=== PATIENT | female | born 1950 | race Caucasian/White ===

== ENCOUNTER 2018-04-12 20:32 | Inpatient (IN) | payer OTHER ==
[~2018-04-12] VITALS: Ht 160 cm; Wt 83.9 kg
--- OUTSIDE RECORDS SUMMARY | 2018-04-12 20:35 | XMS REPORT | Clinical Summary ---
Author Author [facility] Organization [facility] Address Unknown Phone Unavailable Care Team Providers Care Electronic Sales And Service Technician Name Role Phone Cristiano Tipton DO PCP Allergies Active Allergy Reactions Severity Noted Date Comments Lorazepam Other (See Comments) Medium 03/26/2017 Agitation, delirious Codeine 03/26/2017 Current Medications Prescription Sig. Disp. Refills Start End Date Status Date insulin ASPART (NovoLOG Inject 8 Units under the Active Flexpen) 100 unit/mL skin 3 (three) times a insulin pen day before meals. insulin GLARGINE (LANTUS Inject 24 Units under the Active SOLOSTAR) 100 unit/mL skin nightly. injection (pen) traZODone (DESYREL) 100 Take 100 mg by mouth Active MG tablet nightly as needed for sleep. pravastatin (PRAVACHOL) Take 10 mg by mouth Active 10 MG tablet nightly. memantine (NAMENDA 5 mg/day for=1 week; 5 mg 60 tablet 12 04/17/20 04/17/20 Active TITRATION JEANNINE) 5-10 mg twice daily for=1 week; 17 18 tablet pack 15 mg/day given in 5 mg and 10 mg doses for=1 week; then 10 mg twice daily melatonin 3 mg tablet Take 3 mg by mouth Active nightly as needed for sleep. lisinopril Take 1 tablet (10 mg 60 tablet 0 07/25/20 Active (PRINIVIL,ZESTRIL) 10 mg total) by mouth 2 (two) 17 tablet times a day for 30 days. lisinopril Take 10 mg by mouth every 07/25/20 Discontin (PRINIVIL,ZESTRIL) 10 mg morning. 17 ued tablet aspirin (ECOTRIN) 81 MG Take 81 mg by mouth every 07/25/20 Discontin enteric coated tablet morning. 17 ued biotin 5 mg capsule Take 5 mg by mouth every 07/24/20 Discontin morning. 17 ued amLODIPine (NORVASC) 5 mg Take 1 tablet (5 mg 30 tablet 0 07/25/20 08/24/20 tablet total) by mouth daily for 17 17 30 days. aspirin (ECOTRIN) 325 MG Take 1 tablet (325 mg 30 tablet 0 07/25/20 08/24/20 enteric coated tablet total) by mouth daily for 17 17 30 days. Active Problems Problem Noted Date Severe anemia 04/08/2018 Altered mental status, unspecified 03/26/2017 Encounters Date Type Specialty Care Team Description 04/10/2018 Anesthesia Gastroenterology Nehemias Michel MD 04/10/2018 Procedure Pass Gastroenterology 04/10/2018 Surgery Gastroenterology Brodie Williamson MD COLONOSCOPY 04/08/2018 Emergency General Internal Medicine Nic Rock, Severe anemia (Primary - MD Dx); 04/10/2018 Karen Rodriguez MD Hypokalemia; Mitch Pimentel, DO Weakness 12/04/2017 Transcribe Access Jay Tipton, Nonintractable episodic Orders DO headache, unspecified headache type (Primary Dx); Personal history of malignant neoplasm of bronchus and lung 07/24/2017 Emergency General Internal Medicine Catrachito Singh MD Altered mental status, - Thomas Sharma MD unspecified (Primary Dx) 07/25/2017 04/17/2017 Lab Lab Deonna Carlisle MD Memory difficulties; Vascular dementia without behavioral disturbance 04/17/2017 Office Visit Neurology Deonna Carlisle MD Memory difficulties (Primary Dx); Vascular dementia without behavioral disturbance; Gait difficulty after 04/11/2017 Family History Medical History Relation Name Comments Cancer Father Tumor in stomach Diabetes Mother Relation Name Status Comments Father Mother Social History Tobacco Use Types Packs/Day Years Used Date Former Smoker Cigarettes 1 Quit: 2009 Smokeless Tobacco: Never Used Alcohol Use Drinks/Week oz/Week Comments No Sex Assigned at Date Recorded Not on file Last Filed Vital Signs Vital Sign Reading Time Taken Blood Pressure 102/63 04/10/2018 4:48 PM CDT Pulse 60 04/10/2018 4:48 PM CDT Temperature 36.6 C (97.8 F) 04/10/2018 4:48 PM CDT Respiratory Rate 21 04/10/2018 4:48 PM CDT Oxygen Saturation 99% 04/10/2018 4:48 PM CDT Inhaled Oxygen - - Concentration Weight 85.3 kg (188 lb) 04/08/2018 3:53 PM CDT Height 157.5 cm (5' 2") 04/08/2018 3:53 PM CDT Body Mass Index 34.39 04/08/2018 3:53 PM CDT Plan of Treatment Health Maintenance Due Date Last Done Comments DIABETIC FOOT EXAM 1960 DIABETIC RETINAL EYE EXAM 1960 COLON CANCER SCREENING 2000 SHINGRIX VACCINE (#1) 2000 ZOSTER VACCINE 2010 BREAST CANCER SCREENING 02/24/2015 02/24/2013, 02/11/2013 PNEUMOCOCCAL 2015 POLYSACCHARIDE VACCINE AGE 65 AND OVER PNEUMOCOCCAL-13 2015 INFLUENZA VACCINE 06/24/2018 Procedures Procedure Name Priority Date/Time Associated Diagnosis Comments ESOPHAGOGASTRODUODENOSCOP 04/10/2018 ANEMIA Y (EGD) 9:30 AM CDT COLONOSCOPY 04/10/2018 ANEMIA 9:30 AM CDT SC CRITICAL CARE, E/M Routine 04/08/2018 Results for this 30-74 MINUTES 4:09 PM CDT procedure are in the results section. ECHOCARDIOGRAM 2D Routine 07/24/2017 Results for this COMPLETE W MMODE SPECTRAL 7:05 PM CDT procedure are in the COLOR DOPPLER ([id number]) results section. after 04/11/2017 Results * POC glucose (04/10/2018 5:08 PM) Only the most recent of 9 results within the time period is included. Component Value Ref Range POC glucose 159 (H) 65 - 99 mg/dL Comment: Meter ID: [id number] Manufacturing Engineer Paint: Wojciech Francis Specimen Performing Laboratory [facility] DEPARTMENT OF PATHOLOGY AND GENOMIC MEDICINE [address] [place] [address] * Estimated GFR (04/10/2018 4:45 PM) Only the most recent of 5 results within the time period is included. Component Value Ref Range GFR Non Af Amer 62 mL/min/1.73 m2 GFR Af Amer 76 mL/min/1.73 m2 Comment: Chronic kidney disease: <60 mL/min/1.73m2 Kidney failure: <15 mL/min/1.73m2 The estimated GFR is calculated from the IDMS-traceable Modification of Diet in Renal Disease Equation. The accuracy of the calculation is poor when the creatinine is normal. Calculated values >90 mL/min/1.73m2 are not reported. This equation has not been validated in children (<18 years), women, the elderly (>70 years), or ethnic groups other than Caucasians and Americans. Specimen Performing Laboratory Plasma specimen [facility] PATHOLOGY AND [facility] [address] [place] [address] * Basic metabolic panel (04/10/2018 4:45 PM) Only the most recent of 3 results within the time period is included. Component Value Ref Range Sodium 140 135 - 148 mEq/L Potassium 3.4 (L) 3.5 - 5.0 mEq/L Chloride 102 98 - 112 mEq/L CO2 21 (L) 24 - 31 mEq/L Anion gap 17@ANIO (H) 7 - 15 mEq/L BUN 10 8 - 23 mg/dL Creatinine 0.9 0.5 - 0.9 mg/dL Glucose 175 (H) 65 - 99 mg/dL Calcium 8.5 (L) 8.8 - 10.2 mg/dL Specimen Performing Laboratory Plasma specimen [facility] PATHOLOGY AND [facility] [address] [place] [address] * Smear review (04/10/2018 4:52 AM) Only the most recent of 4 results within the time period is included. Component Value Ref Range Platelet slide review Dorita adequate Anisocytosis Marked (A) Polychromasia Moderate Tear drop cells Occasional Schistocytes Occasional Ovalocytes Moderate Bite Cells Moderate (A) Elliptocytes Occasional Anisochromia Moderate Specimen Performing Laboratory [facility] PATHOLOGY AND [facility] [address] [place] [address] * CBC with platelet and differential (04/10/2018 4:52 AM) Only the most recent of 4 results within the time period is included. Component Value Ref Range WBC 5.24 4.50 - 11.00 k/uL RBC 4.92 4.20 - 5.50 m/uL HGB 9.0 (L) 12.0 - 16.0 g/dL HCT 32.0 (L) 37.0 - 47.0 % MCV 65.0 (L) 82.0 - 100.0 fL MCH 18.3 (L) 27.0 - 34.0 pg MCHC 28.1 (L) 31.0 - 37.0 g/dL RDW - SD 55.0 37.0 - 55.0 fL MPV ---- 8.8 - 13.2 fL Platelet count 211 150 - 400 k/uL Nucleated RBC 0.00 /100 WBC Neutrophils 66.2 39.0 - 69.0 % Lymphocytes 22.3 (L) 25.0 - 45.0 % Monocytes 6.7 0.0 - 10.0 % Eosinophils 3.4 0.0 - 5.0 % Basophils 1.0 0.0 - 1.0 % Specimen Performing Laboratory Blood [facility] DEPARTMENT OF PATHOLOGY AND GENOMIC MEDICINE [address] [place] [address] * ECG Pre/Post Op (04/09/2018 1:12 PM) Component Value Ref Range Ventricular rate 82 Atrial rate 82 SC interval 188 QRSD interval 78 QT interval 410 QTC interval 479 P axis 1 49 QRS axis 1 11 T wave axis 53 EKG impression Normal sinus rhythm-Normal ECG-In automated comparison with ECG of 24-JUL-2017 13:42,-No significant change was found- Specimen Performing Laboratory [facility] MUSE [address] [place] [address] * Ferritin level (04/09/2018 12:00 PM) Component Value Ref Range Ferritin level <13 (A) 13 - 150 ng/mL Specimen Performing Laboratory Plasma specimen [facility] DEPARTMENT OF PATHOLOGY AND GENOMIC MEDICINE [address] [place], [place] [id number] * CT Lumbar Spine Wo Contrast (04/09/2018 9:39 AM) Specimen [facility] [address] [place], [place] [id number] Narrative EXAMINATION:CT LUMBAR SPINE WO CONTRAST CLINICAL HISTORY:back pain COMPARISON: None. FINDINGS: Noncontrast CT lumbar spine is interpreted. CT imaging was performed with iterative reconstruction techniques and/or automated exposure control to reduce radiation dose. Evaluation of the canal contents is limited by the absence of intrathecal contrast. Vertebral heights are preserved. No displaced fracture is seen. No aggressive bone lesion is identified. L1-2: Minimal disc degenerative changes. L2-3: Mild disc degenerative changes. Question of minimal disc bulge. Minimal facet degenerative changes. L3-4: Mild disc degenerative changes. Question of minimal disc bulge. Minimal bilateral facet degenerative changes. L4-5: Mild disc degenerative changes. Minimal bilateral facet degenerative changes. L5-S1: Mild disc degenerative changes that are asymmetric and most pronounced on the right. Moderate right and mild left facet arthrosis. The paraspinous soft tissues are unremarkable. IMPRESSION: No acute abnormality of the lumbar spine is identified. [facility]-[id number] Procedure Note Hm Interface, Radiology Results - 04/09/2018 9:51 AM CDT EXAMINATION: CT LUMBAR SPINE WO CONTRAST CLINICAL HISTORY: back pain COMPARISON: None. FINDINGS: Noncontrast CT lumbar spine is interpreted. CT imaging was performed with iterative reconstruction techniques and/or automated exposure control to reduce radiation dose. Evaluation of the canal contents is limited by the absence of intrathecal contrast. Vertebral heights are preserved. No displaced fracture is seen. No aggressive bone lesion is identified. L1-2: Minimal disc degenerative changes. L2-3: Mild disc degenerative changes. Question of minimal disc bulge. Minimal facet degenerative changes. L3-4: Mild disc degenerative changes. Question of minimal disc bulge. Minimal bilateral facet degenerative changes. L4-5: Mild disc degenerative changes. Minimal bilateral facet degenerative changes. L5-S1: Mild disc degenerative changes that are asymmetric and most pronounced on the right. Moderate right and mild left facet arthrosis. The paraspinous soft tissues are unremarkable. IMPRESSION: No acute abnormality of the lumbar spine is identified. [facility]-[id number] * Transfuse RBC (04/09/2018 5:16 AM) Only the most recent of 3 results within the time period is included. * Prepare RBC, 2 Units (04/08/2018 6:46 PM) Component Value Ref Range Product name Red Blood Cells -1, Leukored Unit number [id number] Product code [id number] Dispense status Transfused Blood expiration date Blood type code 8400 Blood type AB POSITIVE Product name Red Blood Cells -1, Leukored Unit number [id number] Product code [id number] Dispense status Transfused Blood expiration date Blood type code 8400 Blood type AB POSITIVE Specimen Performing Laboratory [facility] DEPARTMENT OF PATHOLOGY AND GENOMIC MEDICINE [address] [place] [address] * Type and screen (04/08/2018 6:46 PM) Component Value Ref Range ABO grouping AB Rh type POS Antibody screen NEG Specimen Performing Laboratory Blood [facility] DEPARTMENT PATHOLOGY AND [address] [place] [address] * Urinalysis screen and microscopy, with reflex to culture (04/08/2018 6:25 PM) Only the most recent of 2 results within the time period is included. Component Value Ref Range Specimen site Clean catch Color, UA Yellow Appearance, UA Clear Specific gravity, UA 1.006 1.001 - 1.035 pH, UA 7.0 5.0 - 8.5 Protein, UA 3+ (A) Negative Glucose, UA 3+ (A) Negative Ketones, UA Negative Negative Bilirubin, UA Negative Negative Blood, UA Negative Negative Nitrite, UA Negative Negative Urobilinogen, UA Negative <2.0 Leukocyte esterase, UA Negative Negative Epithelial cells, UA Few /HPF WBC, UA 0-5 0 - 4 /HPF RBC, UA 0-5 0 - 5 /HPF Bacteria, UA None seen None seen Yeast, UA None seen Yeast with pseudohyphae, None seen UA Specimen Performing Laboratory Urine [facility] PATHOLOGY [address] [place] [address] * Urine culture (04/08/2018 6:25 PM) Only the most recent of 2 results within the time period is included. Component Value Ref Range Urine culture SEE COMMENTComment: Bacteriuria screen negative. Specimen Performing Laboratory Urine [facility] PATHOLOGY [address] [place] [address] * CRITICAL CARE (04/08/2018 4:09 PM) Narrative Nic Rock MD 04/08/20189:46 PM Critical Care Performed by: NIC ROCK Authorized by: NIC ROCK Critical care provider statement: Critical care time (minutes):35 Critical care time was exclusive of:Separately billable procedures and treating other patients Critical care was necessary to treat or prevent imminent or life-threatening deterioration of the following conditions:Circulatory failure Critical care was time spent personally by me on the following activities:Blood draw for specimens, development of treatment plan with patient or surrogate, discussions with primary provider, discussions with consultants, ordering and performing treatments and interventions, ordering and review of laboratory studies, re-evaluation of patient's condition, pulse oximetry, review of old charts, evaluation of patient's response to treatment, examination of patient, obtaining history from patient or surrogate and interpretation of cardiac output measurements Tye 'yes' if you are taking over critical care for this patient from another provider.: no * Thyroid stimulating hormone (04/08/2018 10:10 AM) Only the most recent of 2 results within the time period is included. Component Value Ref Range TSH 2.73 0.27 - 4.20 uIU/mL Specimen Performing Laboratory Plasma specimen [facility] DEPARTMENT OF PATHOLOGY AND GENOMIC MEDICINE [address] [place] [address] * Hemoglobin A1c (04/08/2018 10:10 AM) Only the most recent of 2 results within the time period is included. Component Value Ref Range Hemoglobin A1C 7.4 (H) 4.0 - 6.0 % Comment: Less than 6% - Goal of therapy for Type II Diabetes Less than 7%- Goal of therapy for Type I Diabetes Less than 8%- Acceptable control for Type I or Type II Diabetes Greater than 8%- Unacceptable control; action indicated. (A DA94) Specimen Performing Laboratory Blood [facility] OF PATHOLOGY AND [facility] MEDICINE [address] [place] [address] [place] [address] * Lipid panel (04/08/2018 10:10 AM) Only the most recent of 3 results within the time period is included. Component Value Ref Range Cholesterol 120 <200 mg/dL Triglycerides 163 (H) <150 mg/dL HDL cholesterol 37 (L) >40 mg/dL LDL cholesterol 56Comment: Result obtained by direct LDL <100 mg/dL measurement Lipid panel SeeBelow interpretation Comment: Total Cholesterol (mg/dL) <200 Desirable 200-239 Borderline-high >=240 High Triglycerides (mg/dL) <150 Normal 150-199 Borderline-high 200-499 High >=500 Very high HDL Cholesterol (mg/dL) <40 Low (male) <40 Low (female) LDL Cholesterol (mg/dL) <100 Optimal 100-129 Near or above optimal 130-159 Borderline-high 160-189 High >=190 Very high Risk Catergories that modify LDL goals. Risk Catergories LDL goal (mg/dL) CHD and CHD risk equivalent <100 (10-year risk >20%) Multiple (2+) risk factors <130 (10-year risk=<20%) 0-1 risk factors <160 (<10-year risk) Defining levels of lipids in metabolic syndrome Triglycerides >=150 mg/dL HDL Cholesterol Men <40 mg/dL Women <40 mg/dL Non-HDL cholesterol is a second target for therapy in persons with high triglycerides (>=200 mg/dL) Specimen Performing Laboratory Plasma specimen [facility] OF PATHOLOGY AND GENOMIC MEDICINE [address] [place] [address] [place] [address] * Comprehensive metabolic panel (04/08/2018 10:10 AM) Only the most recent of 2 results within the time period is included. Component Value Ref Range Sodium 143 135 - 148 mEq/L Potassium 2.7 (LL) 3.5 - 5.0 mEq/L Comment: Results called to and read back by ILNDA WALDEN AT DR. TIPTON OFFICE at 04/08/2018 14:10 by _EL_. Chloride 101 98 - 112 mEq/L CO2 26 24 - 31 mEq/L Anion gap 16@ANIO (H) 7 - 15 mEq/L BUN 10 8 - 23 mg/dL Creatinine 0.7 0.5 - 0.9 mg/dL Glucose 191 (H) 65 - 99 mg/dL Calcium 9.2 8.8 - 10.2 mg/dL Protein 7.6 6.3 - 8.3 g/dL Comment: 4.6-7.0 g/dL 1 week 4.4-7.6 g/dL 7 months-1year 5.1-7.3 g/dL 1-2 years 5.6-7.5 g/dL >3 years 6.0-8.0 g/dL 18-150 6.3-8.3 g/dL Albumin 4.0 3.5 - 5.0 g/dL A/G ratio 1.1 0.7 - 3.8 Alkaline phosphatase 121 (H) 35 - 104 U/L AST 41 (H) 10 - 35 U/L ALT 29 5 - 50 U/L Total bilirubin 0.5 0.0 - 1.2 mg/dL Specimen Performing Laboratory Plasma specimen [facility] DEPARTMENT OF PATHOLOGY AND GENOMIC MEDICINE [address] [place] [address] * Pv carotid duplex (07/25/2017 10:25 AM) Component Value Ref Range L CCA Prox 11 cm/s L CCA Prox 81.2 cm/s L ECA Prox 10.3 cm/s L ECA Prox 148.3 cm/s R ECA Prox 5.4 cm/s L ICA Prox 33.3 cm/s L ICA Prox 120.4 cm/s R ICA Prox 17.6 cm/s R ICA Prox 100 cm/s L ICA/CCA Ratio 1.6 R ICA/CCA Ratio 1.3 L CCA Max 81.20 cm/s R CCA Max 114.50 cm/s L ICA Max 120.40 cm/s R ICA Max 139.10 cm/s R CCA Prox 10.9 cm/s R CCA Prox 60.3 cm/s R ICA Dist 23 cm/s L ICA Dist 27.3 cm/s L ICA DIST 83.8 cm/s R Car Bulb 145.70 cm/s R CCA Dist 12.8 cm/s R CCA Dist 114.5 cm/s R Vert Art 6.40 cm/s L Car Bulb 28.40 cm/s L Car Bulb 128.50 cm/s R Car Bulb 27.40 cm/s L CCA Dist 13.1 cm/s L CCA Dist 64.7 cm/s R ECA Prox 86.00 cm/s R ICA Dist 139.1 cm/s L Vert Art 17.60 cm/s L Vert Art 62.8 cm/s R Vert Art 38.60 cm/s Specimen Performing Laboratory [facility] [address] [place] [address] Narrative There is moderate atherosclerotic plaque in the right carotid bulb associated with 50-69% stenosis in the right ICA. There is moderate atheromatous plaque in the left carotid bulb associated with the 50-69% stenosis in the left ICA. * Sedimentation rate (07/24/2017 7:29 PM) Component Value Ref Range Sedimentation rate 46 (H) 0 - 20 mm/hr Specimen Performing Laboratory Blood [facility] DEPARTMENT OF PATHOLOGY AND GENOMIC MEDICINE [address] [place] [address] * RAMY (07/24/2017 7:29 PM) Component Value Ref Range RAMY screen Not Detected Not-Detected Specimen Performing Laboratory Blood [facility] DEPARTMENT OF PATHOLOGY AND GENOMIC MEDICINE [address] [place] [address] * Vitamin B12 level (07/24/2017 7:29 PM) Only the most recent of 2 results within the time period is included. Component Value Ref Range Vitamin B12 441 211 - 946 pg/mL Comment: Significant overlap exists between normal and deficiency states. However, most patients with deficiencies will have Serum B12 <200 pg/mL. Specimen Performing Laboratory Serum [facility] DEPARTMENT OF PATHOLOGY AND GENOMIC MEDICINE [address] [place] [address] * Echocardiogram complete w contrast and 3D if needed (07/24/2017 7:05 PM) Component Value Ref Range BSA 1.96 m2 AoV Area, Vmax 3.07 cm2 AoV Area, VTI 3.71 cm2 AoV Mean PG 7.23 mmHg AoV Peak PG 16.81 mmHg AoV Vmax 2.05 m/s AoV VTI 0.32 m IVS,d 1.36 (A) 0.6 - 1.2 cm LV,d 4.49 cm LV,s 3.17 cm LVOT Diam,S 2.34 cm LVOT Vmax 1.46 m/s LVOT VTI 0.28 m LVPWD,d 1.44 cm MV E A ratio 0.61 mmHg MR Vmax 3.52 m/s MR peak grad 49.42 mmHg E wave decelartion time 159.81 msec MV Peak A Yasir 1.30 m/s MV valve area p 1/2 4.69 cm2 method MV Peak E Yasir 0.80 m/s MV stenosis pressure 1/2 46.94 ms time AV LVOT peak gradient 8.54 mmHg LV SYS VOL 40.04 ml LV [place] VOL 92.14 ml LV SV Teich 2D 52.10 ml LVOT SI 63.60 ml/m2 AoV Cusp sep 1.90 AoV Vmn 1.25 IVS s 2D 1.80 LA Ao Ratio Mmode 0.97 LVOT Vmn 1.11 Pt Size 152.40 Pt Wt 90.72 PV AT 55.36 msec LVOT mean grad 5.19 mmHg LVPW s PLAX 1.73 cm MV Decel slope 4.98 m/s2 Velocity Ratio (V1/V2) 0.71 m/s EF 56.54 % E/A ratio 0.62 LVOT area 4.30 cm2 LA diam s 3.50 cm Aortic Root 3.70 E prime lat 0.08 E fela sept 0.07 PV acc T slope 9.70 Specimen Performing Laboratory [facility] [address] [place] [address] Narrative The left ventricle chamber size is normal. Left Ventricular ejection fraction is 55 - 60%. Right ventricular size is normal. No pericardial effusion The study is technically difficult, limited image quality due to patient body habitus, limited information obtainable * ECG ED Preliminary Interpretation - NOT AN ORDER (07/24/2017 4:07 PM) Narrative Catrachito Singh MD 07/24/20174:07 PM ECG ED Preliminary Interpretation - Not an Order Performed by: CATRACHITO SINGH Authorized by: CATRACHITO SINGH ECG reviewed by ED Physician in the absence of a biofuels product manager: yes Interpretation: Interpretation: normal Rate: ECG rate:102 ECG rate assessment: normal Rhythm: Rhythm: sinus tachycardia Ectopy: Ectopy: none QRS: QRS axis:Normal Conduction: Conduction: normal ST segments: ST segments:Normal T waves: T waves: normal * XR Chest 1 Vw Portable (07/24/2017 2:24 PM) Specimen Performing Laboratory [facility] [address] [place] [address] Narrative EXAMINATION:XR CHEST 1 VW PORTABLE CLINICAL HISTORY:confusion ams COMPARISON:March 26, 2017 IMPRESSION: 1.There are scarring, volume loss, and pleural thickening at the right lung apex unchanged since prior study. 2.Left-sided Port-A-Cath tip is in the superior vena cava. 3.There is vascular congestion with basal volume loss. More confluent infiltrate or pneumonia at left lung base may be present, and follow-up studies would be suggested to determine resolution. [id number] Procedure Note Hm Interface, Radiology Results Incoming - 07/24/2017 2:29 PM CDT EXAMINATION: XR CHEST 1 VW PORTABLE CLINICAL HISTORY: confusion ams COMPARISON: March 26, 2017 IMPRESSION: 1. There are scarring, volume loss, and pleural thickening at the right lung apex unchanged since prior study. 2. Left-sided Port-A-Cath tip is in the superior vena cava. 3. There is vascular congestion with basal volume loss. More confluent infiltrate or pneumonia at left lung base may be present, and follow-up studies would be suggested to determine resolution. [id number] * Bedside glucose (07/24/2017 2:01 PM) Component Value Ref Range POC glucose 311 Specimen Performing Laboratory Blood * Troponin (07/24/2017 1:50 PM) Component Value Ref Range Troponin <0.300 0.000 - 0.300 ng/mL Comment: 0.30 - 1.49 ng/ml May indicate increased risk of acute coronary syndrome. >=1.5 ng/ml Consistent with acute myocardial infarction. The diagnostic value of a single normal or non-diagnostic result is questionable. Serial samples at 2-6 hour intervals are required to rule out acute myocardial injury. Specimen Performing Laboratory Plasma specimen [facility] DEPARTMENT OF PATHOLOGY AND [facility] MEDICINE [address] [place] [address] [place] [address] * Partial thromboplastin time, activated (07/24/2017 1:50 PM) Component Value Ref Range PTT 28.6 23.0 - 36.0 sec Comment: PTT therapeutic range for unfractionated heparin is 61.0-112.0 seconds which corresponds to Anti-Xa 0.3-0.7 U/ml. Specimen Performing Laboratory Blood [facility] PATHOLOGY AND [facility] [address] [place] [address] [place] [address] * Prothrombin time with INR (07/24/2017 1:50 PM) Component Value Ref Range Prothrombin time 13.9 12.0 - 15.0 sec INR 1.1 Comment: The International Normalized Ratio (INR) is a therapeutic monitoring tool for patients who are stable on oral anticoagulant therapy. An INR of 2.0-3.0 is suggested for deep vein thrombosis/pulmonary embolism. Specimen Performing Laboratory Blood [facility] DEPARTMENT OF PATHOLOGY AND [facility] [id number] [place] [address] [place] [address] * ECG 12 lead (07/24/2017 1:42 PM) Component Value Ref Range Ventricular rate 102 Atrial rate 102 SC interval 162 QRSD interval 80 QT interval 352 QTC interval 458 P axis 1 42 QRS axis 1 18 T wave axis 40 EKG impression Sinus tachycardia-Otherwise normal ECG-In automated comparison with ECG of 26-MAR-2017 13:08,-No significant change was found- Specimen Performing Laboratory [facility] M[facility] [address] [place] [address] * CT Stroke Brain Wo Contrast (07/24/2017 1:40 PM) Specimen Performing Laboratory [facility] [address] [place] [address] Narrative EXAMINATION:CT STROKE BRAIN WO CONTRAST CLINICAL HISTORY:Muscle Weakness in Limbs COMPARISON:MRI of the brain dated March 27, 2017 FINDINGS: There is generalized brain parenchymal involution atrophy with white matter nonspecific hypodensities. There is minimal nonspecific ventriculomegaly most likely related to central volume loss. There is no evidence of acute hemorrhage, mass lesion, or midline shift. The hart-white matter differentiation is preserved with no evidence of acute territorial infarction. Ventricles, sulci, and cisterns are age-appropriate in size and configuration. There is no extra-axial fluid collection. Visualized paranasal sinuses and mastoid air cells are clear. Bones, orbits, and soft tissues are unremarkable All CT images were acquired using low-dose technique with automated exposure control. IMPRESSION: No acute intracranial hemorrhage or mass effect. Findings discussed withDr. Singh on 07/24/2017 1:45 PM , and he verbalized understanding of the report. [facility]-[id number] Procedure Note Hm Interface, Radiology Results Incoming - 07/24/2017 1:50 PM CDT EXAMINATION: CT STROKE BRAIN WO CONTRAST CLINICAL HISTORY: Muscle Weakness in Limbs COMPARISON: MRI of the brain dated March 27, 2017 FINDINGS: There is generalized brain parenchymal involution atrophy with white matter nonspecific hypodensities. There is minimal nonspecific ventriculomegaly most likely related to central volume loss. There is no evidence of acute hemorrhage, mass lesion, or midline shift. The hart-white matter differentiation is preserved with no evidence of acute territorial infarction. Ventricles, sulci, and cisterns are age-appropriate in size and configuration. There is no extra-axial fluid collection. Visualized paranasal sinuses and mastoid air cells are clear. Bones, orbits, and soft tissues are unremarkable All CT images were acquired using low-dose technique with automated exposure control. IMPRESSION: No acute intracranial hemorrhage or mass effect. Findings discussed with Dr. Singh on 07/24/2017 1:45 PM , and he verbalized understanding of the report. [facility]-[id number] after 04/11/2017 Insurance Payer Benefit Subscriber ID Type Phone Address Plan / Group [facility] xxxxxxxxxxx Home: [facility] [place] [facility] [place] [id number]
[2018-04-12] MEDS ORDERED: SODIUM CHLORIDE 0.9% 500ML 500 ML IV STA (22:46)
[2018-04-12] MEDS ORDERED: ASPIRIN 81 MG CHEW TAB PO ONE (23:00)
[2018-04-12 23:10] LABS: BASOPHILS % 0.6 % (0.0-1.0); EOSINOPHILS # (AUTO) 0.1 (0.0-0.4); EOSINOPHILS % 1.9 % (0.0-6.0); HEMATOCRIT 33.3 % (34.2-44.1); HEMOGLOBIN 9.3 g/dL (12.0-16.0); LYMPHOCYTES # (AUTO) 0.9 (1.0-3.2); LYMPHOCYTES % 14.1 % (18.0-39.1); MEAN CORPUSCULAR HEMOGLOBIN 18.7 pg (28-32); MEAN CORPUSCULAR HGB CONC 27.9 g/dL (31-35); MONOCYTES # (AUTO) 0.4 (0.2-0.8); MONOCYTES % 6.1 % (4.4-11.3); NEUTROPHILS # (AUTO) 4.7 (2.1-6.9); NEUTROPHILS % 76.7 % (38.7-80.0); PLATELET COUNT 179 x10e3/uL (140-360); RED BLOOD COUNT 4.97 x10e6/uL (3.6-5.1); RED CELL DISTRIBUTION WIDTH 27.9 % (11.7-14.4)
[2018-04-12 23:12] LABS: INR 1.14; PROTHROMBIN TIME 13.7 seconds (11.9-14.5)
[2018-04-12 23:13] LABS: PARTIAL THROMBOPLASTIN TIME 29.7 seconds (23.8-35.5)
[2018-04-12 23:20] LABS: ALANINE AMINOTRANSFERASE 26 IU/L (0-55); ALBUMIN 3.6 g/dL (3.5-5.0); ALBUMIN/GLOBULIN RATIO 0.9 (0.8-2.0); ALKALINE PHOSPHATASE 127 IU/L (40-150); ANION GAP 14.2 mmol/L (8-16); BLOOD UREA NITROGEN 9 mg/dL (7-26); BUN/CREATININE RATIO 11 (6-25); CALCIUM 9.4 mg/dL (8.4-10.2); CARBON DIOXIDE 23 mmol/L (22-29); CHLORIDE 106 mmol/L (98-107); CREATINE KINASE 19 IU/L (29-168); CREATININE, SERUM 0.84 mg/dL (0.57-1.11); EST GLOMERULAR FILTRATION RATE > 60 ML/MIN (60-); GLUCOSE 138 mg/dL (74-118); MAGNESIUM 1.6 MG/DL (1.3-2.1); POTASSIUM 3.2 mmol/L (3.5-5.1); SODIUM 140 mmol/L (136-145)
[2018-04-12 23:26] LABS: ANISOCYTOSIS MARKED; HYPOCHROMASIA MODERATE; MICROCYTOSIS MODERATE; PLATELET ESTIMATE ADEQUATE; PLATELET MORPHOLOGY COMMENT FEW LARGE; RBC MORPHOLOGY COMMENT ABNORMAL
[2018-04-13] VITALS (8 sets, daily range): BP systolic 146–161; BP diastolic 63–71
--- NOTE | 2018-04-13 00:05 | Diagnostic Imaging Report ---
Exam: Head CT without contrast History: Fall, syncope Comparison studies: None Technique: Axial images were obtained from the skull base to the vertex. Coronal and sagittal images reconstructed from the axial data. Intravenous contrast: None Findings: Scalp: No abnormalities. Bones: No fractures, blastic or lytic lesions. Brain sulci: Mildly prominent. Ventricles: Moderate compensatory dilatation. No hydrocephalus. Extra-axial spaces: No masses, no fluid collection. Parenchyma: No mass, acute hemorrhage or acute cortical vascular insults. Scattered confluent hypodensities in the supratentorial white matter are nonspecific but most compatible with chronic small vessel ischemic changes. There are small chronic lacunar infarcts in the head of caudate nuclei bilaterally and in the left thalamus. Sellar/suprasellar region: No abnormalities. Craniocervical junction: Patent foramen magnum. No Chiari one malformation. Incidental findings: Atherosclerotic calcifications in the carotid siphons and chronic depressed right lamina appreciable fracture. Depressed fracture of the right lamina appreciable. IMPRESSION: No acute intracranial abnormalities. Chronic findings: 1. Moderate generalized volume loss. 2. Moderate microvascular ischemic changes. 3. Chronic lacunar infarcts in the caudate nuclei and left thalamus. Signed by: Dr. Jarrett Mack M.D. on 04/13/2018 12:01 AM
--- NOTE | 2018-04-13 00:05 | Diagnostic Imaging Report ---
EXAMINATION: CHEST SINGLE (PORTABLE) INDICATION: Status post fall, syncope COMPARISON: None FINDINGS: TUBES and LINES: Left upper chest port visualized with tip overlying the region of the proximal SVC. LUNGS: Lungs are not well inflated. Confluent spiculated mass in the right lung apex may represent a neoplasm or a confluent fibrosis. There is no evidence of pneumonia or pulmonary edema. PLEURA: No pleural effusion or pneumothorax. HEART AND MEDIASTINUM: Cardiac size is mildly enlarged. Widening mediastinum most likely due to poor inspiration. BONES AND SOFT TISSUES: No acute osseous lesion. Soft tissues are unremarkable. UPPER ABDOMEN: No free air under the diaphragm. IMPRESSION: 1. No acute thoracic abnormality. 2. Right apical soft tissue opacity compatible with mass versus scar. 3. Correlate for history of lung neoplasm. If clinically indicated, CT of the chest with IV contrast can be obtained. Signed by: Dr. Abhi Shaikh M.D. on 04/13/2018 12:02 AM
[2018-04-13] MEDS ORDERED: SODIUM CHLORIDE FLUSH 10 ML SYR INJ PRN (01:45)
[2018-04-13] MEDS ORDERED: ONDANSETRON HCL INJ 2 MG/ML VIAL IV PRN (01:45)
--- OUTSIDE RECORDS SUMMARY | 2018-04-13 01:57 | XMS REPORT ---
Author Author [facility] Address Unknown Phone Unavailable Care Team Providers Care Manufacturing Engineering Director Name Role Phone OLIVER HOLLOWAY Unavailable Unavailable Problems This patient has no known problems. Allergies, Adverse Reactions, Alerts This patient has no known allergies or adverse reactions. Medications This patient has no known medications. Results Test Description Test Time Test Comments Text Results Atomic Results Result Comments CT BRAIN WO [place] [address] Patient Name: WILLIE CHICAS MR #: [id number] : 1950 Age/Sex: 67/F Req #: [id number] Adm Physician: Ordered by: OLIVER HOLLOWAY MD Report #: [id number] Location: ER Room/Bed: Procedure: [id number] CT/CT BRAIN WO Exam Date: 04/12/18 Exam Time: 2330 REPORT STATUS: Signed Exam: Head CT without contrast History: Fall, syncope Comparison studies: None Technique: Axial images were obtained from the skull base to the vertex. Coronal and sagittal images reconstructed from the axial data. Intravenous contrast: None Findings: Scalp: No abnormalities. Bones: No fractures, blastic or lytic lesions. Brain sulci: Mildly prominent. Ventricles: Moderate compensatory dilatation. No hydrocephalus. Extra-axial spaces: No masses, no fluid collection. Parenchyma: No mass, acute hemorrhage or acute cortical vascular insults. Scattered confluent hypodensities in the supratentorial white matter are nonspecific but most compatible with chronic small vessel ischemic changes. There are small chronic lacunar infarcts in the head of caudate nuclei bilaterally and in the left thalamus. Sellar/ suprasellar region: No abnormalities. Craniocervical junction: Patent foramen magnum. No Chiari one malformation. Incidental findings: Atherosclerotic calcifications in the carotid siphons and chronic depressed right lamina appreciable fracture. Depressed fracture of the right lamina appreciable. IMPRESSION: No acute intracranial abnormalities. Chronic findings: 1. Moderate generalized volume loss. 2. Moderate microvascular ischemic changes. 3. Chronic lacunar infarcts in the caudate nuclei and left thalamus. Signed by: Dr. Catrachito Mack M.D. on 04/13/2018 12:01 AM Dictated By: CATRACHITO MACK MD 39 Transcribed By: LINDA on 04/13/182339 COPY TO: OLIVER HOLLOWAY MD CHEST SINGLE (PORTABLE) [place] [address] Patient Name: WILLIE CHICAS MR #: [id number] : 1950 Age/Sex: 67/F Req #: [id number] Adm Physician: Ordered by: OLIVER HOLLOWAY MD Report #: [id number] Location: ER Room/Bed: Procedure: [id number] DX/CHEST SINGLE (PORTABLE) Exam Date: 04/12/18 Exam Time: 2339 REPORT STATUS: Signed EXAMINATION: CHEST SINGLE (PORTABLE) INDICATION: Status post fall, syncope COMPARISON: None FINDINGS: TUBES and LINES: Left upper chest port visualized with tip overlying the region of the proximal SVC. LUNGS: Lungs are not well inflated. Confluent spiculated mass in the right lung apex may represent a neoplasm or a confluent fibrosis. There is no evidence of pneumonia or pulmonary edema. PLEURA: No pleural effusion or pneumothorax. HEART AND MEDIASTINUM: Cardiac size is mildly enlarged. Widening mediastinum most likely due to poor inspiration. BONES AND SOFT TISSUES: No acute osseous lesion. Soft tissues are unremarkable. UPPER ABDOMEN: No free air under the diaphragm. IMPRESSION: 1. No acute thoracic abnormality. 2. Right apical soft tissue opacity compatible with mass versus scar. 3. Correlate for history of lung neoplasm. If clinically indicated, CT of the chest with IV contrast can be obtained. Signed by: Dr. Abhi Shaikh M.D. on 04/13/2018 12:02 AM Dictated By: ABHI COLLADO MD 0002 Transcribed By: LINDA on 04/13/18 0002 COPY TO: OLIVER HOLLOWAY MD
--- OUTSIDE RECORDS SUMMARY | 2018-04-13 01:57 | XMS REPORT | Clinical Summary ---
Author Author [facility] [employer] Address Unknown Phone Unavailable Care Team Providers Care Cigar Head Pegger Name Role Phone Cristiano Tipton DO PCP [...] dementia without behavioral disturbance; Gait difficulty after 04/12/2017 Family History Medical History Relation Name Comments [...] CDT COLONOSCOPY 04/10/2018 ANEMIA 9:30 AM CDT MS CRITICAL CARE, E/M Routine 04/08/2018 Results for this 30-74 MINUTES 4:09 PM CDT procedure are in the results section. ECHOCARDIOGRAM 2D Routine 07/24/2017 Results for this COMPLETE W MMODE SPECTRAL 7:05 PM CDT procedure are in the [facility] (18442) results section. after 04/12/2017 Results * POC glucose (04/10/2018 5:08 PM) Only the most recent of 9 results within the time period is included. Component Value Ref Range POC glucose 159 (H) 65 - 99 mg/dL Comment: Meter ID: [id number] Clinical Pharmacist: Wojciech Francis Specimen Performing Laboratory [facility] DEPARTMENT OF PATHOLOGY AND GENOMIC MEDICINE [address] [place] [address] * Estimated GFR (04/10/2018 4:45 PM) Only [...] and Americans. Specimen Performing Laboratory Plasma specimen [facility] PATHOLOGY AND [facility] [address] [place] [address] * Basic metabolic panel (04/10/2018 4:45 PM) [...] 10.2 mg/dL Specimen Performing Laboratory Plasma specimen [facility] PATHOLOGY AND [facility] [address] [place] [address] * Smear review (04/10/2018 4:52 AM) Only the most recent of 4 results within the time period is included. Component Value Ref Range Platelet slide review Dorita adequate Anisocytosis Marked (A) Polychromasia Moderate Tear drop cells Occasional Schistocytes Occasional Ovalocytes Moderate Bite Cells Moderate (A) Elliptocytes Occasional Anisochromia Moderate Specimen Performing Laboratory [facility] PATHOLOGY AND [facility] [address] [place] [address] * CBC with platelet and differential (04/10/2018 [...] - 1.0 % Specimen Performing Laboratory Blood [facility] DEPARTMENT OF PATHOLOGY AND GENOMIC MEDICINE [address] [place] [address] * ECG Pre/Post Op (04/09/2018 1:12 PM) Component Value Ref Range Ventricular rate 82 Atrial rate 82 MS interval 188 QRSD interval 78 QT interval 410 QTC interval 479 P axis 1 49 QRS axis 1 11 T wave axis 53 EKG impression Normal sinus rhythm-Normal ECG-In automated comparison with ECG of 24-JUL-2017 13:42,-No significant change was found- Specimen Performing Laboratory [facility] [address] [place] [address] * Ferritin level (04/09/2018 12:00 PM) Component Value Ref Range Ferritin level <13 (A) 13 - 150 ng/mL Specimen Performing Laboratory Plasma specimen [facility] DEPARTMENT OF PATHOLOGY AND GENOMIC MEDICINE [address] [place], [place] [id number] * CT Lumbar Spine Wo Contrast (04/09/2018 9:39 AM) Specimen Performing Laboratory [facility] [address] [place], [place] [id number] Narrative EXAMINATION:CT LUMBAR SPINE WO CONTRAST CLINICAL [...] abnormality of the lumbar spine is identified. [facility]-[id number] Procedure Note Hm Interface, Radiology Results - [...] abnormality of the lumbar spine is identified. [facility]-[id number] * Transfuse RBC (04/09/2018 5:16 AM) Only the most recent of 3 results within the time period is included. * Prepare RBC, 2 Units (04/08/2018 6:46 PM) Component Value Ref Range Product name Red Blood Cells -1, Leukored Unit number [id number] Product code [id number] Dispense status Transfused Blood expiration date Blood type code 8400 Blood type AB POSITIVE Product name Red Blood Cells -1, Leukored Unit number [id number] Product code [id number] Dispense status Transfused Blood expiration date Blood type code 8400 Blood type AB POSITIVE Specimen Performing Laboratory [facility] DEPARTMENT OF PATHOLOGY AND GENOMIC MEDICINE [address] [place] [address] * Type and screen (04/08/2018 6:46 PM) Component Value Ref Range ABO grouping AB Rh type POS Antibody screen NEG Specimen Performing Laboratory Blood [facility] DEPARTMENT PATHOLOGY AND [address] [place] [address] * Urinalysis screen and microscopy, with reflex [...] None seen UA Specimen Performing Laboratory Urine [facility] PATHOLOGY [address] [place] [address] * Urine culture (04/08/2018 6:25 PM) Only the most recent of 2 results within the time period is included. Component Value Ref Range Urine culture SEE COMMENTComment: Bacteriuria screen negative. Specimen Performing Laboratory Urine [facility] PATHOLOGY [address] [place] [address] * CRITICAL CARE (04/08/2018 4:09 PM) Narrative [...] 4.20 uIU/mL Specimen Performing Laboratory Plasma specimen [facility] DEPARTMENT OF PATHOLOGY AND GENOMIC MEDICINE [address] [place] [address] * Hemoglobin A1c (04/08/2018 10:10 AM) Only [...] indicated. (A DA94) Specimen Performing Laboratory Blood [facility] OF PATHOLOGY AND [facility] MEDICINE [address] [place] [address] [place] [address] * Lipid panel (04/08/2018 10:10 AM) Only [...] (>=200 mg/dL) Specimen Performing Laboratory Plasma specimen [facility] OF PATHOLOGY AND GENOMIC MEDICINE [id number] [place] [address] [place] [address] * Comprehensive metabolic panel (04/08/2018 10:10 AM) Only the most recent of 2 results within the time period is included. Component Value Ref Range Sodium 143 135 - 148 mEq/L Potassium 2.7 (LL) 3.5 - 5.0 mEq/L Comment: Results called to and read back by LINDA WALDEN AT DR. TIPTON OFFICE at 04/08/2018 [...] 1.2 mg/dL Specimen Performing Laboratory Plasma specimen [facility] DEPARTMENT OF PATHOLOGY AND GENOMIC MEDICINE [address] [place] [address] * Pv carotid duplex (07/25/2017 10:25 AM) [...] Vert Art 38.60 cm/s Specimen [facility] [address] [place] [address] Narrative There is moderate atherosclerotic plaque in the right carotid bulb associated with 50-69% stenosis in the right ICA. There is moderate atheromatous plaque in the left carotid bulb associated with the 50-69% stenosis in the left ICA. * Sedimentation rate (07/24/2017 7:29 PM) Component Value Ref Range Sedimentation rate 46 (H) 0 - 20 mm/hr Specimen Performing Laboratory Blood [facility] DEPARTMENT OF PATHOLOGY AND GENOMIC MEDICINE [address] [place] [address] * RAMY (07/24/2017 7:29 PM) Component Value Ref Range RAMY screen Not Detected Not-Detected Specimen Performing Laboratory Blood [facility] DEPARTMENT OF PATHOLOGY AND GENOMIC MEDICINE [address] [place] [address] * Vitamin B12 level (07/24/2017 7:29 PM) Only the most recent of 2 results within the time period is included. Component Value Ref Range Vitamin B12 441 211 - 946 pg/mL Comment: Significant overlap exists between normal and deficiency states. However, most patients with deficiencies will have Serum B12 <200 pg/mL. Specimen Performing Laboratory Serum [facility] DEPARTMENT OF PATHOLOGY AND GENOMIC MEDICINE [address] [place] [address] * Echocardiogram complete w contrast and 3D [...] slope 9.70 Specimen Performing Laboratory [facility] [address] [place] [address] Narrative The left ventricle chamber size is [...] ED Physician in the absence of a barrelhead inspector: yes Interpretation: Interpretation: normal Rate: ECG rate:102 ECG rate assessment: normal Rhythm: Rhythm: sinus tachycardia Ectopy: Ectopy: none QRS: QRS axis:Normal Conduction: Conduction: normal ST segments: ST segments:Normal T waves: T waves: normal * XR Chest 1 Vw Portable (07/24/2017 2:24 PM) Specimen Performing Laboratory [facility] [address] [place] [address] Narrative EXAMINATION:XR CHEST 1 VW PORTABLE CLINICAL [...] studies would be suggested to determine resolution. [id number] Procedure Note Hm Interface, Radiology Results Incoming [...] studies would be suggested to determine resolution. [id number] * Bedside glucose (07/24/2017 2:01 PM) Component [...] myocardial injury. Specimen Performing Laboratory Plasma specimen [facility] DEPARTMENT OF PATHOLOGY AND [facility] MEDICINE [id number] [place] [address] [place] [address] * Partial thromboplastin time, activated (07/24/2017 1:50 PM) Component Value Ref Range PTT 28.6 23.0 - 36.0 sec Comment: PTT therapeutic range for unfractionated heparin is 61.0-112.0 seconds which corresponds to Anti-Xa 0.3-0.7 U/ml. Specimen Performing Laboratory Blood [facility] PATHOLOGY AND [facility] [address] [place] [address] [place] [address] * Prothrombin time with INR (07/24/2017 1:50 PM) Component Value Ref Range Prothrombin time 13.9 12.0 - 15.0 sec INR 1.1 Comment: The International Normalized Ratio (INR) is a therapeutic monitoring tool for patients who are stable on oral anticoagulant therapy. An INR of 2.0-3.0 is suggested for deep vein thrombosis/pulmonary embolism. Specimen Performing Laboratory Blood [facility] DEPARTMENT OF PATHOLOGY AND [facility] [address] [place] [address] [place] [address] * ECG 12 lead (07/24/2017 1:42 PM) Component Value Ref Range Ventricular rate 102 Atrial rate 102 MS interval 162 QRSD interval 80 QT interval 352 QTC interval 458 P axis 1 42 QRS axis 1 18 T wave axis 40 EKG impression Sinus tachycardia-Otherwise normal ECG-In automated comparison with ECG of 26-MAR-2017 13:08,-No significant change was found-Electronically Signed By Tala Sherman MD ([id number]), assignment editor Janice Severino ([id number]) on 2017 3:32:53 PM Specimen Performing Laboratory [facility] [address] [place] [address] * CT Stroke Brain Wo Contrast (07/24/2017 1:40 PM) Specimen Performing Laboratory [facility] [address] [place] [address] Narrative EXAMINATION:CT STROKE BRAIN WO CONTRAST CLINICAL [...] and he verbalized understanding of the report. [facility]-[id number] Procedure Note Hm Interface, Radiology Results Incoming [...] and he verbalized understanding of the report. [facility]-[id number] after 04/12/2017 Insurance Payer Benefit Subscriber ID Type Phone Address Plan / Group [facility] xxxxxxxxxxx Home: [facility] [place] [place] [id number]
[2018-04-13 08:03] LABS: CREATINE KINASE MB 0.4 ng/mL (0-5.0)
[2018-04-13] MEDS ORDERED: DEXTROSE 50% SYRINGE 50 ML IV PRN ×2 (08:30→16:15)
[2018-04-13 08:39] LABS: BASOPHILS % 0.4 % (0.0-1.0); EOSINOPHILS # (AUTO) 0.1 (0.0-0.4); EOSINOPHILS % 1.6 % (0.0-6.0); HEMOGLOBIN 8.3 g/dL (12.0-16.0); LYMPHOCYTES # (AUTO) 0.9 (1.0-3.2); LYMPHOCYTES % 17.2 % (18.0-39.1); MEAN CORPUSCULAR HEMOGLOBIN 19.1 pg (28-32); MEAN CORPUSCULAR HGB CONC 28.6 g/dL (31-35); MEAN CORPUSCULAR VOLUME 66.8 fL (81-99); MONOCYTES # (AUTO) 0.3 (0.2-0.8); MONOCYTES % 6.4 % (4.4-11.3); NEUTROPHILS # (AUTO) 3.8 (2.1-6.9); PLATELET COUNT 155 x10e3/uL (140-360); RED BLOOD COUNT 4.34 x10e6/uL (3.6-5.1); RED CELL DISTRIBUTION WIDTH 27.8 % (11.7-14.4)
[2018-04-13 08:48] LABS: ALANINE AMINOTRANSFERASE 20 IU/L (0-55); ALBUMIN/GLOBULIN RATIO 0.9 (0.8-2.0); ALKALINE PHOSPHATASE 108 IU/L (40-150); BLOOD UREA NITROGEN 14 mg/dL (7-26); BUN/CREATININE RATIO 15 (6-25); CALCIUM 8.8 mg/dL (8.4-10.2); CARBON DIOXIDE 22 mmol/L (22-29); CHLORIDE 108 mmol/L (98-107); CREATININE, SERUM 0.92 mg/dL (0.57-1.11); EST GLOMERULAR FILTRATION RATE > 60 ML/MIN (60-); GLUCOSE 241 mg/dL (74-118); MAGNESIUM 1.6 MG/DL (1.3-2.1); SODIUM 140 mmol/L (136-145)
[2018-04-13 09:10] LABS: FREE T4 (FREE THYROXINE) 1.02 ng/dL (0.9-1.8); THYROID STIMULATING HORMONE 1.892 uIU/mL (0.350-4.940)
[2018-04-13 09:12] LABS: B-TYPE NATRIURETIC PEPTIDE2 123.5 pg/mL (0-100)
[2018-04-13 10:02] LABS: ANISOCYTOSIS MODERATE; HYPOCHROMASIA SLIGHT; LYMPHOCYTES % (MANUAL) 16 % (19-48); MONOCYTES % (MANUAL) 3 % (3.4-9.0); NEUTROPHILS % (MANUAL) 81 % (40-74); PLATELET ESTIMATE ADEQUATE; PLATELET MORPHOLOGY COMMENT NORMAL; RBC MORPHOLOGY COMMENT ABNORMAL
[2018-04-13] MEDS ORDERED: POTASSIUM CHLORIDE 20 MEQ TAB CR PO STA (10:35)
[2018-04-13] MEDS ORDERED: INSULIN REGULAR, HUMAN 100 UNIT/1 ML 3ML VIAL SQ SCH (11:30)
[2018-04-13] MEDS ORDERED: LANTUS 3ML100 UNITS/ (12:21)
[2018-04-13] MEDS ORDERED: METOPROLOL SUCC50 MG PO (12:25)
[2018-04-13] MEDS ORDERED: TRAZODONE HCL50 MG PO (12:25)
[2018-04-13] MEDS ORDERED: LISINOPRIL10 MG PO (12:25)
[2018-04-13] MEDS ORDERED: PRAVASTATIN SOD10 MG (12:25)
[2018-04-13] MEDS ORDERED: HUMALOG100 UNIT/1 (12:25)
[2018-04-13] MEDS ORDERED: AMLODIPINE BESYL5 MG PO (12:25)
[2018-04-13] MEDS: INSULIN LISPRO 100 UNIT/1 ML 3ML VIAL SQ SCH ×2 (16:30→21:27)
[2018-04-13] MEDS ORDERED: ONDANSETRON HCL 4 MG ORAL DISINTEGRATING TAB SL PRN (16:30)
[2018-04-13 17:07] LABS: CREATINE KINASE 10 IU/L (29-168)
[2018-04-13] MEDS ORDERED: TRAZODONE HCL 50 MG TAB PO SCH (18:00)
[2018-04-13] MEDS: PRAVASTATIN 20 MG TAB PO SCH (21:26)
[2018-04-13] MEDS: INSULIN DETEMIR 100 UNIT/ML PEN SQ SCH (21:27)
[2018-04-14] VITALS (9 sets, daily range): BP systolic 135–187; BP diastolic 63–82
[2018-04-14 06:42] LABS: BASOPHILS % 0.6 % (0.0-1.0); EOSINOPHILS % 0.6 % (0.0-6.0); HEMATOCRIT 31.5 % (34.2-44.1); LYMPHOCYTES % 20.3 % (18.0-39.1); MEAN CORPUSCULAR HEMOGLOBIN 19.2 pg (28-32); MEAN CORPUSCULAR HGB CONC 28.6 g/dL (31-35); MEAN CORPUSCULAR VOLUME 67.2 fL (81-99); MONOCYTES # (AUTO) 0.4 (0.2-0.8); MONOCYTES % 7.4 % (4.4-11.3); NEUTROPHILS # (AUTO) 3.4 (2.1-6.9); NEUTROPHILS % 70.7 % (38.7-80.0); PLATELET COUNT 140 x10e3/uL (140-360); RED BLOOD COUNT 4.69 x10e6/uL (3.6-5.1); RED CELL DISTRIBUTION WIDTH 28.4 % (11.7-14.4)
[2018-04-14 07:02] LABS: ALANINE AMINOTRANSFERASE 17 IU/L (0-55); ALBUMIN 3.1 g/dL (3.5-5.0); ALBUMIN/GLOBULIN RATIO 0.8 (0.8-2.0); ALKALINE PHOSPHATASE 109 IU/L (40-150); ANION GAP 13.5 mmol/L (8-16); BLOOD UREA NITROGEN 14 mg/dL (7-26); BUN/CREATININE RATIO 17 (6-25); CALCIUM 9.1 mg/dL (8.4-10.2); CARBON DIOXIDE 20 mmol/L (22-29); CHLORIDE 108 mmol/L (98-107); CREATININE, SERUM 0.82 mg/dL (0.57-1.11); EST GLOMERULAR FILTRATION RATE > 60 ML/MIN (60-); GLUCOSE 141 mg/dL (74-118); POTASSIUM 3.5 mmol/L (3.5-5.1); SODIUM 138 mmol/L (136-145)
[2018-04-14 07:16] LABS: FERRITIN 78.65 ng/mL (4.63-204.00)
[2018-04-14] MEDS: INSULIN LISPRO 100 UNIT/1 ML 3ML VIAL SQ SCH ×4 (07:30→20:57)
[2018-04-14 07:55] LABS: FOLATE 15.2 ng/mL (7.0-15.4)
[2018-04-14 08:17] LABS: RBC MORPHOLOGY COMMENT NORMAL
[2018-04-14 08:18] LABS: ANISOCYTOSIS SLIG; ELLIPTOCYTE, RBC SLIGHT; HYPOCHROMASIA SLIG; PLATELET ESTIMATE SLIGHTLY DECREASED; PLATELET MORPHOLOGY COMMENT FEW GIANT; POIKILOCYTOSIS SLIGHT
[2018-04-14] MEDS ORDERED: IOPAMIDOL 370 MG/ML 200 ML INFUS..BTL INJ ONE (08:45)
[2018-04-14] MEDS ORDERED: SODIUM CHLORIDE 0.9% 50ML 50 ML ONE (08:45)
[2018-04-14] MEDS: AMLODIPINE BESYLATE 5 MG TAB PO SCH ×2 (09:00→09:55)
[2018-04-14] MEDS: LISINOPRIL 10 MG TAB PO SCH ×2 (09:00→09:55)
[2018-04-14] MEDS: METOPROLOL SUCCINATE 50 MG TAB XL PO SCH ×2 (09:00→09:56)
--- NOTE | 2018-04-14 09:33 | Diagnostic Imaging Report ---
PROCEDURE:CT CHEST WITH CONTRAST COMPARISON:None. INDICATIONS:History of lung cancer. TECHNIQUE: Routine protocol Volumetric CT chest after administration of 100 mL Isovue-370 intravenous contrast. Multiplanar reformatted images. DLP: 448.63 FINDINGS: Lungs: 2.5 x 2 x 5.2 cm right apical mass with adjacent intralobular septal thickening and bronchial wall thickening (for example, image 25, series 3). Associated right upper lobe volume loss with an architectural distortion. Bibasilar groundglass opacity with intra-and interlobular septal thickening.. Pulmonary nodules: 0.3 cm, noncalcified lingula (image 55, series 3). Pleura: No effusions. Airways: Patent Lymph nodes: Subcentimeter mediastinal. 1 cm short axis right infrahilar (image 50, series 2). 0.6 cm right apical intrafissural node (image 64, series 401). Pulmonary arteries: Normal central caliber. Prominent pulmonary arteries in the periphery, most notably at the lung bases. Thoracic aorta and great vessels: Normal caliber. Mild great vessel tortuosity and atherosclerosis. Left subclavian beverley catheter terminating in the low SVC. Heart and pericardium: Four-chamber cardiomegaly. No pericardial effusion. Subdiaphragmatic organs: 2.3 cm liver splenic cyst. Enlarged spleen, with a span exceeding 13 cm. Skeleton: Intact. Ill-defined sclerosis in the second and third ribs adjacent to the mass with trace periosteal reaction. (See image 65, series 401. Soft tissues: Normal. CONCLUSION: 1. 2.5 x 2 x 5.2 cm right apical lung mass consistent with reported history of lung cancer. 2. 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 Right infrahilar lymphadenopathy concerning for local note metastasis. 3. Right upper lobe architectural distortion and skeletal remodeling suggesting sequela of treatment. 4. Incompletely imaged splenomegaly. 5. Indeterminate 0.3 cm lingula nodule. 6. Cardiomegaly with mild pulmonary congestion and interstitial edema. 7. Comparison with prior studies would be very beneficial in this patient with known right upper lobe malignancy and posttreatment changes. Dictated by: En Souza M.D. on 04/14/2018 at 9:35 Electronically approved by: En Souza M.D. on 04/14/2018 at 9:35
[2018-04-14] MEDS: ACETAMINOPHEN 325 MG TAB PO PRN (10:08)
[2018-04-14 10:42] LABS: BILIRUBIN,URINE NEGATIVE (NEGATIVE); CLARITY,URINE SL CLOUDY (CLEAR); COLOR,URINE YELLOW (YELLOW); KETONES,URINE NEGATIVE (NEGATIVE); LEUKOCYTE ESTERASE ,URINE NEGATIVE (NEGATIVE); NITRITE,URINE NEGATIVE (NEGATIVE); PROTEIN,URINE DIPSTICK 3+ (NEGATIVE); URINE UROBILINOGEN 0.2 mg/dL (0.2 - 1)
[2018-04-14 10:54] LABS: EPITHELIAL CELLS,URINE RARE /LPF; RBC,URINE 0-5 /HPF (0-5); WBC,URINE (MAN) 0-5 /HPF (0-5)
[2018-04-14] MEDS ORDERED: ACETAMINOPHEN 1000 MG/100 ML IV STA (12:08)
[2018-04-14] MEDS: VANCOMYCIN 1GM/NS 250 ML 250 ML IV SCH (12:58)
[2018-04-14] MEDS ORDERED: CEFEPIME HCL 1 GM VIAL IV SCH (14:00)
[2018-04-14] MEDS: D5.45%NS/KCL 20MEQ 1,000 ML IV SCH (14:40)
--- NOTE | 2018-04-14 15:04 | Diagnostic Imaging Report ---
History: Headaches, dizziness Comparison studies: None Technique: 3-D [id number] intracranial. Contrast: None Findings: Internal carotid arteries, MCAs and ACAs: No flow abnormalities. Vertebral arteries: No flow abnormalities in the visualized intracranial segments. Basilar artery: No flow abnormalities. Posterior cerebral arteries: No flow abnormalities. Anatomical variants: Acom: Visualized. Pcoms: Visualized bilaterally. Vertebral arteries: Dominant left. IMPRESSION: No abnormalities . Signed by: DR Kyle Woodson M.D. on 04/14/2018 3:00 PM
--- NOTE | 2018-04-14 16:34 | Consultation ---
DATE OF CONSULTATION: INFECTIOUS DISEASE CONSULTATION REASON FOR CONSULTATION: Fever, altered mental status. HISTORY OF PRESENT ILLNESS: This is a patient who is a 67-year-old female, history of dementia. According to her daughter, the patient was in good health until a few days ago when she started to have some nausea and vomiting. Then she started to get confused. She brought her here, where she was admitted. The patient was noted to be febrile and started on vancomycin and cefepime. Infectious Disease was consulted. The patient is totally confused at the present time. No other information could be obtained. PAST MEDICAL HISTORY: Dementia. PAST SURGICAL HISTORY: Not available. REVIEW OF SYSTEMS: Could not be obtained. PHYSICAL EXAMINATION: GENERAL: She is alert, confused, does not seem to be in acute distress. VITALS: Stable, currently afebrile. HEENT: She does not appear icteric. NECK: Supple. No JVD, no lymphadenopathy, no thyromegaly. CHEST: Clear bilateral. HEART: S1/S2. No S3, no S4, no murmur. ABDOMEN: Soft. Bowel sounds present. No tenderness. EXTREMITIES: No edema. Her laboratory data reviewed. Chest x-ray was negative. White count is 4.7, hemoglobin 9.0. Her sodium was 138, potassium 3.5. Glucose 141. IMPRESSION: Altered mental status and fever. Concerned about meningeal encephalitis. Will start the patient on acyclovir, vancomycin, ampicillin. Add Rocephin. Will obtain spinal fluid for cell count and diff, protein, glucose, C\T\S, bacterial antigen, HSV PCR. Hold 1 fluid for further orders. Will follow. Discussed with the daughter. She is agreeable with the plan. Will follow. Job#: [id number] DAKOTA
[2018-04-14] MEDS: AMPICILLIN SOD 2 GM/NS 100ML 2 G in AMPICILLIN SOD 2 GM/NS 100ML 100 ML IV SCH ×2 (17:22→23:28)
[2018-04-14] MEDS: CEFTRIAXONE SOD 1 GM VIAL IV SCH (17:22)
[2018-04-14] MEDS: ACETAMINOPHEN 325 MG SUPP PR PRN (20:33)
[2018-04-14] MEDS: INSULIN DETEMIR 100 UNIT/ML PEN SQ SCH (20:57)
[2018-04-14] MEDS: ACYCLOVIR SODIUM 750 MG in SODIUM CHLORIDE 0.9% 250ML 250 ML IV SCH (21:17)
[2018-04-14] MEDS ORDERED: ACYCLOVIR SODIUM INJ 500 MG in SODIUM CHLORIDE 0.9% 100 ML 100 ML IV SCH (22:00)
[2018-04-14] MEDS: PRAVASTATIN 20 MG TAB PO SCH (22:45)
[2018-04-15] MEDS: VANCOMYCIN 1GM/NS 250 ML 250 ML IV SCH ×2 (01:36→18:26)
[2018-04-15] MEDS: CEFTRIAXONE SOD 1 GM VIAL IV SCH ×2 (03:49→16:13)
[2018-04-15 04:00] VITALS: BP 147/72
[2018-04-15] MEDS: AMPICILLIN SOD 2 GM/NS 100ML 2 G in AMPICILLIN SOD 2 GM/NS 100ML 100 ML IV SCH ×3 (05:19→20:10)
[2018-04-15] MEDS: ACETAMINOPHEN 325 MG SUPP PR PRN (05:35)
[2018-04-15] MEDS: ACYCLOVIR SODIUM 750 MG in SODIUM CHLORIDE 0.9% 250ML 250 ML IV SCH ×3 (05:43→21:55)
[2018-04-15 06:15] LABS: BASOPHILS % 0.5 % (0.0-1.0); EOSINOPHILS # (AUTO) 0.1 (0.0-0.4); EOSINOPHILS % 2.3 % (0.0-6.0); HEMATOCRIT 24.7 % (34.2-44.1); HEMOGLOBIN 7.2 g/dL (12.0-16.0); LYMPHOCYTES # (AUTO) 1.4 (1.0-3.2); LYMPHOCYTES % 32.3 % (18.0-39.1); MEAN CORPUSCULAR HEMOGLOBIN 19.4 pg (28-32); MEAN CORPUSCULAR HGB CONC 29.1 g/dL (31-35); MEAN CORPUSCULAR VOLUME 66.4 fL (81-99); MONOCYTES # (AUTO) 0.3 (0.2-0.8); MONOCYTES % 7.4 % (4.4-11.3); NEUTROPHILS # (AUTO) 2.5 (2.1-6.9); PLATELET COUNT 112 x10e3/uL (140-360); RED BLOOD COUNT 3.72 x10e6/uL (3.6-5.1)
[2018-04-15 06:30] LABS: ANION GAP 13.3 mmol/L (8-16); BLOOD UREA NITROGEN 13 mg/dL (7-26); BUN/CREATININE RATIO 16 (6-25); CALCIUM 8.6 mg/dL (8.4-10.2); CARBON DIOXIDE 20 mmol/L (22-29); CHLORIDE 108 mmol/L (98-107); CREATININE, SERUM 0.79 mg/dL (0.57-1.11); EST GLOMERULAR FILTRATION RATE > 60 ML/MIN (60-); GLUCOSE 135 mg/dL (74-118); MAGNESIUM 1.5 MG/DL (1.3-2.1); POTASSIUM 3.3 mmol/L (3.5-5.1); SODIUM 138 mmol/L (136-145)
[2018-04-15] MEDS ORDERED: SODIUM CHLORIDE 0.9% 250ML 250 ML IV ONE (06:45)
[2018-04-15] MEDS: INSULIN LISPRO 100 UNIT/1 ML 3ML VIAL SQ SCH ×4 (07:30→21:18)
[2018-04-15 08:23] LABS: EOSINOPHILS % (MANUAL) 1 % (0-7); LYMPHOCYTES % (MANUAL) 27 % (19-48); MONOCYTES % (MANUAL) 8 % (3.4-9.0); NEUTROPHILS % (MANUAL) 61 % (40-74)
[2018-04-15 08:24] VITALS: BP 130/55
[2018-04-15 08:24] LABS: ANISOCYTOSIS MARKED; HYPOCHROMASIA MODERATE; MICROCYTOSIS MARKED; OVALOCYTES FEW; PLATELET ESTIMATE SLIGHTLY DECREASED; PLATELET MORPHOLOGY COMMENT NORMAL; RBC MORPHOLOGY COMMENT ABNORMAL
[2018-04-15 08:25] LABS: TEAR DROP CELLS FEW
[2018-04-15 09:54] LABS: HEMATOCRIT 25.3 % (34.2-44.1); HEMOGLOBIN 7.2 g/dL (12.0-16.0)
[2018-04-15] MEDS: METOPROLOL SUCCINATE 50 MG TAB XL PO SCH (10:00)
[2018-04-15] MEDS: AMLODIPINE BESYLATE 5 MG TAB PO SCH (10:00)
[2018-04-15] MEDS: LISINOPRIL 10 MG TAB PO SCH (10:00)
[2018-04-15] MEDS ORDERED: POTASSIUM CHLORIDE 20MEQ/100ML 100 ML IV ONE (10:15)
[2018-04-15] MEDS ORDERED: BISACODYL 5 MG TAB EC PO NR (10:30)
[2018-04-15] MEDS: CYANOCOBALAMIN 1,000 MCG TAB PO SCH (11:21)
[2018-04-15] MEDS: D5.45%NS/KCL 20MEQ 1,000 ML IV SCH (11:21)
[2018-04-15 11:57] VITALS: BP 142/63
[2018-04-15 12:36] VITALS: BP 142/63
[2018-04-15 15:51] VITALS: BP 158/68
--- NOTE | 2018-04-15 16:56 | Consultation ---
DATE OF CONSULTATION: NEUROLOGY CONSULTATION HISTORY OF PRESENT ILLNESS: Ms. Wu is a 67-year-old, oxwhu-hhye-jwrvivue woman with past medical history significant for diabetes mellitus and a prior stroke with unknown residual deficits admitted to [facility] on April 13, 2018, after presenting to the emergency center following a syncopal event. On the evening of April 12, 2018, the patient was walking through her home when she abruptly lost consciousness. Per Ms. Wu, there was no lightheadedness, no vertigo, no chest pain or tightness, no palpitations, no shortness of breath, no epigastric rising sensation or other unusual sensation prior to losing consciousness. The duration of the patient's loss of consciousness is unknown. Ms. Wu does report vomiting either immediately before losing consciousness or immediately after regaining consciousness. When the patient regained consciousness, she was "very confused," and tired. Ms. Wu was found by her daughter lying on the floor, confused. Her daughter called [id number] and Ms. Wu was transported to the emergency center at [facility] for further evaluation and treatment. Upon arrival in the emergency center, the patient was afebrile with a blood pressure of 136/64 mmHg and a pulse of 69 beats per minute. Documentation of the patient's general physical and neurological examinations is not available for review at this time. A CT of the brain without contrast was performed while the patient was in the emergency center. On my review, there is no evidence of recent large territorial ischemia, hemorrhage, mass or mass effect. Prior lacunar infarcts in the caudate nuclei and left thalamus are observed. Ms. Wu was admitted to the hospital for further evaluation and treatment of her syncopal event. While in the hospital, the patient developed a fever and worsening confusion. Dr. Sen Dubois with Infectious Disease was consulted and was concerned for meningoencephalitis. The patient was placed on different antibiotic and antiviral medications with the plan being to have a lumbar puncture performed by interventional radiology later the same day. However, the procedure could not be done. Therefore, a neurology consultation was placed for evaluation of the patient. REVIEW OF SYSTEMS: Fever, vomiting, low back pain, loss of consciousness. Otherwise, the 12-point review of systems is negative. 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 PAST SURGICAL HISTORY: None. PAST HOSPITALIZATIONS: Stroke and childbirth once. FAMILY HISTORY: The patient's paternal and maternal grandparents are . Their medical histories are unknown. The patient's father and mother are . Their medical histories are unknown. Ms. Wu is an only child. She has 1 daughter who is alive and healthy. SOCIAL HISTORY: Ms. Wu is single. She is a high school graduate. Patient is currently retired, but was in the [employer] for approximately 30 years prior to jail. The patient does report a history of tobacco use. She quit smoking cigarettes several years ago. Ms. Wu does not report current or prior alcohol or recreational drug use. HOME MEDICATIONS 1. Norvasc 5 mg by mouth daily. 2. Lantus 24 units subcutaneously at bedtime. 3. Humalog 4 units subcutaneously before meals. 4. Lisinopril 10 mg by mouth daily. 5. Metoprolol 50 mg by mouth daily. 6. Pravastatin 10 mg by mouth at bedtime daily. 7. Trazodone 100 mg by mouth at bedtime daily as needed for insomnia. ALLERGIES: CODEINE, LORAZEPAM. NO KNOWN FOOD ALLERGIES. NO KNOWN ALLERGIES TO LATEX. NO KNOWN ALLERGIES TO IODINE OR OTHER CONTRAST MATERIALS. PHYSICAL EXAMINATION VITAL SIGNS: Height 63 inches, weight 184 pounds, BMI 32.6 kg per meter squared. Blood pressure 142/63 mmHg, pulse 90 beats per minute, respiratory rate 17 breaths per minute, oxygen saturation 96% on room air. GENERAL: Patient is awake and alert, does not appear distressed. HEENT: Normocephalic, atraumatic. Pupils are equal, round and reactive to light. Moist mucous membranes. NECK: Supple. No appreciable thyromegaly. No appreciable carotid bruits. CARDIOVASCULAR: S1, S2, regular rate and rhythm. No murmurs, rubs, or gallops. RESPIRATORY: Clear to auscultation bilaterally. No wheezes, rhonchi or rales. EXTREMITIES: The skin is warm and dry. No clubbing, cyanosis or edema. The posterior tibial and dorsalis pedis pulses are 1+ and symmetric. SKIN: Ecchymoses over the right forearm. NEUROLOGIC EXAMINATION MEMORY/ATTENTION: The patient is awake and alert. Oriented to person, place (hospital, city, state), not time, and situation. CRANIAL NERVES: Cranial nerve I: Not tested. Cranial nerves II, III, IV, and : Pupils are equal and round, react briskly to light (from 4 mm to 2 mm). Extraocular movements are intact. No nystagmus. Cranial nerve V: Sensation to light touch and pinprick is intact in the bilateral V1 through V3 distributions. Strength of the temporalis and masseter muscles is within normal limits. Cranial nerve VII: The face is symmetric as are all facial movements. Strength is within normal limits. Cranial nerve VIII: Hearing is intact to finger rub bilaterally. Cranial nerves IX and X: The soft palate elevates equally and symmetrically. Cranial nerve XI: Normal strength of the bilateral sternocleidomastoid and trapezius muscles. Cranial nerve XII: The tongue protrudes midline and moves symmetrically from side to side. STRENGTH: Bulk is normal. Patient is able to maintain both arms against gravity for more than 10 seconds each without drift. The patient is able to maintain both legs against gravity for more than 5 seconds each without drift. Tone is normal. DTRs: Deep tendon reflexes are 1+ and symmetric at the triceps, biceps, brachioradialis, and patellas. Deep tendon reflexes are absent and symmetric at the Achilles. Plantar responses are flexor bilaterally. SENSATION: Sensation is intact to light touch and pinprick in both arms and legs. CEREBELLAR: Jfnxsp-ubex-ehhpti and heel-daugherty movements are slowed but without dysmetria or other impairment. GAIT: Deferred. SPEECH: Spontaneous speech is normal without appreciable dysarthria or aphasia. Repetition is intact. INVOLUNTARY MOVEMENTS: None. PRONATOR DRIFT: As per motor exam. LABORATORY DATA: Sodium 138, potassium 3.3, chloride 108, carbon dioxide 20, anion gap 13.3, BUN 13, creatinine 0.79, estimated GFR greater than 60. MNS-os-jvsouoorxd ratio 16. Glucose 135, calcium 8.6, magnesium 1.5. Creatinine kinase 19, 11, 10. CK-MB 0.60, 0.40, 0.20. Troponin I less than 0.001, 0.004, less than 0.001. B-natriuretic peptide 203.2 and 123.5. TSH 1.82, free T4 1.02, free T3 2.7. Vitamin B12 206. Folate 15.2, iron 63, TIBC 372, percent saturation 17, transferrin 266, ferritin 78.65. CBC with differential and platelets reveals a white blood cell count of 4.43 with a normal differential. Hemoglobin and hematocrit are 7.2 and 24.7, respectively. The platelet count is 112. From April 12, 2018, PT 13.7, INR 1.14, PTT 29.7. From April 14, 2018, a urinalysis revealed 3+ protein and trace blood. DIAGNOSTIC STUDIES 1. Chest x-ray, 04/12/2018: No acute thoracic abnormality. Right apical soft-tissue opacity compatible with mass versus scar. Correlate for history of lung neoplasm. 2. CT of the brain without contrast 04/12/2018: On my review, there is no evidence of recent large territorial ischemia, hemorrhage, mass, or mass effect. Chronic lacunar infarcts in the caudate nuclei and left thalamus are seen. There is moderate diffuse cerebral atrophy, more than expected for the patient's age. There is mild to moderate chronic small vessel ischemic disease. 3. MRA brain, 04/14/2018: No abnormalities. 4. Chest CT, 04/14/2018: 1) A 2.5 x 2 x 5.2 cm right apical lung mass consistent with reported history of lung cancer. 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 3) Right infrahilar lymphadenopathy concerning for local node metastasis. 4) Right upper lobe architectural distortion and skeletal remodeling suggesting sequelae of treatment. 5) Incompletely imaged splenomegaly. 6) Indeterminate 0.3-cm lingula nodule. 7) Cardiomegaly with mild pulmonary congestion and interstitial edema. 8) Comparison with prior studies would be very beneficial in this patient with known right upper lobe malignancy and post-treatment changes. ASSESSMENT AND PLAN: Ms. Wu is a 67-year-old, ltpuu-wcvw-rmbithaa woman with past medical history as detailed admitted to [facility] with fevers and confusion following a syncopal event. At present, her neurological examination is significant for disorientation to time. However, from documentation in the patient's medical chart, it appears there is baseline cognitive dysfunction following radiation treatment for lung cancer several years ago. Otherwise, the patient's neurological examination is nonfocal. There is no evidence of meningismus on general physical examination. The patient's laboratory data and other diagnostic studies have been reviewed and are documented above. As stated in the history of present illness, Dr. Sen Dubois from infectious disease is concerned the patient's fevers and encephalopathy are due to meningoencephalitis. At his request, a lumbar puncture was attempted. Unfortunately, no cerebrospinal fluid was obtained despite two attempts at the lumbar puncture. Dr. Dubois was made aware of this fact. He plans to continue treatment with the patient's current antibiotic and antiviral medications. The syncopal event which led to Ms. Wu's presentation at [facility] is suspicious for a seizure. RECOMMENDATIONS 1. MRI of brain without contrast. 2. Routine EEG. 3. Defer treatment of the remaining medical comorbidities to the primary and other services following Ms. Wu. Thank you for this consultation. I will continue to follow this patient while she remains in hospital. Time spent was 90 minutes. Addendum: Procedure Note: Informed consent was obtained from the patient's daughter who holds her Medical Power of Motors Assembler. The procedure, its benefits, and potential adverse effects were discussed with Ms. Wu. The patient was placed in a left lateral decubitus position. She was prepared and draped in a sterile manner. Local anesthetic with two CCs of 1% lidocaine without epinephrine was administered. A 22 gauge needle was introduced between in the L4-L5 innerspace. Unfortunately, no cerebrospinal fluid was obtained despite two attempts. Job#: [id number] SHYANN
[2018-04-15 17:43] VITALS: BP 164/71
[2018-04-15] MEDS: DOCUSATE SODIUM 100 MG CAP PO SCH (17:45)
[2018-04-15] MEDS: INSULIN DETEMIR 100 UNIT/ML PEN SQ SCH (21:18)
[2018-04-15] MEDS: PRAVASTATIN 20 MG TAB PO SCH (21:25)
--- NOTE | 2018-04-15 21:36 | Diagnostic Imaging Report ---
History: SEIZURE Comparison studies: None Technique: Axial images were obtained from the skull base to the vertex. Coronal and sagittal reconstructions obtained from the axial data. Findings: Scalp/skull: No abnormalities. No fractures, blastic or lytic lesions. Extra-axial spaces: No masses. No fluid collections. Brain sulci: Moderately prominent. Ventricles: Moderate compensatory dilatation. No hydrocephalus. Parenchyma: Severe white matter microvascular ischemic changes. Left caudate head chronic lacunar infarct. Left thalamus chronic lacunar infarct. No masses, hemorrhage, or acute infarct. Sellar/suprasellar region: No abnormalities Craniocervical junction: Patent foramen magnum. No Chiari one malformation. Mild to moderate bilateral mastoid air cell fluid. IMPRESSION: 1. No acute abnormalities. 2. Severe microvascular ischemic changes. Signed by: DR Kyle Woodson M.D. on 04/15/2018 9:33 PM
[2018-04-15] MEDS ORDERED: SODIUM CHLORIDE 0.9% 250ML 250 ML ONE (23:04)
[2018-04-16] VITALS (7 sets, daily range): BP systolic 143–182; BP diastolic 74–96
[2018-04-16] MEDS: HYDRALAZINE HCL 20 MG/ML VIAL IV PRN (01:36)
[2018-04-16] MEDS: AMPICILLIN SOD 2 GM/NS 100ML 2 G in AMPICILLIN SOD 2 GM/NS 100ML 100 ML IV SCH ×4 (02:37→21:08)
[2018-04-16] MEDS: D5.45%NS/KCL 20MEQ 1,000 ML IV SCH (07:28)
[2018-04-16] MEDS: VANCOMYCIN 1GM/NS 250 ML 250 ML IV SCH ×2 (07:28→17:15)
[2018-04-16] MEDS: CEFTRIAXONE SOD 1 GM VIAL IV SCH ×2 (07:28→17:03)
[2018-04-16] MEDS: INSULIN LISPRO 100 UNIT/1 ML 3ML VIAL SQ SCH ×4 (07:30→21:27)
[2018-04-16] MEDS: CYANOCOBALAMIN 1,000 MCG TAB PO SCH (09:08)
[2018-04-16] MEDS: METOPROLOL SUCCINATE 50 MG TAB XL PO SCH (09:08)
[2018-04-16] MEDS: AMLODIPINE BESYLATE 5 MG TAB PO SCH (09:08)
[2018-04-16] MEDS: LISINOPRIL 10 MG TAB PO SCH (09:08)
[2018-04-16] MEDS: DOCUSATE SODIUM 100 MG CAP PO SCH ×2 (09:08→17:04)
[2018-04-16 09:12] LABS: BASOPHILS % 0.6 % (0.0-1.0); EOSINOPHILS # (AUTO) 0.2 (0.0-0.4); EOSINOPHILS % 2.7 % (0.0-6.0); HEMATOCRIT 37.3 % (34.2-44.1); HEMOGLOBIN 11.2 g/dL (12.0-16.0); LYMPHOCYTES # (AUTO) 2.2 (1.0-3.2); LYMPHOCYTES % 33.8 % (18.0-39.1); MEAN CORPUSCULAR HEMOGLOBIN 20.8 pg (28-32); MEAN CORPUSCULAR VOLUME 69.3 fL (81-99); MONOCYTES # (AUTO) 0.3 (0.2-0.8); MONOCYTES % 5.2 % (4.4-11.3); NEUTROPHILS # (AUTO) 3.7 (2.1-6.9); NEUTROPHILS % 57.2 % (38.7-80.0); PLATELET COUNT 124 x10e3/uL (140-360); RED BLOOD COUNT 5.38 x10e6/uL (3.6-5.1); RED CELL DISTRIBUTION WIDTH 30.9 % (11.7-14.4)
[2018-04-16 09:29] LABS: ANION GAP 13.4 mmol/L (8-16); BLOOD UREA NITROGEN 9 mg/dL (7-26); BUN/CREATININE RATIO 13 (6-25); CALCIUM 9.3 mg/dL (8.4-10.2); CARBON DIOXIDE 20 mmol/L (22-29); CHLORIDE 106 mmol/L (98-107); CREATININE, SERUM 0.72 mg/dL (0.57-1.11); EST GLOMERULAR FILTRATION RATE > 60 ML/MIN (60-); GLUCOSE 159 mg/dL (74-118); MAGNESIUM 1.6 MG/DL (1.3-2.1); POTASSIUM 3.4 mmol/L (3.5-5.1); SODIUM 136 mmol/L (136-145)
[2018-04-16] MEDS: ACYCLOVIR SODIUM 750 MG in SODIUM CHLORIDE 0.9% 250ML 250 ML IV SCH ×3 (10:00→22:42)
--- NOTE | 2018-04-16 10:22 | Consultation ---
DATE OF CONSULTATION: April 16, 2018 REASON FOR CONSULTATION: History of lung cancer. She is a very pleasant 67-year-old female with a past medical history including diabetes, history of small and nonsmall cell lung cancer. She was diagnosed with small cell lung cancer and treated with chemoradiation. Later, she developed nonsmall cell lung cancer, squamous type, right apical area. Received only radiation. She is currently in the hospital with worsening confusion. The patient had CT of the brain without contrast. No evidence of any recent ischemia, hemorrhage or mass effect. She had CT of the chest, which shows right apical mass, 2 x 2 x 2 x 5 cm with surrounding lymphadenopathy. She is currently confused. Mainly history obtained from medical chart and from her oncologist, . She is also following with neurologist. She had a MRI of the brain reported normal. She felt fatigued, lethargic and tired. 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 PAST SURGICAL HISTORY: None. PAST HOSPITALIZATIONS: Stroke, child . FAMILY HISTORY: Reviewed and noncontributory. REVIEW OF SYSTEMS: A 12-point review as per HPI. Limited with mental condition. SOCIAL HISTORY: No current habits. ALLERGIES: SEE NURSING LIST. MEDICATIONS: Was reviewed. PHYSICAL EXAMINATION GENERAL: Alert, awake and not completely oriented. HEENT: Normocephalic and atraumatic. Sclerae pink. Conjunctivae clear. NECK: Supple. CHEST: Decreased breath sounds at the bases otherwise clear to auscultation. CARDIOVASCULAR: Regular rate and rhythm. ABDOMEN: Soft and nontender. EXTREMITIES: No edema. LABS AND IMAGING: Reviewed. ASSESSMENT AND PLAN: The patient with a history of multiple medical conditions. I am currently following for: 1. New lung mass: The patient had a new right apical lung mass. The patient had a history of small cell lung cancer and nonsmall cell lung cancer. No recent followup with oncologist. Last followup with 2014. Recommendations is the patient will need needle biopsy. Staking Engineer involved. The patient will benefit from bronchoscopy and biopsy. Other recommendations and treatment is tumor type. The case discussed with her primary oncologist. He agrees with the current plan of care. 2. Confusion: Possible differential includes neoplastic syndrome. Neurologist on the case. Other recommendations as per workup. The patient will benefit with a PET scan as an outpatient. 3. Diabetes: Will monitor blood glucose closely. Will continue to manage the patient. Job#: [id number] RI
[2018-04-16 12:39] LABS: BLAST CELLS % MANUAL 1; LYMPHOCYTES % (MANUAL) 32 % (19-48); MONOCYTES % (MANUAL) 3 % (3.4-9.0); NEUTROPHILS % (MANUAL) 61 % (40-74)
[2018-04-16 12:40] LABS: ELLIPTOCYTE, RBC SLIGHT; PLATELET MORPHOLOGY COMMENT FEW LARGE; POIKILOCYTOSIS SLIGHT; RBC MORPHOLOGY COMMENT ABNORMAL
[2018-04-16 12:41] LABS: ANISOCYTOSIS MODERATE; BURR CELLS SLIGHT; PLATELET ESTIMATE SLIGHTLY DECREASED
[2018-04-16] MEDS ORDERED: POTASSIUM CHLORIDE 20 MEQ TAB CR PO STA (14:42)
[2018-04-16] MEDS: HYDROCODONE/APAP 5MG-325MG TAB PO PRN (15:08)
--- NOTE | 2018-04-16 17:04 | Consultation ---
DATE OF CONSULTATION: PULMONARY CONSULTATION HISTORY OF PRESENT ILLNESS: A patient of Dr. Horacio Tipton, Dr. Guzman, Dr. Crarasco. A charming but unfortunate 67-year-old woman admitted after a syncopal episode. She has been confused and is a poor historian. She has a very poor memory. However, she has a history of small-cell lung cancer treated and presumably had cranial radiation. She subsequently had a hrh-lppoh-jkmm cancer which was treated with radiation. I spoke to the daughter. Apparently her cancer was diagnosed on mediastinoscopy. Transthoracic needle biopsy was not diagnostic, and apparently the patient is afraid to have this repeated. She is an ex-smoker, served in the for 30 years. In addition to syncope, she had nausea and vomiting. Encephalitis was suspected. An LP was attempted but apparently was unsuccessful. An MRI of the brain revealed no acute . Temperature 97.5, pulse 84, blood pressure 177/80. Home medications have included amlodipine, insulin, lisinopril, metoprolol, Pravachol and trazodone. PHYSICAL EXAMINATION HEAD: Appears somewhat cushingoid. LUNGS: Diminished breath sounds. HEART: Regular rhythm. ABDOMEN: Nontender. EXTREMITIES: Nonedematous. CT reveals a possible right upper lobe mass. There is suspicion of lymphangitic spread. There are no old films for comparison. This was discussed at length with Dr. Carrasco and the daughter. She will attempt to obtain patient's records on the [facility] portal and will defer bronchoscopy until at least those can be reviewed her films. Chest x-ray does reveal a right upper lobe mass-like lesion. Moderate lymphadenopathy was also noted. Plan is to review scan and consider bronchoscopy and transbronchial biopsy. There is moderate right infrahilar adenopathy. There are also chronic interstitial changes. Plan is to await at least old records and possibly CAT scan and then proceed with bronchoscopy and transbronchial biopsy. Thank you for this kind referral. Job#: [id number] EV
[2018-04-16] MEDS: IPRATROPIUM BROMIDE 0.02% 2.5 ML NEB NEB SCH (19:55)
[2018-04-16] MEDS: PRAVASTATIN 20 MG TAB PO SCH (21:27)
[2018-04-16] MEDS: INSULIN DETEMIR 100 UNIT/ML PEN SQ SCH (21:27)
[2018-04-17] MEDS: AMPICILLIN SOD 2 GM/NS 100ML 2 G in AMPICILLIN SOD 2 GM/NS 100ML 100 ML IV SCH (00:17)
[2018-04-17 00:32] VITALS: BP 137/75
[2018-04-17] MEDS: IPRATROPIUM BROMIDE 0.02% 2.5 ML NEB NEB SCH ×4 (02:10→20:12)
[2018-04-17 03:24] LABS: ABG HCO3 22 mmol/L (23-28); ABG PCO2 33 mmHg (41-51); ABG PH 7.43 (7.31-7.41); ABG PO2 80 mmHg (80-105)
[2018-04-17] MEDS: D5.45%NS/KCL 20MEQ 1,000 ML IV SCH (04:00)
[2018-04-17] MEDS: VANCOMYCIN 1GM/NS 250 ML 250 ML IV SCH ×2 (04:04→16:53)
[2018-04-17] MEDS: CEFTRIAXONE SOD 1 GM VIAL IV SCH ×2 (04:04→16:53)
[2018-04-17 05:50] VITALS: BP 167/77
[2018-04-17] MEDS: ACYCLOVIR SODIUM 750 MG in SODIUM CHLORIDE 0.9% 250ML 250 ML IV SCH ×3 (05:54→21:35)
[2018-04-17 06:23] LABS: BASOPHILS % 0.5 % (0.0-1.0); EOSINOPHILS # (AUTO) 0.1 (0.0-0.4); EOSINOPHILS % 3.4 % (0.0-6.0); HEMATOCRIT 31.4 % (34.2-44.1); HEMOGLOBIN 9.4 g/dL (12.0-16.0); LYMPHOCYTES # (AUTO) 1.4 (1.0-3.2); MEAN CORPUSCULAR HEMOGLOBIN 21.3 pg (28-32); MEAN CORPUSCULAR HGB CONC 29.9 g/dL (31-35); MONOCYTES # (AUTO) 0.3 (0.2-0.8); MONOCYTES % 6.1 % (4.4-11.3); NEUTROPHILS # (AUTO) 2.3 (2.1-6.9); NEUTROPHILS % 55.3 % (38.7-80.0); PLATELET COUNT 127 x10e3/uL (140-360); RED BLOOD COUNT 4.42 x10e6/uL (3.6-5.1); RED CELL DISTRIBUTION WIDTH 31.3 % (11.7-14.4)
[2018-04-17 06:37] LABS: ANION GAP 11.4 mmol/L (8-16); BLOOD UREA NITROGEN 11 mg/dL (7-26); BUN/CREATININE RATIO 15 (6-25); CALCIUM 8.5 mg/dL (8.4-10.2); CARBON DIOXIDE 19 mmol/L (22-29); CHLORIDE 111 mmol/L (98-107); CREATININE, SERUM 0.71 mg/dL (0.57-1.11); EST GLOMERULAR FILTRATION RATE > 60 ML/MIN (60-); GLUCOSE 107 mg/dL (74-118); MAGNESIUM 1.7 MG/DL (1.3-2.1); POTASSIUM 3.4 mmol/L (3.5-5.1); SODIUM 138 mmol/L (136-145)
[2018-04-17] MEDS: AMPICILLIN SOD 2 GM/NS 100ML 100 ML IV SCH ×3 (06:45→18:24)
[2018-04-17] MEDS: INSULIN LISPRO 100 UNIT/1 ML 3ML VIAL SQ SCH ×4 (07:30→21:17)
[2018-04-17 07:44] VITALS: BP 164/71
--- NOTE | 2018-04-17 08:58 | Progress Note ---
DATE: SUBJECTIVE: Patient seen and examined today. Patient appears comfortable. Clinical condition is improving. Denies any worsening headache. Her mentation also improved. PHYSICAL EXAMINATION: GENERAL: Alert, . HEENT: Normocephalic, atraumatic. Sclerae pale. Conjunctivae clear. NECK: Supple. ABDOMEN: Soft. EXTREMITIES: No edema. FIRE CONTROL SYSTEM INSTALLER: Intact. LABS: Reviewed. Hemoglobin improved. ASSESSMENT AND PLAN: Patient with history of a non-small cell lung cancer, currently in hospital with confusion. Workup showed right-sided apical lung mass with lymphadenopathy. Following target developer. Waiting for record from [facility] portal to decide further treatment. Patient might need bronchoscopy and transbronchial biopsy. Further recommendations as per workup. Anemia. Current hemoglobin improved after blood transfusion. Clinical condition is stable. RECOMMENDATIONS: Close observation. Job#: [id number]
[2018-04-17] MEDS: DOCUSATE SODIUM 100 MG CAP PO SCH ×2 (09:00→16:53)
[2018-04-17] MEDS: AMLODIPINE BESYLATE 5 MG TAB PO SCH (09:00)
[2018-04-17] MEDS: LISINOPRIL 10 MG TAB PO SCH (09:00)
[2018-04-17] MEDS: METOPROLOL SUCCINATE 50 MG TAB XL PO SCH (09:00)
[2018-04-17] MEDS: CYANOCOBALAMIN 1,000 MCG TAB PO SCH (09:00)
[2018-04-17] MEDS ORDERED: POTASSIUM CHLORIDE 20 MEQ TAB CR PO STA (13:07)
[2018-04-17] MEDS ORDERED: BISACODYL 5 MG TAB EC PO ONE (13:15)
[2018-04-17] MEDS ORDERED: POLYETHYLENE GLYCOL 3350 17 GM PACK PO PRN (13:15)
[2018-04-17] MEDS: HYDROCODONE/APAP 5MG-325MG TAB PO PRN (13:30)
[2018-04-17] MEDS: HYDRALAZINE HCL 20 MG/ML VIAL IV PRN (13:31)
[2018-04-17 15:55] VITALS: BP 146/66
[2018-04-17 20:45] VITALS: BP 141/65
[2018-04-17] MEDS: INSULIN DETEMIR 100 UNIT/ML PEN SQ SCH (21:00)
[2018-04-17] MEDS: PRAVASTATIN 20 MG TAB PO SCH (21:00)
[2018-04-17] MEDS: NIFEDIPINE CR 30 MG TAB PO SCH (21:00)
[2018-04-17] MEDS: TRAZODONE HCL 50 MG TAB PO PRN (22:00)
[2018-04-18] VITALS (7 sets, daily range): BP systolic 133–170; BP diastolic 61–78
[2018-04-18] MEDS: IPRATROPIUM BROMIDE 0.02% 2.5 ML NEB NEB SCH ×4 (03:25→19:56)
[2018-04-18] MEDS: CEFTRIAXONE SOD 1 GM VIAL IV SCH ×2 (04:00→15:50)
[2018-04-18] MEDS: VANCOMYCIN 1GM/NS 250 ML 250 ML IV SCH ×2 (04:21→16:00)
[2018-04-18] MEDS: AMPICILLIN SOD 2 GM/NS 100ML 100 ML IV SCH ×4 (05:22→18:40)
[2018-04-18] MEDS: ACYCLOVIR SODIUM 750 MG in SODIUM CHLORIDE 0.9% 250ML 250 ML IV SCH ×3 (06:00→22:00)
[2018-04-18 06:07] LABS: BASOPHILS % 0.5 % (0.0-1.0); EOSINOPHILS # (AUTO) 0.1 (0.0-0.4); EOSINOPHILS % 3.5 % (0.0-6.0); HEMATOCRIT 30.6 % (34.2-44.1); HEMOGLOBIN 8.9 g/dL (12.0-16.0); LYMPHOCYTES # (AUTO) 1.4 (1.0-3.2); LYMPHOCYTES % 34.9 % (18.0-39.1); MEAN CORPUSCULAR HEMOGLOBIN 20.5 pg (28-32); MEAN CORPUSCULAR HGB CONC 29.1 g/dL (31-35); MEAN CORPUSCULAR VOLUME 70.5 fL (81-99); MONOCYTES # (AUTO) 0.3 (0.2-0.8); MONOCYTES % 6.2 % (4.4-11.3); NEUTROPHILS # (AUTO) 2.2 (2.1-6.9); NEUTROPHILS % 54.4 % (38.7-80.0); PLATELET COUNT 124 x10e3/uL (140-360); RED BLOOD COUNT 4.34 x10e6/uL (3.6-5.1); RED CELL DISTRIBUTION WIDTH 31.4 % (11.7-14.4)
[2018-04-18 06:28] LABS: ANION GAP 10.2 mmol/L (8-16); BLOOD UREA NITROGEN 8 mg/dL (7-26); BUN/CREATININE RATIO 11 (6-25); CALCIUM 8.3 mg/dL (8.4-10.2); CARBON DIOXIDE 20 mmol/L (22-29); CHLORIDE 108 mmol/L (98-107); EST GLOMERULAR FILTRATION RATE > 60 ML/MIN (60-); GLUCOSE 87 mg/dL (74-118); MAGNESIUM 1.4 MG/DL (1.3-2.1); POTASSIUM 3.2 mmol/L (3.5-5.1); SODIUM 135 mmol/L (136-145)
[2018-04-18] MEDS: INSULIN LISPRO 100 UNIT/1 ML 3ML VIAL SQ SCH ×4 (07:30→21:00)
[2018-04-18] MEDS: DOCUSATE SODIUM 100 MG CAP PO SCH ×3 (09:00→16:08)
[2018-04-18] MEDS ORDERED: POTASSIUM CHLORIDE 20 MEQ TAB CR PO ONE (09:15)
[2018-04-18] MEDS: OYST-CAL-D 500MG TABLET PO SCH ×2 (09:24→17:04)
[2018-04-18] MEDS: CYANOCOBALAMIN 1,000 MCG TAB PO SCH (09:24)
[2018-04-18] MEDS: METOPROLOL SUCCINATE 50 MG TAB XL PO SCH (09:24)
[2018-04-18] MEDS: LISINOPRIL 10 MG TAB PO SCH (09:24)
[2018-04-18 10:24] LABS: ANISOCYTOSIS SLIGHT; EOSINOPHILS % (MANUAL) 4 % (0-7); LYMPHOCYTES % (MANUAL) 24 % (19-48); MONOCYTES % (MANUAL) 4 % (3.4-9.0); NEUTROPHILS % (MANUAL) 64 % (40-74)
[2018-04-18 10:25] LABS: MICROCYTOSIS SLIGHT; PLATELET ESTIMATE SLIGHTLY DECREASED; PLATELET MORPHOLOGY COMMENT NORMAL; RBC MORPHOLOGY COMMENT NORMAL
--- NOTE | 2018-04-18 15:28 | Progress Note ---
DATE: April 18, 2018 SUBJECTIVE: Ms. Wu is doing better today. No new complaints. REVIEW OF SYSTEMS: Otherwise unremarkable. She seems better than when I first met her, more alert. PHYSICAL EXAMINATION GENERAL: Alert, and responds to simple commands. VITAL SIGNS: Stable, currently afebrile. HEENT: Not icteric. NECK: Supple. CHEST: Clear bilaterally. COR: S1 and S2, no murmur. ABDOMEN: Soft. Bowel sounds present. No tenderness. EXTREMITIES: No edema. IMPRESSION: Presumptive encephalitis. We could not do an LP on this patient, to finish 14 days of Acyclovir. Continue PT and OT. Will follow. Job#: [id number]
--- NOTE | 2018-04-18 15:53 | Progress Note ---
DATE: Patient seen and examined today. She appears comfortable. No worsening anemia noted. Clinical condition is stable. PHYSICAL EXAMINATION GENERAL: Alert, awake, communicative. HEENT: Normocephalic and atraumatic. Sclerae are pink and conjunctivae clear. NECK: Supple. CHEST: Clear to auscultation. CARDIOVASCULAR: Regular rate and rhythm. ABDOMEN: Soft. EXTREMITIES: No edema. FORMING MACHINE UPKEEP MECHANIC: Moving all extremities. Alert and oriented. ASSESSMENT AND PLAN: Patient has history of small cell lung cancer and non-small cell lung cancer. She is currently following with converting technician. Suppose to get bronchoscopy and bronchoscopy-induced biopsy. She also has anemia. Hemoglobin is running between 7.2 and 10. Current hemoglobin trending downward. Workup showed iron deficiency anemia and also anemia of chronic disease. Will start the patient on iron infusion treatment. Will continue remaining care. Will follow the patient closely. Job#: [id number]
[2018-04-18] MEDS: IRON SUCROSE 100 MG in SODIUM CHLORIDE 0.9% 100 ML 100 ML IV SCH (18:12)
[2018-04-18] MEDS: PRAVASTATIN 20 MG TAB PO SCH (21:00)
[2018-04-18] MEDS: INSULIN DETEMIR 100 UNIT/ML PEN SQ SCH (21:00)
[2018-04-18] MEDS: NIFEDIPINE CR 30 MG TAB PO SCH (21:00)
[2018-04-18] MEDS: TRAZODONE HCL 50 MG TAB PO PRN (22:34)
[2018-04-19] VITALS: BP 162/77
[2018-04-19] MEDS: IPRATROPIUM BROMIDE 0.02% 2.5 ML NEB NEB SCH ×4 (02:40→19:22)
[2018-04-19] MEDS: CEFTRIAXONE SOD 1 GM VIAL IV SCH ×2 (03:44→16:19)
[2018-04-19 04:00] VITALS: BP 141/67
[2018-04-19] MEDS: VANCOMYCIN 1GM/NS 250 ML 250 ML IV SCH ×2 (05:00→16:19)
[2018-04-19] MEDS: AMPICILLIN SOD 2 GM/NS 100ML 100 ML IV SCH ×4 (05:04→18:30)
[2018-04-19] MEDS: ACYCLOVIR SODIUM 750 MG in SODIUM CHLORIDE 0.9% 250ML 250 ML IV SCH ×3 (05:32→21:01)
[2018-04-19 06:18] LABS: BASOPHILS % 0.5 % (0.0-1.0); EOSINOPHILS # (AUTO) 0.1 (0.0-0.4); EOSINOPHILS % 2.7 % (0.0-6.0); HEMATOCRIT 32.3 % (34.2-44.1); HEMOGLOBIN 9.5 g/dL (12.0-16.0); LYMPHOCYTES # (AUTO) 1.2 (1.0-3.2); LYMPHOCYTES % 29.5 % (18.0-39.1); MEAN CORPUSCULAR HEMOGLOBIN 20.8 pg (28-32); MEAN CORPUSCULAR HGB CONC 29.4 g/dL (31-35); MEAN CORPUSCULAR VOLUME 70.8 fL (81-99); MONOCYTES # (AUTO) 0.3 (0.2-0.8); MONOCYTES % 7.1 % (4.4-11.3); NEUTROPHILS # (AUTO) 2.5 (2.1-6.9); PLATELET COUNT 135 x10e3/uL (140-360); RED BLOOD COUNT 4.56 x10e6/uL (3.6-5.1); RED CELL DISTRIBUTION WIDTH 32.3 % (11.7-14.4)
[2018-04-19 06:30] LABS: ANION GAP 11.5 mmol/L (8-16); BLOOD UREA NITROGEN 7 mg/dL (7-26); BUN/CREATININE RATIO 9 (6-25); CALCIUM 8.8 mg/dL (8.4-10.2); CARBON DIOXIDE 21 mmol/L (22-29); CHLORIDE 108 mmol/L (98-107); CREATININE, SERUM 0.74 mg/dL (0.57-1.11); EST GLOMERULAR FILTRATION RATE > 60 ML/MIN (60-); GLUCOSE 112 mg/dL (74-118); MAGNESIUM 1.6 MG/DL (1.3-2.1); POTASSIUM 3.5 mmol/L (3.5-5.1); SODIUM 137 mmol/L (136-145)
[2018-04-19] MEDS: INSULIN LISPRO 100 UNIT/1 ML 3ML VIAL SQ SCH ×4 (07:30→21:14)
[2018-04-19 08:00] VITALS: BP 136/68
[2018-04-19] MEDS: CYANOCOBALAMIN 1,000 MCG TAB PO SCH (08:23)
[2018-04-19] MEDS: OYST-CAL-D 500MG TABLET PO SCH ×2 (08:23→16:20)
[2018-04-19] MEDS: LISINOPRIL 10 MG TAB PO SCH (08:24)
[2018-04-19] MEDS: METOPROLOL SUCCINATE 50 MG TAB XL PO SCH (08:24)
[2018-04-19] MEDS: DOCUSATE SODIUM 100 MG CAP PO SCH ×2 (08:25→16:20)
[2018-04-19 08:30] VITALS: BP 136/68
[2018-04-19 11:30] LABS: ANISOCYTOSIS SLIGHT; HYPOCHROMASIA SLIGHT; MICROCYTOSIS SLIGHT; PLATELET ESTIMATE ADEQUATE; PLATELET MORPHOLOGY COMMENT NORMAL; RBC MORPHOLOGY COMMENT NORMAL
[2018-04-19 12:00] VITALS: BP 168/82
--- NOTE | 2018-04-19 14:31 | Progress Note ---
DATE: SUBJECTIVE: Ms. Wu continued to be doing well, a little bit confused. No new complaints. REVIEW OF SYSTEMS: Nothing new. PHYSICAL EXAMINATION GENERAL: She is alert, very pleasant. VITAL SIGNS: Stable, afebrile. HEENT: She is not icteric. NECK: Supple. CHEST: Clear. COR: No murmur. ABDOMEN: Soft. Bowel sounds present. No tenderness. EXTREMITIES: No edema. SKIN: No rash. IMPRESSION: Encephalitis, doing better. PLAN: Continue with Acyclovir for 14 days. Recheck chem panel. She is also on ampicillin and ceftriaxone for the possibility of meningo-encephalitis. We could not do LP unfortunately, but she did respond to the current choice of antibiotic. Plan is finishing 14 days. We check chemistry panel every 2 days or so. Job#: [id number] NELSON
[2018-04-19] MEDS: IRON SUCROSE 100 MG in SODIUM CHLORIDE 0.9% 100 ML 100 ML IV SCH (15:06)
[2018-04-19 16:00] VITALS: BP 138/69
[2018-04-19] MEDS ORDERED: SODIUM CHLORIDE 0.9% 250ML 250 ML ONE (21:00)
[2018-04-19] MEDS: PRAVASTATIN 20 MG TAB PO SCH (21:00)
[2018-04-19] MEDS: NIFEDIPINE CR 30 MG TAB PO SCH (21:00)
[2018-04-19] MEDS: INSULIN DETEMIR 100 UNIT/ML PEN SQ SCH (21:14)
[2018-04-20] MEDS: AMPICILLIN SOD 2 GM/NS 100ML 100 ML IV SCH ×4 (00:06→21:45)
[2018-04-20] MEDS: IPRATROPIUM BROMIDE 0.02% 2.5 ML NEB NEB SCH ×4 (01:35→19:30)
[2018-04-20] MEDS: CEFTRIAXONE SOD 1 GM VIAL IV SCH ×2 (04:15→18:23)
[2018-04-20] MEDS: VANCOMYCIN 1GM/NS 250 ML 250 ML IV SCH ×2 (04:45→19:30)
[2018-04-20 06:00] LABS: BASOPHILS % 0.5 % (0.0-1.0); EOSINOPHILS # (AUTO) 0.1 (0.0-0.4); EOSINOPHILS % 2.9 % (0.0-6.0); LYMPHOCYTES % 27.2 % (18.0-39.1); MEAN CORPUSCULAR HEMOGLOBIN 20.9 pg (28-32); MEAN CORPUSCULAR VOLUME 72.1 fL (81-99); MONOCYTES # (AUTO) 0.3 (0.2-0.8); MONOCYTES % 7.7 % (4.4-11.3); NEUTROPHILS # (AUTO) 2.3 (2.1-6.9); NEUTROPHILS % 61.4 % (38.7-80.0); PLATELET COUNT 116 x10e3/uL (140-360); RED CELL DISTRIBUTION WIDTH 32.5 % (11.7-14.4)
[2018-04-20 06:23] LABS: ANION GAP 11.6 mmol/L (8-16); BLOOD UREA NITROGEN 9 mg/dL (7-26); BUN/CREATININE RATIO 11 (6-25); CALCIUM 8.6 mg/dL (8.4-10.2); CARBON DIOXIDE 21 mmol/L (22-29); CHLORIDE 109 mmol/L (98-107); EST GLOMERULAR FILTRATION RATE > 60 ML/MIN (60-); GLUCOSE 123 mg/dL (74-118); MAGNESIUM 1.8 MG/DL (1.3-2.1); POTASSIUM 3.6 mmol/L (3.5-5.1); SODIUM 138 mmol/L (136-145)
[2018-04-20] MEDS: ACYCLOVIR SODIUM 750 MG in SODIUM CHLORIDE 0.9% 250ML 250 ML IV SCH ×3 (06:28→22:36)
[2018-04-20 07:09] LABS: CHOL/HDL RATIO 7.8 (3.0-3.6)
[2018-04-20] MEDS: INSULIN LISPRO 100 UNIT/1 ML 3ML VIAL SQ SCH ×4 (07:30→20:37)
[2018-04-20 08:01] VITALS: BP 157/73
[2018-04-20 08:01] LABS: ANISOCYTOSIS MODERATE; LARGE PLATELETS FEW; PLATELET ESTIMATE MODERATELY DECREASED; POIKILOCYTOSIS MODERATE; RBC MORPHOLOGY COMMENT ABNORMAL
[2018-04-20] MEDS: DOCUSATE SODIUM 100 MG CAP PO SCH ×2 (09:15→17:14)
[2018-04-20] MEDS: OYST-CAL-D 500MG TABLET PO SCH ×2 (09:15→17:15)
[2018-04-20] MEDS: METOPROLOL SUCCINATE 50 MG TAB XL PO SCH (09:16)
[2018-04-20] MEDS: CYANOCOBALAMIN 1,000 MCG TAB PO SCH (09:16)
[2018-04-20] MEDS: LISINOPRIL 10 MG TAB PO SCH (09:16)
[2018-04-20 12:00] VITALS: BP_SYST 153; BP_SYST 157; BP_DIAS 73; BP_DIAS 76
[2018-04-20] MEDS ORDERED: HYDROCODONE/APAP 5MG-325MG TAB PO PRN (12:00)
[2018-04-20 16:07] VITALS: BP 153/76
[2018-04-20 16:10] VITALS: BP 159/84
[2018-04-20] MEDS: POLYETHYLENE GLYCOL 3350 17 GM PACK PO SCH (17:29)
[2018-04-20] MEDS: IRON SUCROSE 100 MG in SODIUM CHLORIDE 0.9% 100 ML 100 ML IV SCH (18:23)
[2018-04-20 18:37] VITALS: BP 151/73
[2018-04-20] MEDS: PRAVASTATIN 20 MG TAB PO SCH (20:36)
[2018-04-20] MEDS: NIFEDIPINE CR 30 MG TAB PO SCH (20:36)
[2018-04-20] MEDS: INSULIN DETEMIR 100 UNIT/ML PEN SQ SCH (20:37)
[2018-04-20] MEDS: ACETAMINOPHEN 325 MG TAB PO PRN (20:43)
[2018-04-20 20:49] VITALS: BP 185/87
[2018-04-20] MEDS ORDERED: AMPICILLIN SOD 2 GM/NS 100ML 100 ML IV SCH (22:00)
[2018-04-21] VITALS (8 sets, daily range): BP systolic 119–179; BP diastolic 64–81
[2018-04-21] MEDS: IPRATROPIUM BROMIDE 0.02% 2.5 ML NEB NEB SCH ×4 (01:15→19:30)
[2018-04-21] MEDS ORDERED: AMPICILLIN SOD 2 GM/NS 100ML 100 ML IV SCH (04:00)
[2018-04-21] MEDS: CEFTRIAXONE SOD 1 GM VIAL IV SCH (04:20)
[2018-04-21] MEDS ORDERED: VANCOMYCIN 1GM/NS 250 ML 250 ML IV SCH ×2 (06:00→08:00)
[2018-04-21 06:24] LABS: BASOPHILS % 0.9 % (0.0-1.0); EOSINOPHILS # (AUTO) 0.1 (0.0-0.4); EOSINOPHILS % 3.5 % (0.0-6.0); HEMATOCRIT 32.5 % (34.2-44.1); HEMOGLOBIN 9.4 g/dL (12.0-16.0); LYMPHOCYTES # (AUTO) 0.9 (1.0-3.2); LYMPHOCYTES % 27.4 % (18.0-39.1); MEAN CORPUSCULAR HEMOGLOBIN 21.1 pg (28-32); MEAN CORPUSCULAR HGB CONC 28.9 g/dL (31-35); MONOCYTES # (AUTO) 0.4 (0.2-0.8); MONOCYTES % 10.2 % (4.4-11.3); NEUTROPHILS % 57.7 % (38.7-80.0); PLATELET COUNT 131 x10e3/uL (140-360); RED BLOOD COUNT 4.45 x10e6/uL (3.6-5.1); RED CELL DISTRIBUTION WIDTH 32.6 % (11.7-14.4)
[2018-04-21 06:46] LABS: ANION GAP 13.6 mmol/L (8-16); BLOOD UREA NITROGEN 8 mg/dL (7-26); BUN/CREATININE RATIO 12 (6-25); CALCIUM 9.1 mg/dL (8.4-10.2); CARBON DIOXIDE 21 mmol/L (22-29); CHLORIDE 107 mmol/L (98-107); CREATININE, SERUM 0.68 mg/dL (0.57-1.11); EST GLOMERULAR FILTRATION RATE > 60 ML/MIN (60-); GLUCOSE 121 mg/dL (74-118); MAGNESIUM 1.7 MG/DL (1.3-2.1); POTASSIUM 3.6 mmol/L (3.5-5.1); SODIUM 138 mmol/L (136-145)
[2018-04-21] MEDS: INSULIN LISPRO 100 UNIT/1 ML 3ML VIAL SQ SCH ×4 (07:30→21:36)
[2018-04-21 08:01] LABS: ANISOCYTOSIS MODE; HYPOCHROMASIA SLIGHT; PLATELET ESTIMATE SLIGHTLY DECREASED; POIKILOCYTOSIS SLIGHT; RBC MORPHOLOGY COMMENT ABNORMAL
[2018-04-21 08:02] LABS: PLATELET MORPHOLOGY COMMENT FEW GIANT
[2018-04-21] MEDS: DOCUSATE SODIUM 100 MG CAP PO SCH ×2 (08:12→17:09)
[2018-04-21] MEDS: CYANOCOBALAMIN 1,000 MCG TAB PO SCH (08:13)
[2018-04-21] MEDS: POLYETHYLENE GLYCOL 3350 17 GM PACK PO SCH ×2 (08:13→17:09)
[2018-04-21] MEDS: OYST-CAL-D 500MG TABLET PO SCH ×2 (08:13→17:09)
[2018-04-21] MEDS ORDERED: LIDOCAINE HCL 1% LOCAL INJ 20 ML VIAL ONE (08:22)
[2018-04-21] MEDS: ACYCLOVIR SODIUM 750 MG in SODIUM CHLORIDE 0.9% 250ML 250 ML IV SCH ×3 (08:23→23:32)
--- NOTE | 2018-04-21 10:32 | Diagnostic Imaging Report ---
Fluoroscopically guided lumbar puncture 04/21/2018 Pre-Procedure Diagnosis: Meningitis Post-procedure Diagnosis:Meningitis Soda Room Operator: Otto Souza Tube Repairer: None Sedation: None. 1% lidocaine local anesthesia. Radiation Dose:42.78 mGy (cumulative air kerma) Fluoroscopy time:0.2 minutes Estimate blood loss: None. Blood administered: None Complications: None Implants/Grafts: None Specimen: 16 mL clear, colorless CSF Procedure: Informed consent was obtained and the patient placed prone after account underwriter radiographs were obtained. A timeout was performed. The back was prepped and draped in standard sterile fashion. Using fluoroscopic guidance a 22-gauge spinal needle was advanced into the thecal sac at the L4-L5 level. Clear, colorless CSF was returned. 16 mL CSF was collected and submitted in 4 vials. The needle was removed and a sterile dressing applied. Findings: Chief Information Security Officer radiograph:5 nonrib-bearing lumbar vertebral bodies. Aortic atherosclerosis. Opening pressure: 15 mm water prone position. Impression: Successful fluoroscopically-guided lumbar puncture. This report was generated with voice-recognition technology. Errors in clinical operations leader can occur. Please interpret accordingly and contact a radiologist if there are any questions regarding the report. Signed by: Dr. En Souza M.D. on 04/21/2018 10:28 AM
--- NOTE | 2018-04-21 10:32 | Diagnostic Imaging Report ---
Fluoroscopically guided lumbar puncture 04/21/2018 Pre-Procedure Diagnosis: Meningitis Post-procedure Diagnosis:Meningitis Yard Hostler: Otto Souza Accounts Adjustable Clerk: None Sedation: None. 1% lidocaine local anesthesia. Radiation Dose:42.78 mGy (cumulative air kerma) Fluoroscopy time:0.2 minutes Estimate blood loss: None. Blood administered: None Complications: None Implants/Grafts: None Specimen: 16 mL clear, colorless CSF Procedure: Informed consent was obtained and the patient placed prone after perfume maker radiographs were obtained. A timeout was performed. The back was prepped and draped in standard sterile fashion. Using fluoroscopic guidance a 22-gauge spinal needle was advanced into the thecal sac at the L4-L5 level. Clear, colorless CSF was returned. 16 mL CSF was collected and submitted in 4 vials. The needle was removed and a sterile dressing applied. Findings: Motion Picture Narrator radiograph:5 nonrib-bearing lumbar vertebral bodies. Aortic atherosclerosis. Opening pressure: 15 mm water prone position. Impression: Successful fluoroscopically-guided lumbar puncture. This report was generated with voice-recognition technology. Errors in demolition hammer operator can occur. Please interpret accordingly and contact a radiologist if there are any questions regarding the report. Signed by: Dr. En Souza M.D. on 04/21/2018 10:28 AM
--- NOTE | 2018-04-21 10:32 | Diagnostic Imaging Report ---
Fluoroscopically guided lumbar puncture 04/21/2018 Pre-Procedure Diagnosis: Meningitis Post-procedure Diagnosis:Meningitis Grease Cup Filler: Otto Souza Mexican Food Cook: None Sedation: None. 1% lidocaine local anesthesia. Radiation Dose:42.78 mGy (cumulative air kerma) Fluoroscopy time:0.2 minutes Estimate blood loss: None. Blood administered: None Complications: None Implants/Grafts: None Specimen: 16 mL clear, colorless CSF Procedure: Informed consent was obtained and the patient placed prone after receiving weigher radiographs were obtained. A timeout was performed. The back was prepped and draped in standard sterile fashion. Using fluoroscopic guidance a 22-gauge spinal needle was advanced into the thecal sac at the L4-L5 level. Clear, colorless CSF was returned. 16 mL CSF was collected and submitted in 4 vials. The needle was removed and a sterile dressing applied. Findings: Manager Career radiograph:5 nonrib-bearing lumbar vertebral bodies. Aortic atherosclerosis. Opening pressure: 15 mm water prone position. Impression: Successful fluoroscopically-guided lumbar puncture. This report was generated with voice-recognition technology. Errors in report writer can occur. Please interpret accordingly and contact a radiologist if there are any questions regarding the report. Signed by: Dr. En Souza M.D. on 04/21/2018 10:28 AM
[2018-04-21 11:36] LABS: TOTAL PROTEIN,CSF 51.9 mg/dL (15-40)
[2018-04-21 11:39] LABS: APPEARANCE,CSF CLEAR (CLEAR); COLOR,CSF COLORLESS (COLORLESS); TUBE NUMBER 2
[2018-04-21 11:42] LABS: WHITE BLOOD CELL,CSF 0 cells/uL (0-5)
[2018-04-21] MEDS ORDERED: LIDOCAINE HCL 4% 50 ML BTL ONE (12:26)
[2018-04-21] MEDS ORDERED: LIDOCAINE HCL 2% 30 ML TUBE ONE (12:27)
[2018-04-21] MEDS ORDERED: ACETYLCYSTEINE 200 MG/ML 4ML VIAL ONE (12:27)
[2018-04-21] MEDS ORDERED: OXYMETAZOLINE HCL 0.05% NAS 1 SPRAY BTL ONE (12:27)
--- NOTE | 2018-04-21 14:15 | Diagnostic Imaging Report ---
PROCEDURE:CHEST SINGLE (PORTABLE) TECHNIQUE:Portable AP chest INDICATION:Post bronchoscopy COMPARISON:Patients [facility], CT, CT CHEST W, 04/14/2018, 8:58. FINDINGS: See conclusion. CONCLUSION: 1. Left subclavian port catheter tip in the mid SVC. 2. Spiculated right apical pulmonary nodule consistent with lung cancer with or without adjacent pneumonia. No pneumothorax. 3. Cardiomegaly. Mildly tortuous thoracic aorta. 4. Intact skeleton. Dictated by: En Souza M.D. on 04/21/2018 at 14:18 Electronically approved by: En Souza M.D. on 04/21/2018 at 14:18
--- NOTE | 2018-04-21 15:32 | Operative Report ---
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 Right upper lobe lesion was noted on x-ray and confirmed on CAT scan. There was suggestion of lymphangitic spread. Old CAT scan was requested, but could not be obtained. Daughter wished to proceed with bronchoscopy as a followup procedure as soon as she was suspicious that her mother had some recurrence. PROCEDURE: The risks and benefits were explained to both. Bronchoscopy was performed under MAC anesthesia. Oral approach was used. The patient was oxygenated with nasal oxygen. Saturation remained 92 or above. She was bronchoscoped orally. There were normal vocal cords. Mild laryngitis, moderate to severe tracheal bronchitis. There was more severe inflammation in the right upper lobe and this area was biopsied as well as transbronchial biopsied under fluoroscopic control, apical segment. The patient tolerated the procedure well. Bleeding was approximately 3 mL. Washings and brushings were also obtained from the right upper lobe. Chest x-ray is pending. The patient tolerated the procedure well. Job#: [id number]
[2018-04-21] MEDS: AMPICILLIN SOD 2 GM/NS 100ML 100 ML IV SCH ×2 (15:40→21:33)
--- NOTE | 2018-04-21 15:59 | Progress Note ---
DATE: INFECTIOUS DISEASE PROGRESS NOTE SUBJECTIVE: Ms. Wu is doing better. No new complaints. REVIEW OF SYSTEMS GENERAL: She is still confused. HEENT: Negative. PULMONARY: Negative. CARDIAC: Negative. Her laboratory data reviewed. Her spinal fluid showed WBC of 0, glucose of 64, protein elevated at 51.9. IMPRESSION: Altered mental status. Concerned about encephalitis. I think since the LP was done 5 days after the treatment was started, I am going to continue with acyclovir for 2 weeks and ampicillin for 3 weeks, stop all other antibiotic. Will follow. Patient can go to an LTAC. Job#: [id number] EV
[2018-04-21] MEDS ORDERED: CITRATE OF MAGNESIA 300ML BOTTLE PO ONE (17:00)
[2018-04-21] MEDS: METOPROLOL SUCCINATE 50 MG TAB XL PO SCH (17:09)
[2018-04-21] MEDS: LISINOPRIL 10 MG TAB PO SCH (17:09)
[2018-04-21] MEDS ORDERED: LIDOCAINE HCL 2% LOCAL INJ 5 ML SDV VIAL INJ ONE (18:03)
[2018-04-21] MEDS ORDERED: PROPOFOL IV EMULSION 10 MG/ML 50 ML VIAL ONE (18:03)
[2018-04-21] MEDS ORDERED: MIDAZOLAM HCL 2 MG/2 ML VIAL ONE (18:55)
[2018-04-21] MEDS: NIFEDIPINE CR 30 MG TAB PO SCH (21:33)
[2018-04-21] MEDS: PRAVASTATIN 20 MG TAB PO SCH (21:33)
[2018-04-21] MEDS: INSULIN DETEMIR 100 UNIT/ML PEN SQ SCH (21:36)
[2018-04-22] MEDS: IPRATROPIUM BROMIDE 0.02% 2.5 ML NEB NEB SCH ×4 (01:02→20:30)
[2018-04-22 01:09] VITALS: BP 159/77
[2018-04-22] MEDS: AMPICILLIN SOD 2 GM/NS 100ML 100 ML IV SCH ×4 (03:47→22:00)
[2018-04-22 05:42] VITALS: BP 160/82
[2018-04-22 06:24] LABS: BASOPHILS % 0.5 % (0.0-1.0); EOSINOPHILS # (AUTO) 0.1 (0.0-0.4); EOSINOPHILS % 2.7 % (0.0-6.0); HEMATOCRIT 33.2 % (34.2-44.1); HEMOGLOBIN 9.9 g/dL (12.0-16.0); LYMPHOCYTES # (AUTO) 1.1 (1.0-3.2); LYMPHOCYTES % 27.7 % (18.0-39.1); MEAN CORPUSCULAR HEMOGLOBIN 21.7 pg (28-32); MEAN CORPUSCULAR HGB CONC 29.8 g/dL (31-35); MEAN CORPUSCULAR VOLUME 72.6 fL (81-99); MONOCYTES # (AUTO) 0.4 (0.2-0.8); MONOCYTES % 9.5 % (4.4-11.3); NEUTROPHILS # (AUTO) 2.4 (2.1-6.9); NEUTROPHILS % 59.1 % (38.7-80.0); PLATELET COUNT 167 x10e3/uL (140-360); RED BLOOD COUNT 4.57 x10e6/uL (3.6-5.1)
[2018-04-22 06:46] LABS: ANION GAP 11.8 mmol/L (8-16); BLOOD UREA NITROGEN 12 mg/dL (7-26); BUN/CREATININE RATIO 18 (6-25); CARBON DIOXIDE 22 mmol/L (22-29); CHLORIDE 105 mmol/L (98-107); CREATININE, SERUM 0.68 mg/dL (0.57-1.11); EST GLOMERULAR FILTRATION RATE > 60 ML/MIN (60-); GLUCOSE 95 mg/dL (74-118); POTASSIUM 3.8 mmol/L (3.5-5.1); SODIUM 135 mmol/L (136-145)
[2018-04-22] MEDS: INSULIN LISPRO 100 UNIT/1 ML 3ML VIAL SQ SCH ×4 (07:30→22:00)
[2018-04-22 08:00] VITALS: BP 156/76
[2018-04-22] MEDS: ACYCLOVIR SODIUM 750 MG in SODIUM CHLORIDE 0.9% 250ML 250 ML IV SCH ×2 (08:00→18:00)
[2018-04-22] MEDS: CYANOCOBALAMIN 1,000 MCG TAB PO SCH (09:00)
[2018-04-22] MEDS: POLYETHYLENE GLYCOL 3350 17 GM PACK PO SCH ×2 (09:00→17:00)
[2018-04-22] MEDS: DOCUSATE SODIUM 100 MG CAP PO SCH ×2 (09:00→17:00)
[2018-04-22] MEDS: LISINOPRIL 10 MG TAB PO SCH (09:00)
[2018-04-22] MEDS: METOPROLOL SUCCINATE 50 MG TAB XL PO SCH (09:00)
[2018-04-22] MEDS: OYST-CAL-D 500MG TABLET PO SCH ×2 (09:00→17:00)
--- NOTE | 2018-04-22 09:23 | Progress Note ---
DATE: Patient seen and examined today. The patient appears comfortable. She had procedure yesterday. PHYSICAL EXAMINATION GENERAL: Alert, awake, lethargic. HEENT: Normocephalic and atraumatic. Sclerae are pink, and conjunctivae are clear. NECK: Supple. CHEST: Clear to auscultation. CARDIOVASCULAR: Regular rate and rhythm. ABDOMEN: Soft. EXTREMITIES: No edema. LABS AND IMAGING: Reviewed. ASSESSMENT AND PLAN: Patient has history of multiple medical conditions. I am currently following for: 1. History of small cell lung cancer/non-small cell lung cancer and currently new right upper lung mass. The patient had procedure yesterday. Further recommendations for treatment pending pathology report. 2. Anemia. Hemoglobin improved. Patient received iron treatment. 3. Encephalopathy. Patient currently following with neurologist. Job#: [id number]
[2018-04-22 09:29] LABS: ANISOCYTOSIS MODE; HYPOCHROMASIA SLIGHT; PLATELET ESTIMATE ADEQUATE; PLATELET MORPHOLOGY COMMENT FEW LARGE; POIKILOCYTOSIS SLIGHT; RBC MORPHOLOGY COMMENT ABNORMAL
[2018-04-22 09:30] LABS: OVALOCYTES FEW
[2018-04-22 12:00] VITALS: BP 144/73
[2018-04-22 16:00] VITALS: BP 124/51
[2018-04-22] MEDS ORDERED: SODIUM CHLORIDE 0.9% 250ML 250 ML ONE (17:32)
[2018-04-22 20:00] VITALS: BP 181/79
[2018-04-22] MEDS: NIFEDIPINE CR 30 MG TAB PO SCH (22:00)
[2018-04-22] MEDS: PRAVASTATIN 20 MG TAB PO SCH (22:00)
[2018-04-22] MEDS: INSULIN DETEMIR 100 UNIT/ML PEN SQ SCH (22:00)
--- NOTE | 2018-04-23 20:23 | Discharge Summary ---
Audio cutting in and out in some portions of the report ADMISSION DIAGNOSES 1. Syncope. 2. Anemia. 3. Hypokalemia. 4. Hypertension. 5. Type-2 diabetes. 6. Carotid stenosis. 7. Hyperlipidemia. DISCHARGE DIAGNOSES 1. Syncope. 2. Anemia. 3. Hypokalemia. 4. Hypertension. 5. Type-2 diabetes. 6. Carotid stenosis. 7. Hyperlipidemia. 8. Encephalitis. 9. Hyponatremia. 10. Hypomagnesemia. HISTORY: Patient has a history of hypertension, hyperlipidemia, diabetes, anemia, dementia. HOSPITAL COURSE: A 67-year-old female presents after syncopal episode yesterday per her daughter. She was found on the floor with emesis, but unable to remember what happened. Per daughter, her physical abilities are worsening and her confusion is increasing. She was found to have small cell lung cancer about 8 years ago, status post chemo and radiation. She was diagnosed with dementia 1-1/2 years later. Per neuro, it was due to the radiation to the brain. Upon admission, the patient had a bilateral carotid Doppler, which showed a right IC 60%-80% stenosis, left IC with 16%-30% stenosis, an echo of 60%-65%, and the brain CT that showed chronic infarcts. On admission, her hemoglobin was 8.3. She had a recent EGD at [facility], which showed esophagitis, gastritis, and a colonoscopy with hemorrhoids. An MRA of the neck was ordered, as well as a CV surgery consult. The MRI/MRA of the head showed no abnormalities. CT of the chest showed a right apical lung mass consisted with reported history of lung cancer. Adjacent to the mass is interstitial thickening and bronchial wall thickening, right infrahilar lymphadenopathy concerning for local node metastasis. The daughter was informed to decide that she wanted to do a biopsy of the mass to see if the cancer had returned; so, oncology was consulted. Per oncology, after speaking with the daughter she said that the last time that she had guided biopsy has failed; so, oncology would prefer to have a bronch done to get the biopsy. Pulmonology was then consulted, who did a bronch on April 21. Reports will be back in about a week per pulmonary. He requested the records from her previous biopsy prior to starting the bronch. Patient was doing well and then, about 2 days into admission, she started to have a fever. ID was consulted, who determined that the patient had some type of encephalitis. He recommended an LP and consulted Dr. Lorenzo to perform it. He also started the patient on acyclovir, vancomycin, ampicillin, and Rocephin. HIV came back negative. Patient also had an LP test due to equipment failure and then, again on April 21. Per infectious disease, the patient will remain on ampicillin for 3 more weeks IV, as well as the acyclovir for 2 more weeks IV. Lumbar puncture and bronch biopsies are still pending. Daughter is aware and will follow up with outpatient oncologist. Inpatient oncologist is very close with outpatient with oncologist. I was able to discuss the findings once they return. Patient will transfer to [place] per daughter's request for long-term antibiotics, as well as physical therapy. Patient is in agreement with the plan after starting the IV antibiotics. The patient is back to her baseline per daughter. Vital signs are stable. On day of discharge, sodium 135, potassium 3.8, GFR of over 60, creatinine of 0.68, WBC of 4.01, platelets 167,000, hemoglobin 9.9, hematocrit 33.2. Patient also received 2 units of PRBCs while in the hospital. Patient will discharge to [place] and follow up with oncology, as well as primary care in 1-2 weeks. Dictated By: Arlene Bejarano NP VALENTINA BARNES MD Job#: [id number] CQ
== END 2018-04-22 22:30 | DRG 28 ==
LOC: ER 20:32 → IMCU 04-13 01:55 → OBSVTOIN 04-14 13:33 → MED/SURG2 04-15 15:28
PROVIDERS: ADMIT Internal Medicine; ATTEND Internal Medicine
PROC: 30243N1 Transfusion of Nonautologous Red Blood Cells into Central Vein, Percutaneous Approach (ICD-10-PCS; 2018-04-15)
PROC: 0BD48ZX Extraction of Right Upper Lobe Bronchus, Via Natural or Artificial Opening Endoscopic, Diagnostic (ICD-10-PCS; 2018-04-21)
PROC: 009U0ZX Drainage of Spinal Canal, Open Approach, Diagnostic (ICD-10-PCS; principal; 2018-04-21 13:00)
PROC: 0B9C8ZX Drainage of Right Upper Lung Lobe, Via Natural or Artificial Opening Endoscopic, Diagnostic (ICD-10-PCS; 2018-04-21 13:00)
DX: A39.81 Meningococcal encephalitis (principal); G93.40 Encephalopathy, unspecified; E87.1 Hypo-osmolality and hyponatremia; R91.8 Other nonspecific abnormal finding of lung field; E87.6 Hypokalemia; E11.9 Type 2 diabetes mellitus without complications; I65.29 Occlusion and stenosis of unspecified carotid artery; E83.42 Hypomagnesemia; F03.90 Unspecified dementia, unspecified severity, without behavioral disturbance, psychotic disturbance, mood disturbance, and anxiety; Y84.2 Radiological procedure and radiotherapy as the cause of abnormal reaction of the patient, or of later complication, without mention of misadventure at the time of the procedure; K29.70 Gastritis, unspecified, without bleeding; K20.9 Esophagitis, unspecified; I65.23 Occlusion and stenosis of bilateral carotid arteries; Z86.73 Personal history of transient ischemic attack (TIA), and cerebral infarction without residual deficits; Z85.118 Personal history of other malignant neoplasm of bronchus and lung; Z87.891 Personal history of nicotine dependence; K59.00 Constipation, unspecified; D63.8 Anemia in other chronic diseases classified elsewhere; D50.9 Iron deficiency anemia, unspecified; I10 Essential (primary) hypertension; R59.1 Generalized enlarged lymph nodes; Z79.4 Long term (current) use of insulin
CPT/HCPCS: 31623; 31625; 36415; 36600; 62270; 70450; 70544; 70551; 71045; 71260; 74470; 76001; 77003; 80048; 80053; 80061; 80202; 81001; 82140; 82550; 82553; 82607; 82728; 82746; 82805; 82945; 82948; 83036; 83540; 83735; 83880; 84157; 84439; 84443; 84466; 84481; 84484; 85014; 85018; 85025; 85610; 85730; 86606; 86612; 86635; 86698; 86850; 86870; 86880; 86900; 86905; 86920; 86922; 87040; 87070; 87086; 87102; 87116; 87205; 87206; 87335; 87529; 88112; 88305; 89051; 93005; 93306; 93880; 94640; 95812; 97139; 99001; 99284; G0378; J0360; J0692; J0696; J1756; J2001; J2250; J3370; J3480; J7040; J7050; P9016; Q9967

== ENCOUNTER 2020-10-21 16:08 | Inpatient (IN) | payer OTHER ==
[~2020-10-21] VITALS: Ht 160 cm; Wt 87.1 kg
[~2020-10-21 16:08] MED LIST: AMLODIPINE BESYL5 MG PO; HUMALOG100 UNIT/1; LANTUS 3ML100 UNITS/; LISINOPRIL10 MG PO; METOPROLOL SUCC50 MG PO; PRAVASTATIN SOD10 MG; TRAZODONE HCL50 MG PO
--- OUTSIDE RECORDS SUMMARY | 2020-10-21 16:18 | XMS REPORT | Clinical Summary ---
Author Author [facility]an [facility] Organization [facility] Address Unknown Phone Unavailable Care Team Providers Care Manager Corporate Communications Name Role Phone Jay Tipton DO PCP [phone] Allergies Comments Active Allergy Reactions Severity Noted Date Agitation, delirious Lorazepam Other (See Medium 03/26/2017 Comments) Lorazepam Altered 11/26/2019 Mental Status Codeine 03/26/2017 Codeine Itching 11/26/2019 Medications End Date Status Medication Sig Dispensed Refills Start Date Active insulin ASPART (NovoLOG Inject 8 0 Flexpen) 100 unit/mL Units under insulin pen the skin 3 (three) times a day before meals. Active insulin GLARGINE (LANTUS Inject 24 0 SOLOSTAR) 100 unit/mL Units under injection (pen) the skin nightly. Active traZODone (DESYREL) 100 Take 100 mg 0 MG tablet by mouth nightly as needed for sleep. Active pravastatin (PRAVACHOL) Take 10 mg by 0 10 MG tablet mouth nightly. Active melatonin 3 mg tablet Take 3 mg by 0 mouth nightly as needed for sleep. Active lisinopril Take 1 tablet 60 tablet 0 (PRINIVIL,ZESTRIL) 10 mg (10 mg total) 7 tablet by mouth 2 (two) times a day for 30 days. Active traZODone (DESYREL) 100 Take 100 mg 0 MG tablet by mouth nightly. Active amLODIPine (NORVASC) 5 mg Take 5 mg by 0 tablet mouth daily. Active lisinopril (PRINIVIL) 10 Take 10 mg by 0 mg tablet mouth daily. Active metoprolol tartrate Take 50 mg by 0 (LOPRESSOR) 50 mg tablet mouth daily. Active insulin GLARGINE (LANTUS) Inject 24 0 100 unit/mL injection Units under (vial) the skin nightly. Active insulin ASPART (NovoLOG) Inject 8 0 100 unit/mL injection Units under the skin 3 (three) times a day before meals. Active melatonin 5 mg capsule Take 5 mg by 0 mouth nightly as needed. Active potassium 99 mg tablet Take 99 mg by 0 mouth daily as needed. 11/27/2019 Discontinued (Stop Taking at Discharge) pravastatin (PRAVACHOL) Take 10 mg by 0 10 MG tablet mouth daily. 12/28/2019 aspirin (ECOTRIN) 81 MG Take 1 tablet 30 tablet 0 enteric coated tablet (81 mg total) 0 by mouth daily for 30 days. 12/27/2019 atorvastatin (LIPITOR) 40 Take 1 tablet 30 tablet 0 MG tablet (40 mg total) 0 by mouth nightly for 30 days. Active Problems Problem Noted Date TIA (transient ischemic attack) 11/26/2019 Severe anemia 04/08/2018 Altered mental status, unspecified 03/26/2017 Encounters Care Team Description Date Type Specialty Hero Sorto-MD Margarito Smith Remy, DO TIA (transient ischemic attack) (Primary Dx) 11/26/2019 [facility] Internal Ct dicine - Encounter 11/27/2019 after 10/21/2019 Immunizations Name Administration Dates Next Due FLUZONE HIGH-DOSE PF 11/27/2019 Pneumococcal Conjugate 11/27/2019 [facility] Surgical History Surgery Date Site/Laterality Comments PORTACATH PLACEMENT TUBAL LIGATION COLONOSCOPY 04/10/2018 N/A Procedure: COLO NOSCOPY; Surgeon: Brodie Williamson MD; Location: [facility]; Servic e: Gastroenterology; Laterality: N/A; ESOPHAGOGASTRODUODENOSCOP 04/10/2018 Esophagus/Later Pro cedure: ESOPHAGOGASTRODUODENOSCOPY (EGD); Y (EGD) al Surgeon: Brodie Williamson MD; Location: [facility]; Service: Gastroenterology; Laterality: Lateral; Medical History Medical History Date Comments Diabetes mellitus (HCC) IDDM TIA (transient ischemic attack) Arthritis Pneumonia Anemia History of blood transfusion Cancer (HCC) lung cancer- in remission Cancer (HCC) lung Diabetes mellitus (HCC) Stroke (HCC) [id number] Hypertension Dementia (HCC) Family History Medical History Relation Name Comments Cancer Father Tumor in stomach Diabetes Mother Relation Name Status Comments Father Mother Social History Date Tobacco Use Types Packs/Day Years Used Quit: 11/26/2009 Former Smoker Cigarettes 1 Smokeless Tobacco: Never Used Drinks/Week oz/Week Comments Alcohol Use Not Currently Sex Assigned at Date Recorded Not on file Last Filed Vital Signs Reading Time Taken Comments Vital Sign 140/65 11/27/2019 10:41 AM [employer] Blood Pressure 77 11/27/2019 10:41 AM VISUAL ARTS TEACHER Pulse 36.5 C (97.7 F) 11/27/2019 10:41 AM VISUAL ARTS TEACHER Temperature 20 11/27/2019 10:41 AM VISUAL ARTS TEACHER Respiratory Rate 99% 11/27/2019 10:41 AM VISUAL ARTS TEACHER Oxygen Saturation - - Inhaled Oxygen Concentration 89.8 kg (198 lb) 11/26/2019 3:10 PM VISUAL ARTS TEACHER Weight 154.9 cm (5' 1") 11/26/2019 3:10 PM [employer]ISUAL ARTS TEACHER Height 37.41 11/26/2019 3:10 PM VISUAL ARTS TEACHER Body Mass Index Plan of Treatment Health Maintenance Due Date Last Done Comments COLONOSCOPY SCREENING 2000 SHINGLES VACCINES (#1) 2000 BREAST CANCER SCREENING 02/24/2015 02/24/2013, 02/11/2013 INFLUENZA VACCINE 06/24/2020 11/27/2019 65+ PNEUMOCOCCAL VACCINE 11/27/2020 11/27/2019 (2 of 2 - PPSV23) Procedures Comments Procedure Name Priority Date/Time Associated Diag nosis POC GLUCOSE Routine 11/27/2019 11:14 AM VISUAL ARTS TEACHER VITAMIN B12 LEVEL Routine 11/27/2019 10:05 AM VISUAL ARTS TEACHER POC GLUCOSE Routine 11/27/2019 5:14 AM VISUAL ARTS TEACHER T4, FREE Routine 11/27/2019 4:46 AM VISUAL ARTS TEACHER THYROID STIMULATING Routine 11/27/2019 HORMONE 4:46 AM VISUAL ARTS TEACHER ESTIMATED GFR Routine 11/27/2019 4:46 AM VISUAL ARTS TEACHER COMPREHENSIVE METABOLIC Routine 11/27/2019 PANEL 4:46 AM VISUAL ARTS TEACHER HC COMPLETE BLD COUNT Routine 11/27/2019 W/AUTO DIFF 4:46 AM VISUAL ARTS TEACHER LIPID PANEL Routine 11/27/2019 4:46 AM VISUAL ARTS TEACHER TROPONIN Timed 11/27/2019 1:20 AM VISUAL ARTS TEACHER TROPONIN Timed 11/26/2019 10:15 PM VISUAL ARTS TEACHER POC GLUCOSE Routine 11/26/2019 8:07 PM VISUAL ARTS TEACHER MRA NECK WO CONTRAST STAT 11/26/2019 6:46 PM VISUAL ARTS TEACHER MRA HEAD WO CONTRAST STAT 11/26/2019 6:32 PM VISUAL ARTS TEACHER MRI STROKE BRAIN WO STAT 11/26/2019 CONTRAST 6:11 PM VISUAL ARTS TEACHER POC GLUCOSE Routine 11/26/2019 5:22 PM VISUAL ARTS TEACHER TROPONIN Timed 11/26/2019 5:22 PM VISUAL ARTS TEACHER URINALYSIS SCREEN AND STAT 11/26/2019 MICROSCOPY, WITH REFLEX 4:37 PM VISUAL ARTS TEACHER TO CULTURE URINE CULTURE STAT 11/26/2019 4:37 PM VISUAL ARTS TEACHER TTE COMPLETE, WO Routine 11/26/2019 CONTRAST, W AGITATED 4:30 PM VISUAL ARTS TEACHER SALINE ([id number]) CT ANGIOGRAM NECK W WO STAT 11/26/2019 CONTRAST 4:00 [address] [address] [address] ANGIOGRAM HEAD W WO STAT 11/26/2019 CONTRAST 3:55 [address] [address] [address] STROKE BRAIN WO STAT 11/26/2019 CONTRAST 3:46 PM VISUAL ARTS TEACHER ECG 12-LEAD STAT 11/26/2019 3:30 PM VISUAL ARTS TEACHER ECG ED PRELIMINARY Routine 11/26/2019 INTERPRETATION 3:23 PM VISUAL ARTS TEACHER ESTIMATED GFR STAT 11/26/2019 3:17 PM VISUAL ARTS TEACHER COMPREHENSIVE METABOLIC STAT 11/26/2019 PANEL 3:17 PM VISUAL ARTS TEACHER PROTHROMBIN TIME WITH INR STAT 11/26/2019 3:17 PM VISUAL ARTS TEACHER PARTIAL THROMBOPLASTIN STAT 11/26/2019 TIME (PTT) 3:17 PM VISUAL ARTS TEACHER HC COMPLETE BLD COUNT STAT 11/26/2019 W/AUTO DIFF 3:17 PM VISUAL ARTS TEACHER after 10/21/2019 Results * POC glucose (11/27/2019 11:14 AM VISUAL ARTS TEACHER) Only the most recent of 4 results within the time period is included. [facility] POC glucose 294 (H) 65 - 99 mg/dL [facility] Comment: SHAILA VALLE Mechanical Operator Name: [facility] TNeisha Device ID: [id number] Specimen Performing Organization Address [facility] P brandon Number [address] [place] [address] PATHOLOGY AND GENOMIC MEDICINE [place] SHAILA VALLE [address] [place] [address] * Vitamin B12 level (11/27/2019 10:05 AM VISUAL ARTS TEACHER) [facility] Vitamin B12 482 211 - 946 pg/mL [facility] Comment: SHAILA VALLE Significant overlap exists [facility] between normal and deficiency states. However, most patients with deficiencies will have Serum B12 <200 pg/mL. Specimen Serum Performing Organization Address [facility] P brandon Number [address] [place] [address] PATHOLOGY AND [facility] MEDICINE [place] SHAILA VALLE [address] [place] [address] * Estimated GFR (11/27/2019 4:46 AM VISUAL ARTS TEACHER) Only the most recent of 2 results within the time period is included. Pathologist [facility] Estimated GFR 42 (A) mL/min/1.73 m2 [place] Comment: SHAILA VALLE [facility] Interpretation G1 >=90 Normal or high G2 60-89 Mildly decreased G3a 45-59 Mildly to moderately decreased G3b 30-44 Moderately to severely decreased G4 15-29 Severely decreased G5 <15 Kidney failure The eGFR was calculated using the Chronic Kidney Disease Epidemiology Collaboration (CKD-EPI) equation. Interpretation is based on recommendations of the National Kidney Foundation-Kidney Disease Outcomes Quality Initiative (NKF-KDOQI) published in 2014. Specimen Plasma specimen Performing Organization Address City/[facility]/ZIP Code P brandon Number [facility] [place] [address] PATHOLOGY AND GENOMIC MEDICINE [facility] [id number] [place] [address] * CBC with platelet and differential (11/27/2019 4:46 AM VISUAL ARTS TEACHER) Only the most recent of 2 results within the time period is included. WBC 7.44 4.50 - 11.00 k/uL [facility] RBC 4.77 4.20 - 5.50 m/uL [facility] HGB 10.8 (L) 12.0 - 16.0 g/dL [facility] HCT 35.8 (L) 37.0 - 47.0 % [facility] MCV 75.1 (L) 82.0 - 100.0 fL [facility] MCH 22.6 (L) 27.0 - 34.0 pg [facility] MCHC 30.2 (L) 31.0 - 37.0 g/dL [facility] RDW - SD 41.4 37.0 - 55.0 fL [facility] MPV 12.1 8.8 - 13.2 fL [facility] Platelet count 195 150 - 400 k/uL [facility] Nucleated RBC 0.00 /100 WBC [facility] Neutrophils 53.9 39.0 - 69.0 % [facility] Lymphocytes 34.0 25.0 - 45.0 % [facility] Monocytes 6.6 0.0 - 10.0 % [facility] Eosinophils 4.3 0.0 - 5.0 % [facility] Basophils 0.9 0.0 - 1.0 % [facility] Specimen Blood Performing Organization Address City/State/ZIP Code P brandon Number [facility] [address] [place] [address] PATHOLOGY AND GENOMIC MEDICINE [address] * Thyroid stimulating hormone (11/27/2019 4:46 AM VISUAL ARTS TEACHER) TSH 3.63 0.27 - 4.20 uIU/mL [facility] Specimen Plasma specimen Performing Organization Address City/State/ZIP Code P brandon Number [facility] [place] [address] [address] [address] PATHOLOGY AND [facility] MEDICINE [facility] [id number] [place] [address] [place] [address] [facility] * T4, free (11/27/2019 4:46 AM VISUAL ARTS TEACHER) T4, free 0.93 0.90 - 1.70 ng/dL [facility] Specimen Plasma specimen Performing Organization Address City/[facility] Code P brandon Number [facility] DEPART[facility] [address] [place] [address] PATHOLOGY AND [facility] MEDICINE [facility] [id number] [place] [address] [place] [address] [facility] * Lipid panel (11/27/2019 4:46 AM VISUAL ARTS TEACHER) Cholesterol 160 <200 mg/dL [facility] Triglycerides 343 (A) <150 mg/dL [facility] HDL cholesterol 33 (L) >40 mg/dL [facility] LDL cholesterol 74Comment: Result obtained by <100 mg/dL [facility] direct LDL measurement [facility] Lipid panel [facility] interpretation Comment: [facility] Total Cholesterol (mg/dL) [facility] <200 Desirable 200-239 Borderline-high >=240 High Triglycerides [...] >20%) Multiple (2+) risk factors <130 (10-year risk =<20%) 0-1 risk factors <160 (<10-year risk) Defining levels of lipids in metabolic syndrome Triglycerides >=150 mg/dL HDL Cholesterol Men <40 mg/dL Women <40 mg/dL Non-HDL cholesterol is a second target for therapy in persons with high triglycerides (>=200 mg/dL) Specimen Plasma specimen Performing Organization Address City/[facility] Code P brandon Number [facility] DEPART[facility] [address] [place] [address] PATHOLOGY AND GENOMIC MEDICINE [facility] [id number] [place] [address] [place] [id number] [facility] * Comprehensive metabolic panel (11/27/2019 4:46 AM VISUAL ARTS TEACHER) Only the most recent of 2 results within the time period is included. Sodium 139 135 - 148 mEq/L [facility] Potassium 4.3 3.5 - 5.0 mEq/L [facility] Chloride 102 98 - 112 mEq/L [facility] CO2 24 24 - 31 mEq/L [facility] Anion gap 13@ANIO 7 - 15 mEq/L [facility] BUN 20 8 - 23 mg/dL [facility] Creatinine 1.30 (H) 0.50 - 0.90 mg/dL [facility] Glucose 201 (H) 65 - 99 mg/dL [facility] Calcium 9.9 8.8 - 10.2 mg/dL [facility] Protein 8.2 6.3 - 8.3 g/dL [facility] Comment: [facility] Lenkrms0044.6-7.0 g/dL [facility] 1 iojw9577.4-7.6 g/dL 7 months-9vhwo962.1-7.3 g/dL 1-2 lnitl989.6-7.5 g/dL >3 .0-8.0 g/dL 18-8983601.3-8.3 g/dL Albumin 4.2 3.5 - 5.0 g/dL [facility] A/G ratio 1.0 0.7 - 3.8 [facility] Alkaline 72 35 - 104 U/L [place] phosphatase [facility] AST 34 10 - 35 U/L [facility] ALT 42 5 - 50 U/L [facility] Total bilirubin 0.3 0.0 - 1.2 mg/dL [facility] Specimen Plasma specimen Performing Organization Address City/State/ZIP Code P [place] [address] [place] [address] PATHOLOGY AND GENOMIC MEDICINE [facility] [id number] [place] [address] [place] [phone] [facility] * Troponin (11/27/2019 1:20 AM VISUAL ARTS TEACHER) Only the most recent of 3 results within the time period is included. Troponin <0.006 0.000 - 0.040 ng/mL [facility] Comment: SHAILA VALLE In patients suspected of [facility] having a myocardial infarction, along with all other appropriate clinical measures and actions including ECG and other diagnostics as appropriate, measure Ultra TnI at 0 hrs and at 3 hrs. Myocardial infarction VERY LIKELY The 0 hr TnI level is > 0.10 ng/mL Myocardial infarction LIKELY The 0 hr TnI level is > 0.04 ng/mL and 3 hr level is increased or decreased by at least 0.020 ng/mL Myocardial infarction VERY UNLIKELY Both the 0 hr and 3 hr TnI levels <= 0.04 ng/mL(within normal limits) OR 0 hr is > 0.04 ng/mL and 3 hr is increased OR decreased by less than 0.020 ng/mL Specimen Plasma specimen Performing Organization Address City/State/ZIP Code P [place] [address] [place] [address] PATHOLOGY AND GENOMIC MEDICINE [place] SHAILA VALLE [address] [place] [address] [facility] * MRA Neck Wo Contrast (11/26/2019 6:46 PM VISUAL ARTS TEACHER) Specimen Narrative Performed At EXAMINATION: MRA NECK WO CONTRAST [facility] CLINICAL HISTORY: tia COMPARISON: None. IMAGING DEVICE: 3.0 Kenna MR. 3-D recon structions were processed off-line TECHNIQUE: Multiplanar and multisequenc e MRA imaging of the neck obtained. CONTRAST: No IV contrast administered . FINDINGS: Exam is limited due to motion artifact AORTIC ARCH: Left-sided aortic arch wit h common origin of the brachiocephalic and left common carotid artery. Limit ed views show no evident dissection, aneurysms, penetrating ulcer or coarcta tion. No evidence of proximal occlusion or flow-limiting stenosis at the ostium of the supraaort ic arteries. RIGHT: COMMON CAROTID ARTERY: Normal, no proxi mal flow-limiting stenosis, occlusion, dissection, aneurysms, pseudoaneurysms or vascular malformations. CAROTID BIFURCATION AND ICA: Nonocclusi ve atherosclerotic changes resulting in less than 20% stenosis. No evidence of underlying flow-limiting stenosis, occlusion, dissection, aneurysms, pseud oaneurysms or vascular malformations. VERTEBRAL ARTERY: Normal, no proximal f low-limiting stenosis, occlusion, dissection, aneurysms, pseudoaneurysms or vascular malformations. LEFT: COMMON CAROTID ARTERY: Normal, no proxi mal flow-limiting stenosis, occlusion, dissection, aneurysms, pseudoaneurysms or vascular malformations. CAROTID BIFURCATION AND ICA: Partially obscured by motion artifact there is eccentric calcified vascular changes re sulting in approximately 50% stenosis. There is distal flow reconstitution wit h no evidence of tandem occlusion, dissection, aneurysms or AVMs VERTEBRAL ARTERY: Normal, no proximal f low-limiting stenosis, occlusion, dissection, aneurysms, pseudoaneurysms or vascular malformations. OTHER: None IMPRESSION: 1. Limited exam due to motion artifact 2. Calcified atherosclerotic changes in the bilateral carotid bifurcations, within the limitations given by the abo ve-mentioned artifact there is approximately 50% stenosis of the left internal carotid artery origin, followed by distal flow reconstitution with no evident occlusio n, dissection, aneurysms or AVMs 3. Unremarkable vertebral arteries 4. Common origin of the brachiocephalic and left common carotid arteries [id number] Procedure Note Hm Interface, Radiology Results Incoming - 11/26/2019 7:04 PM VISUAL ARTS TEACHER EXAMINATION: MRA NECK WO CONTRAST CLINICAL HISTORY: tia COMPARISON: None. IMAGING DEVICE: 3.0 Kenna MR. 3-D reconstructions were processed off-line TECHNIQUE: Multiplanar and multisequence MRA imaging of the neck obtained. CONTRAST: No IV contrast administered. FINDINGS: Exam is limited due to motion artifact AORTIC ARCH: Left-sided aortic arch with common origin of the brachiocephalic and left common carotid artery. Limited views show no evident dissection, aneurysms, penetrating ulcer or coarctation. No evidence of proximal occlusion or flow-limiting stenosis at the ostium of the supraaortic arteries. RIGHT: COMMON CAROTID ARTERY: Normal, no proximal flow-limiting stenosis, occlusion, dissection, aneurysms, pseudoaneurysms or vascular malformations. CAROTID BIFURCATION AND ICA: Nonocclusive atherosclerotic changes resulting in less than 20% stenosis. No evidence of underlying flow-limiting stenosis, occlusion, dissection, aneurysms, pseudoaneurysms or vascular malformations. VERTEBRAL ARTERY: Normal, no proximal flow-limiting stenosis, occlusion, dissection, aneurysms, pseudoaneurysms or vascular malformations. LEFT: COMMON CAROTID ARTERY: Normal, no proximal flow-limiting stenosis, occlusion, dissection, aneurysms, pseudoaneurysms or vascular malformations. CAROTID BIFURCATION AND ICA: Partially obscured by motion artifact there is eccentric calcified vascular changes resulting in approximately 50% stenosis. There is distal flow reconstitution with no evidence of tandem occlusion, dissection, aneurysms or AVMs VERTEBRAL ARTERY: Normal, no proximal flow-limiting stenosis, occlusion, dissection, aneurysms, pseudoaneurysms or vascular malformations. OTHER: None IMPRESSION: 1. Limited exam due to motion artifact 2. Calcified atherosclerotic changes in the bilateral carotid bifurcations, within the limitations given by the above-mentioned artifact there is approximately 50% stenosis of the left internal carotid artery origin, followed by distal flow reconstitution with no evident occlusion, dissection, aneurysms or AVMs 3. Unremarkable vertebral arteries 4. Common origin of the brachiocephalic and left common carotid arteries [id number] Performing Organization Address City/State/ZIP Code P brandon Number [facility] [address] [place] [address] * MRA Head Wo Contrast (11/26/2019 6:32 PM VISUAL ARTS TEACHER) Specimen Narrative Performed At EXAMINATION: MRA HEAD WO CONTRASTINCLUDING 3D MIP R ECONSTRUCTED IMAGES. [facility] CLINICAL HISTORY: tia COMPARISON: CTA brain November 26, 2019 FINDINGS: There is a mild stenosis in the carotid siphon on the left and to a lesser degree on the right. There is what appe ars to be a small infundibulum at the expected origin of the posterior commun icating artery on the left. On the axial images there is a small nodular extension of flow signal from the inferior wall of the inferior aspect of the carotid siphon on the lef t. This is not present on the coronal images and therefore would appear to be artifactual. There is no abnormality in this location on the CT angiogram. There is no abnormality demonstrated in the anterior intracranial circulation. The A1 segment on the left is slightly hypoplastic. There is a dominant prominent distal le ft vertebral artery with hypoplastic distal right vertebral artery. There is an appearance of stenosis at the junction of the right vertebral artery with the basilar artery. This is not present on the prior study and may be artifactual. There is mild smooth luminal narrowing in the V4 segment on the left. There is no significant abnormality in the basil ar artery except for mild tortuous looping of the vertebral basilar juncti on towards the left. There is an appearance of atherosclerotic luminal irregularity with at least mild stenosis in the P2 segment on the left. There is no other abnormality in the po sterior circulation. IMPRESSION: Mild stenosis in the carotid siphon on the left and to a lesser be on the right. Atherosclerotic luminal irregularity in the posterior cerebral artery on the left. There is a question of stenosis at the junction of the right vertebral artery with the basilar artery which may be ar tifactual. Otherwise the findings correlate with the prior study. [id number] Procedure Note Hm Interface, Radiology Results Incoming - 11/26/2019 6:49 PM VISUAL ARTS TEACHER EXAMINATION: MRA HEAD WO CONTRASTINCLUDING 3D MIP RECONSTRUCTED IMAGES. CLINICAL HISTORY: tia COMPARISON: CTA brain November 26, 2019 FINDINGS: There is a mild stenosis in the carotid siphon on the left and to a lesser degree on the right. There is what appears to be a small infundibulum at the expected origin of the posterior communicating artery on the left. On the axial images there is a small nodular extension of flow signal from the inferior wall of the inferior aspect of the carotid siphon on the left. This is not present on the coronal images and therefore would appear to be artifactual. There is no abnormality in this location on the CT angiogram. There is no abnormality demonstrated in the anterior intracranial circulation. The A1 segment on the left is slightly hypoplastic. There is a dominant prominent distal left vertebral artery with hypoplastic distal right vertebral artery. There is an appearance of stenosis at the junction of the right vertebral artery with the basilar artery. This is not present on the prior study and may be artifactual. There is mild smooth luminal narrowing in the V4 segment on the left. There is no significant abnormality in the basilar artery except for mild tortuous looping of the vertebral basilar junction towards the left. There is an appearance of atherosclerotic luminal irregularity with at least mild stenosis in the P2 segment on the left. There is no other abnormality in the posterior circulation. IMPRESSION: Mild stenosis in the carotid siphon on the left and to a lesser be on the right. Atherosclerotic luminal irregularity in the posterior cerebral artery on the left. There is a question of stenosis at the junction of the right vertebral artery with the basilar artery which may be artifactual. Otherwise the findings correlate with the prior study. [id number] Performing Organization Address City/State/ZIP Code P brandon Number [facility] [address] [place] [address] * MRI Stroke Brain Wo Contrast (11/26/2019 6:11 PM VISUAL ARTS TEACHER) Specimen Narrative Performed At EXAMINATION: MRI STROKE BRAIN WO CONTRAST [facility] NT CLINICAL HISTORY: TIA initial exam COMPARISON: CT scan dated 11/26/2019 IMAGING DEVICE: 3.0 Kenna MR. 3-D recon structions were processed off-line TECHNIQUE: Multiplanar and multisequenc e MRI imaging of the brain obtained. CONTRAST: No IV contrast administered . FINDINGS: CEREBRUM: *No evident edema, hemorrhage, mass, mi dline shift or acute infarction *There is moderate symmetric cerebral v olume loss with subsequent enlargement of the lateral ventricles and subarachnoid spaces. *Extensive subcortical and periventricu lar T2 hyperintensities representing chronic microangiopathic changes. *Chronic lacunar and perforating infarc ts seen in the mehta radiata bilaterally in addition to enlarged subependymal pe rivascular spaces in addition to the left lateral ventricle atrium and in the cau date nuclei bilaterally CEREBELLUM: *No evident edema, hemorrhage, mass, mi dline shift or acute infarction *Moderate volume loss. BRAINSTEM: *No evident edema, hemorrhage, mass, mi dline shift or acute infarction *No evidence of inappropriate atrophy. CSF SPACES: *Ventricles, cisterns, and sulci are en larged. *No hydrocephalus, subarachnoid hemorrh age, or mass. VASCULAR: *Limited assessment with no evident abn ormalities of hoopa of [place] and dural sinuses. SKULL: *No focal lesions, mass, displaced frac tures or other visible lesion. SINUSES: *Limited views demonstrate no mass, sig nificant mucosal thickening or fluid. ORBITS: *Limited views shows chronic right orbi celena blowout fracture. No focal lesion fracture or other visible lesion. OTHER: *Moderate mucosal thickening seen in th e bilateral mastoid air cells IMPRESSION: 1. Negative exam for acute intracranial hemorrhage, new infarct, mass effect, midline shift, hydrocephalus or brain h erniation 2. Other chronic findings described in the body the report appears unchanged when compared with previous CT [id number] Procedure Note Hm Interface, Radiology Results Incoming - 11/26/2019 6:27 PM VISUAL ARTS TEACHER EXAMINATION: MRI STROKE BRAIN WO CONTRAST CLINICAL HISTORY: TIA initial exam COMPARISON: CT scan dated 11/26/2019 IMAGING DEVICE: 3.0 Kenna MR. 3-D reconstructions were processed off-line TECHNIQUE: Multiplanar and multisequence MRI imaging of the brain obtained. CONTRAST: No IV contrast administered. FINDINGS: CEREBRUM: *No evident edema, hemorrhage, mass, midline shift or acute infarction *There is moderate symmetric cerebral volume loss with subsequent enlargement of the lateral ventricles and subarachnoid spaces. *Extensive subcortical and periventricular T2 hyperintensities representing chronic microangiopathic changes. *Chronic lacunar and perforating infarcts seen in the mehta radiata bilaterally in addition to enlarged subependymal perivascular spaces in addition to the left lateral ventricle atrium and in the caudate nuclei bilaterally CEREBELLUM: *No evident edema, hemorrhage, mass, midline shift or acute infarction *Moderate volume loss. BRAINSTEM: *No evident edema, hemorrhage, mass, midline shift or acute infarction *No evidence of inappropriate atrophy. CSF SPACES: *Ventricles, cisterns, and sulci are enlarged. *No hydrocephalus, subarachnoid hemorrhage, or mass. VASCULAR: *Limited assessment with no evident abnormalities of hoopa of [place] and dural sinuses. SKULL: *No focal lesions, mass, displaced fractures or other visible lesion. SINUSES: *Limited views demonstrate no mass, significant mucosal thickening or fluid. ORBITS: *Limited views shows chronic right orbital blowout fracture. No focal lesion fracture or other visible lesion. OTHER: *Moderate mucosal thickening seen in the bilateral mastoid air cells IMPRESSION: 1. Negative exam for acute intracranial hemorrhage, new infarct, mass effect, midline shift, hydrocephalus or brain herniation 2. Other chronic findings described in t he body the report appears unchanged when compared with previous CT [id number] Performing Organization Address City/State/ZIP Code P brandon Number [facility] [address] [place] [address] * Urinalysis screen and microscopy, with reflex to culture (11/26/2019 4:37 PM VISUAL ARTS TEACHER) Specimen site Clean catch [facility] Color, UA Straw [facility] Appearance, UA Clear [facility] Specific 1.020 1.001 - 1.035 [place] gravity, UA [facility] pH, UA 7.0 5.0 - 8.5 [facility] Protein, UA 1+ (A) Negative [facility] Glucose, UA 3+ (A) Negative [facility] Ketones, UA Negative Negative [facility] Bilirubin, UA Negative Negative [facility] Blood, UA Negative Negative [facility] Nitrite, UA Negative Negative [facility] Urobilinogen, Negative <2.0 [facility] Leukocyte Negative Negative [place] esterase, [facility] Epithelial None seen Few /HPF [place] cells, [facility] WBC, UA None seen 0 - 4 /HPF [facility] RBC, UA 0-5 0 - 5 /HPF [facility] Bacteria, UA Few None seen [facility] Yeast, UA None seen [facility] Yeast with None seen [place] pseudohyphae, [facility] Specimen Urine Performing Organization Address [facility] P brandon Number [address] [place] [address] PATHOLOGY AND GENOMIC MEDICINE [address] * Urine culture (11/26/2019 4:37 PM VISUAL ARTS TEACHER) Pathologist [facility] Urine culture SEE COMMENTComment: [place] Bacteriuria screen negative. [facility] Specimen Urine Performing Organization Address City/[facility] P brandon Number [address] [place] [address] PATHOLOGY AND GENOMIC MEDICINE [address] * Echocardiogram complete w contrast and 3D if needed (11/26/2019 4:30 PM VISUAL ARTS TEACHER) Velocity Ratio 0.75 m/s [facility] (V1/V2) IVS,d 1.03 cm [facility] Ao root annulus 3.63 cm [facility] EF 61.82 % [facility] LVPWD,d 1.08 cm [facility] AoV Mean PG 4.86 mmHg [facility] AV LVOT peak 5.62 mmHg [facility] gradient MV valve area p 5.90 cm2 [facility] 1/2 method E/A ratio 0.72 [facility] E wave 194.75 msec [facility] decelartion time LVOT Diam,S 2.02 cm [facility] LVOT area 3.20 cm2 [facility] LVOT Vmax 1.19 m/s [facility] LVOT VTI 0.23 m [facility] AoV Peak PG 9.95 mmHg [facility] MV Peak E Yasir 0.74 m/s [facility] MV stenosis 37.29 ms [facility] pressure 1/2 time MV Peak A Yasir 1.03 m/s [facility] LV Vol,s A2C 25.81 mL [facility] LV Vol,d A2C 54.99 mL [facility] AoV Area, Vmax 2.42 cm2 [facility] AoV Area, VTI 2.55 cm2 [facility] AoV Vmax 1.58 m/s [facility] LV,d 3.31 cm [facility] LV,s 2.24 cm [facility] LV Vol,d A4C 56.94 ml [facility] LV Vol,s A4C 20.36 ml [facility] MV E A ratio 0.72 [facility] MR peak grad 98.28 mmHg [facility] LA Vol 4C 26.00 ml [facility] LV SYS VOL 16.93 ml [facility] LV [place] VOL 44.34 ml [facility] LA diam s 2.70 cm [facility] LA Vol MOD A4C 25.50 ml [facility] LV SV Teich 2D 27.40 ml [facility] LVOT SI 39.85 ml/m2 [facility] AoV Cusp sep 1.73 [facility] Aortic Root 3.60 cm [facility] AoV Vmn 1.04 [facility] IVS s 2D 1.25 [facility] LA Ao Ratio 0.74 [facility] Mmode RI End [place] 2.58 [facility] Grad RI End Diat Yasir 0.80 [facility] D E excurs 1.50 [facility] E f slope 0.03 [facility] E prime lat 0.09 [facility] E fela sept 0.06 [facility] PV acc T slope 7.40 [facility] PV AT 110.73 msec [facility] RAWLS BP EF 60.00 % [facility] LA VOL 2C 41.00 ml [facility] AoV VTI 0.29 m [facility] LV EF,A2C 53.06 % [facility] LV EF,A4C 64.25 % [facility] LV EF,BP 59.77 % [facility] [place],d A2C 7.29 cm [facility] [place],d A4C 7.89 cm [facility] [place],s A2C 5.89 cm [facility] [place],s A4C 6.15 cm [facility] LV SV,A2C 29.18 % [facility] LV SV,A4C 36.58 % [facility] LV Vol,d BP 58.01 ml [facility] LV Vol,s BP 23.34 nl [facility] MR Vmax 4.96 m/s [facility] LVOT Vmn 0.91 [facility] Pt Size 154.94 [facility] Pt Wt 89.81 [facility] LVOT mean grad 3.44 mmHg [facility] LVPW s PLAX 1.29 cm [facility] MV [place] slope 3.81 m/s2 [facility] Specimen Narrative Performed At [facility] BUBBLE STUDY PERFORMED. Left ventricular systolic function i s normal. Left Ventricular ejection fraction i s 60 - 65%. Saline contrast study negative for P FO Performing Organization Address City/State/ZIP Code P brandon Number [facility] [address] [place] [address], [place] * CTA Neck W Wo Contrast (11/26/2019 4:00 PM VISUAL ARTS TEACHER) Specimen Narrative Performed At EXAMINATION: CT ANGIOGRAM NECK W WO CONTRAST RA [facility]ANT CLINICAL HISTORY: STROKE COMPARISON: None. TECHNIQUE: Neck CTA with multi-planar MIP and volu metric rendering (3D) after bolus intravenous iodinated contrast administ ration was performed. All CT images were acquired using low-d ose technique with automated exposure control. FINDINGS: Common origin of the brachiocephalic an d left common carotid arteries. Dominant left vertebral artery. Motion artifact limits evaluation of the carotid bifurcations. No hemodynamically stenos is is identified. Nonspecific consolidation and interstit ial thickening involving the right lung apex, concerning for fibrosis and/or po stsurgical change. Subpleural nodule along the right major fissure. This cou ld be further evaluated with dedicated CT imaging the chest is designated previously. No pathologically enlarged cervical lym ph nodes. Possible hyperenhancement of subcentimeter rounded left neck level 1 lymph nodes, an indeterminate feature. See dedicated CTA head report for intra cranial findings. IMPRESSION: Motion artifact at the carotid bifurcat ions. No hemodynamically significant stenosis is identified. Nonspecific consolidation and suspected volume loss within the right lung apex, possibly reflecting fibrosis. This coul d be further evaluated with dedicated CT imaging of the chest if not investigate d previously. Correlate with outside imaging if available. [id number] Procedure Note Interface, Radiology Results Incoming - 11/26/2019 4:39 PM VISUAL ARTS TEACHER EXAMINATION: CT ANGIOGRAM NECK W WO CONTRAST CLINICAL HISTORY: STROKE COMPARISON: None. TECHNIQUE: Neck CTA with multi-planar MIP and volumetric rendering (3D) after bolus intravenous iodinated contrast administration was performed. All CT images were acquired using low-dose technique with automated exposure control. FINDINGS: Common origin of the brachiocephalic and left common carotid arteries. Dominant left vertebral artery. Motion artifact limits evaluation of the carotid bifurcations. No hemodynamically stenosis is identified. Nonspecific consolidation and interstitial thickening involving the right lung apex, concerning for fibrosis and/or postsurgical change. Subpleural nodule along the right major fissure. This could be further evaluated with dedicated CT imaging the chest is designated previously. No pathologically enlarged cervical lymph nodes. Possible hyperenhancement of subcentimeter rounded left neck level 1 lymph nodes, an indeterminate feature. See dedicated CTA head report for intracranial findings. IMPRESSION: Motion artifact at the carotid bifurcations. No hemodynamically significant stenosis is identified. Nonspecific consolidation and suspected volume loss within the right lung apex, possibly reflecting fibrosis. This could be further evaluated with dedicated CT imaging of the chest if not investigated previously. Correlate with outside imaging if available. [id number] Performing Organization Address City/State/ZIP Code P brandon Number [facility] [address] [place] [address] * CTA Head W Wo Contrast (11/26/2019 3:55 PM VISUAL ARTS TEACHER) Specimen Narrative Performed At EXAMINATION: CT ANGIOGRAM HEAD W WO CONTRAST RADI ANT CLINICAL HISTORY: STROKE COMPARISON: None TECHNIQUE: Imaging of the intracrania l circulation was obtained from the skull base to the vertex during the arterial phase of enhancement. Postprocessing was performed with MIP multiplanar and 3D r econstructed images. CT imaging was performed with iterative reconstruction technique and/ or automated exposure control to reduce radiation dose. FINDINGS: No evidence of large vessel occlusion, high-grade stenosis, or aneurysm identified. Arteriosclerosis of the cav ernous and paraclinoid internal carotid arteries resulting in mild irregular na rrowing. Diminutive left posterior communicating artery. Luminal irregularity of the V4 segment of the l eft vertebral artery and basilar artery, possibly exaggerated by artifact, witho ut significant stenosis. Dominant left vertebral artery. Suspected moderate na rrowing of a proximal right A3 branch (series 556B, image 43). Major venous sinuses appear patent with in the limitation of the acquired vascular phase. IMPRESSION: No evidence of large vessel occlusion o r high-grade stenosis. [id number] Procedure Note Interface, Radiology Results Incoming - 11/26/2019 4:44 PM VISUAL ARTS TEACHER EXAMINATION: CT ANGIOGRAM HEAD W WO CONTRAST CLINICAL HISTORY: STROKE COMPARISON: None TECHNIQUE: Imaging of the intracranial circulation was obtained from the skull base to the vertex during the arterial phase of enhancement. Postprocessing was performed with MIP multiplanar and 3D reconstructed images. CT imaging was performed with iterative reconstruction technique and/or automated exposure control to reduce radiation dose. FINDINGS: No evidence of large vessel occlusion, high-grade stenosis, or aneurysm identified. Arteriosclerosis of the cavernous and paraclinoid internal carotid arteries resulting in mild irregular narrowing. Diminutive left posterior communicating artery. Luminal irregularity of the V4 segment of the left vertebral artery and basilar artery, possibly exaggerated by artifact, without significant stenosis. Dominant left vertebral artery. Suspected moderate narrowing of a proximal right A3 branch (series 556B, image 43). Major venous sinuses appear patent within the limitation of the acquired vascular phase. IMPRESSION: No evidence of large vessel occlusion or high-grade stenosis. [id number] Performing Organization Address City/State/ZIP Code P brandon Number [facility] [address] [place] [address] * CT Stroke Brain Wo Contrast (11/26/2019 3:46 PM VISUAL ARTS TEACHER) Specimen Narrative Performed At EXAMINATION: CT STROKE BRAIN WO CONTRAST [facility] CLINICAL INFORMATION: STROKE COMPARISON: None available at the time of study. TECHNIQUE: CT imaging was performed wit h contrast using iterative reconstruction technique and/or automated exposure con trol to reduce radiation dose. CONTRAST: No IV contrast administered . FINDINGS: CEREBRUM: *No evident edema, hemorrhage, mass, mi dline shift or acute infarction *There is moderate nonspecific symmetri c volume loss with extensive subcortical and periventricular hypodensities repre senting chronic ischemic white matter changes. *Chronic lacunar infarcts noted in the bilateral caudate and left thalamus *No other significant findings CEREBELLUM: *No evident edema, hemorrhage, mass, mi dline shift or acute infarction *Mild vermian and hemispheric volume lo ss. BRAINSTEM: *No evident edema, hemorrhage, mass, mi dline shift or acute infarction *No evidence of inappropriate atrophy. CSF SPACES: *Ventricles, cisterns, and sulci are en larged due to central volume loss. *No hydrocephalus, subarachnoid hemorrh age, or mass. VASCULAR: *Limited assessment shows coarse calcif ied atherosclerotic changes involving the bilateral cavernous ICAs and vertebral arteries. SKULL: *No focal lesions, mass, displaced frac tures or other visible lesion. SINUSES: *Limited views demonstrate no mass, sig nificant mucosal thickening or fluid. ORBITS: *Limited views shows a chronic right or bital blowout fracture. No mass or other visible lesion. OTHER: *No other significant findings. IMPRESSION: 1. Negative for acute intracranial abno rmalities 2. Other chronic findings as described in the body the report Findings were discussed with and acknow ledged by CASANDRA SORTO at 11/26/2019 4:06 PM who verbalized underst anding. [id number] Procedure Note Hm Interface, Radiology Results Incoming - 11/26/2019 4:09 PM VISUAL ARTS TEACHER EXAMINATION: CT STROKE BRAIN WO CONTRAST CLINICAL INFORMATION: STROKE COMPARISON: None available at the time of study. TECHNIQUE: CT imaging was performed with contrast using iterative reconstruction technique and/or automated exposure control to reduce radiation dose. CONTRAST: No IV contrast administered. FINDINGS: CEREBRUM: *No evident edema, hemorrhage, mass, midline shift or acute infarction *There is moderate nonspecific symmetric volume loss with extensive subcortical and periventricular hypodensities representing chronic ischemic white matter changes. *Chronic lacunar infarcts noted in the bilateral caudate and left thalamus *No other significant findings CEREBELLUM: *No evident edema, hemorrhage, mass, midline shift or acute infarction *Mild vermian and hemispheric volume loss. BRAINSTEM: *No evident edema, hemorrhage, mass, midline shift or acute infarction *No evidence of inappropriate atrophy. CSF SPACES: *Ventricles, cisterns, and sulci are enlarged due to central volume loss. *No hydrocephalus, subarachnoid hemorrhage, or mass. VASCULAR: *Limited assessment shows coarse calcified atherosclerotic changes involving the bilateral cavernous ICAs and vertebral arteries. SKULL: *No focal lesions, mass, displaced fractures or other visible lesion. SINUSES: *Limited views demonstrate no mass, significant mucosal thickening or fluid. ORBITS: *Limited views shows a chronic right orbital blowout fracture. No mass or other visible lesion. OTHER: *No other significant findings. IMPRESSION: 1. Negative for acute intracranial abnor malities 2. Other chronic findings as described i n the body the report Findings were discussed with and acknowledged by CASANDRA SORTO at 11/26/2019 4:06 PM who verbalized understanding. [id number] Performing Organization Address City/[facility]/ZIP Code P brandon Number HM [facility] [address] [place] [id number] * ECG 12 lead (11/26/2019 3:30 PM VISUAL ARTS TEACHER) Ventricular 91 [facility] rate Atrial rate 91 [facility] RI interval 172 [facility] QRSD interval 82 [facility] QT interval 362 [facility] QTC interval 445 [facility] P axis 1 39 [facility] QRS axis 1 11 [facility] T wave axis 22 [facility] EKG impression Normal sinus rhythm-Normal [facility] ECG-No previous ECGs available- Specimen Narrative Performed At This result has an attachment that is n ot available. Performing Organization Address [facility] Code P brandon Number [facility] MUSE [address] [place] [id number] * ECG ED Preliminary Interpretation - Not an Order (11/26/2019 3:23 PM VISUAL ARTS TEACHER) Narrative Performed At Casandra Sorto MD 020 10:10 PM ECG ED Preliminary Interpretation - Not an Order Performed by: Casandra Sorto MD Authorized by: Casandra Sorto MD ECG reviewed by ED Physician in the abs ence of a designer: yes Interpretation: Interpretation: normal Rate: ECG rate: 91 ECG rate assessment: normal Rhythm: Rhythm: sinus rhythm Ectopy: Ectopy: none QRS: QRS axis: Normal QRS intervals: Normal Conduction: Conduction: normal ST segments: ST segments: Normal T waves: T waves: normal * Partial thromboplastin time, activated (11/26/2019 3:17 PM VISUAL ARTS TEACHER) PTT 29.7 23.0 - 36.0 sec [place] Comment: SHAILA VALLE PTT therapeutic range for [facility] unfractionated heparin is 61.0-112.0 seconds which corresponds to Anti-Xa 0.3-0.7 U/ml. Specimen Blood Performing Organization Address City/[facility]/ZIP Code P brandon Number [facility] [place] [place] [address] [place] [address] PATHOLOGY AND GENOMIC MEDICINE [place] [address] * Prothrombin time with INR (11/26/2019 3:17 PM VISUAL ARTS TEACHER) Prothrombin 12.7 11.5 - 14.5 sec [place] time [facility] INR 1.0 [place] Comment: SHAILA VALLE The International Normalized [facility] Ratio (INR) is a therapeutic monitoring tool for patients who are stable on oral anticoagulant therapy. An INR of 2.0-3.0 is suggested for deep vein thrombosis/pulmonary embolism. Specimen Blood Performing Organization Address City/[facility] P brandon Number [facility] [place] [address] [place] [address] PATHOLOGY AND [facility] MEDICINE [place] [address] after 10/21/2019 Insurance Type Payer Benefit Subscriber ID Effective Phone Address Plan / Dates Group [facility] [id number] 2015-P resent [facility] [id number] 2019-P resent Advance Directives For more information, please contact: [phone] 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
--- OUTSIDE RECORDS SUMMARY | 2020-10-21 16:18 | XMS REPORT | Continuity of Care Document ---
Author Author [facility] t Organization [facility] Address [address] [place] [address] [address] [place] [address] Phone Unavailable Care Team Providers Care Pipe Line Inspector Name Role Phone VALENTINA BARNES DO PCP Macario ROUSE, Patrice Guajardo Attphys [phone] Teqwimroberto carlos Mitch HANDY Attphys VALENTINA BARNES Attphys Unavailable VALENTINA BARNES Admphys Unavailable Payers Payer Name Policy Type Policy Number Effective Date Expiration Date S blake [id number] 2015-PresentMilitary 400 2015 00:00:00 Desean Car [facility] [id number] 2015 00:00:00 [facility] Problems Condition Name Condition Details Condition Category Status Onset Date Resolution Date Last Treatment Date Treating Clinician Comments Source TIA (transient ischemic attack) TIA (transient ischemic attack) Dis ease Active 2019-11-26 00:00:00 Desean Car Severe anemia Severe anemia Disease Active 2018-04-08 00:00:00 Desean Car Altered mental status, unspecified Altered mental status, unspec ified Disease Active 2017-03-26 00:00:00 Misa Car Syncope Syncope Problem Active [facility] Allergies, Adverse Reactions, Alerts Allergy Name Allergy Type Status Severity Reaction(s) Onset Date Inacti ve Date Treating Clinician Comments Source Lorazepam Propensity to adverse reactions to drug Active Altered Mental Status 2019-11-26 00:00:00 Desean Car Codeine Propensity to adverse reactions to drug Active Itching 2019-11-26 00:00:00 Desean pederson Lorazepam Allergy to Substance Active 2018-04-12 00:00:00 [facility] Codeine Allergy to Substance Active 2018-04-12 00:00:00 [facility] Lorazepam Propensity to adverse reactions to drug Active Other (See Comments) 2017-03-26 00:00:00 Agitation, delirious Jerrellto cheryl PatYazidism Codeine Propensity to adverse reactions to drug Active 2017-03-26 00:00:00 Desean Car Family History Family Member Diagnosis Comments Start Date Stop Date Source Natural father Cancer [facility] Natural mother Diabetes [facility] Social History Social Habit Start Date Stop Date Quantity Comments Source Sex Assigned At Susan farley Y[facility]ism Cigarettes smoked current (pack per day) - Reported 00:00:00 2019-11-29 00:00:00 Desean Car Tobacco use and exposure 2019-11-29 00:00:00 2019-11-29 00:00:00 Aileen donaldson used Desean Car Alcohol intake 2019-11-29 00:00:00 2019-11-29 00:00:00 Ex-drinker (fi nding) Desean Car History of tobacco use 2009-11-26 00:00:00 Current smoker Desean Car Smoking Status Start Date Stop Date Source Former smoker 2019-11-29 00:00:00 2019-11-29 00:00:00 Desean Car Medications Ordered Medication Name Filled Medication Name Start Date Stop Da te Current Medication? Ordering Clinician Indication Dosage Frequency Signature (SIG) Comments Components Source insulin ASPART (NovoLOG Flexpen) 100 unit/mL insulin pen 2020-01-12 13:16:23 Yes 8U [id number] In ject 8 Units under the skin 3 (three) times a day before meals. Desean Car insulin GLARGINE (LANTUS SOLOSTAR) 100 unit/mL injection (pe n) 2020-01-12 13:16:23 Yes 24U QD Inject 24 Units under the ski n nightly. Desean Car traZODone (DESYREL) 100 MG tablet 2020-01-12 13:16:23 Yes 100mg QD Take 100 mg by mouth nightly as needed for sleep. Desean Car pravastatin (PRAVACHOL) 10 MG tablet 2020-01-12 13:16:23 Ye s 10mg QD Take 10 mg by mouth nightly. Desean liz melatonin 3 mg tablet 2020-01-12 13:16:23 Yes 3mg QD Take 3 mg by mouth nightly as needed for sleep. Desean liz traZODone (DESYREL) 100 MG tablet 2020-01-12 13:16:23 Yes 100mg QD Take 100 mg by mouth nightly. Desean maguire amLODIPine (NORVASC) 5 mg tablet 2020-01-12 13:16:23 Yes 5mg QD Take 5 mg by mouth daily. Desean Car lisinopril (PRINIVIL) 10 mg tablet 2020-01-12 13:16:23 Yes 10mg QD Take 10 mg by mouth daily. Desean Car metoprolol tartrate (LOPRESSOR) 50 mg tablet 2020-01-12 13:16:23 Yes 50mg QD Take 50 mg by mouth daily. Sidney Car insulin GLARGINE (LANTUS) 100 unit/mL injection (vial) 2020-01-12 13:16:23 Yes 24U QD Inject 24 Units under the skin nightly. Desean Car insulin ASPART (NovoLOG) 100 unit/mL injection 2020-01-12 13:16: 23 Yes 8U Q.[id number] Inject 8 Units under the ski n 3 (three) times a day before meals. Desean Car melatonin 5 mg capsule 2020-01-12 13:16:23 Yes 5mg QD Take 5 mg by mouth nightly as needed. Desean Car potassium 99 mg tablet 2020-01-12 13:16:23 Yes 99mg Q24H Take 99 mg by mouth daily as needed. Desean Car pravastatin (PRAVACHOL) 10 MG tablet 2019-11-29 12:59: 22 2019-11-27 00:00:00 No 10mg QD Take 10 mg by mouth daily. Desean Car aspirin (ECOTRIN) 81 MG enteric coated tablet 13-12-04 00:00:00 2019-12-28 23:59:00 No 81mg QD Take 1 tablet (81 mg total) by mouth daily for 30 days. Desean Car atorvastatin (LIPITOR) 40 MG tablet 2019-11-27 00:00:0 0 2019-12-27 23:59:00 No 40mg QD Take 1 tablet (40 mg total) by mouth nig htly for 30 days. Desean Car lisinopril (PRINIVIL,ZESTRIL) 10 mg tablet 2017-07-25 00:00:00 Yes 10mg Q.5D Take 1 tablet (10 mg total) by mouth 2 (two) times a day for 30 days. Desean Car Amlodipine Besylate 5 Mg Tablet Amlodipine Besylate 5 Mg Tablet Yes 5 Daily [facility] Insulin Glargine (Lantus 3ML Pen) 100 Units/1 Ml Inj I nsulin Glargine (Lantus 3ML Pen) 100 Units/1 Ml Inj Yes 24 Bedtime [facility] Insulin Lispro (Humalog) 100 Unit/1 Ml Cartridge Insul in Lispro (Humalog) 100 Unit/1 Ml Cartridge Yes 4 Before Meals [facility] Lisinopril 10 Mg Tablet Lisinopril 10 Mg Tablet Yes 10 Daily [facility] Metoprolol Succinate 50 Mg Tab.er.24h Metoprolol Succinate 50 Mg Ta b.er.24h Yes 50 Daily [facility] Pravastatin Sodium 10 Mg Tablet Pravastatin Sodium 10 Mg Tablet Yes [facility] Trazodone Hcl 50 Mg Tablet Trazodone Hcl 50 Mg Tablet Yes 100 Every 4 Hours [facility] Immunizations Ordered Immunization Name Filled Immunization Name Date Status Comments Source FLUZONE HIGH-DOSE PF 2019-11-27 00:00:00 Completed Desean Car Pneumococcal Conjugate 13-Valent 2019-11-27 00:00:00 Compl eted Desean Car Vital Signs Vital Name Observation Time Observation Value Comments Source Systolic blood pressure 2019-11-27 10:41:42 140 mm[Hg] Desean Car Diastolic blood pressure 2019-11-27 10:41:42 65 mm[Hg] Desean Car Heart rate 2019-11-27 10:41:42 77 /min Desean Car Body temperature 2019-11-27 10:41:42 36.5 Ariana [place] [facility] Respiratory rate 2019-11-27 10:41:42 20 /min [place] [facility] Oxygen saturation in Arterial blood by Pulse oximetry 11-27 10:41:42 99 /min Desean Car Body height 2019-11-26 15:10:00 154.9 cm Desean Car Body weight 2019-11-26 15:10:00 89.812 kg Desean Car BMI 2019-11-26 15:10:00 37.41 kg/m2 Desean Car Procedures Procedure Date / Time Performed Performing Clinician Alyssia samaniego POC GLUCOSE 2019-11-27 11:14:00 TeqwimMitch azevedo Meth odist VITAMIN B12 LEVEL 2019-11-27 10:05:00 Liliane Suggs POC GLUCOSE 2019-11-27 05:14:00 TeqwimMitch azevedo Meth odist LIPID PANEL 2019-11-27 04:46:00 Latasha Whitney HC COMPLETE BLD COUNT W/AUTO DIFF 2019-11-27 04:46:00 hCeryl Whitney COMPREHENSIVE METABOLIC PANEL 2019-11-27 04:46:00 Franc Whitney ESTIMATED GFR 2019-11-27 04:46:00 Latasha Whitney THYROID STIMULATING HORMONE 2019-11-27 04:46:00 Liliane Suggs T4, FREE 2019-11-27 04:46:00 Liliane Suggs [facility]odist TROPONIN 2019-11-27 01:20:00 TekayeimMitch azevedo odist TROPONIN 2019-11-26 22:15:00 TeMitch parkinson odist POC GLUCOSE 2019-11-26 20:07:00 TekayeimMitch azevedo Meth odist MRA NECK WO CONTRAST 2019-11-26 18:46:14 Latasha Whitney MRA HEAD WO CONTRAST 2019-11-26 18:32:28 Latasha Whitney MRI STROKE BRAIN WO CONTRAST 2019-11-26 18:11:55 Phi Whitney TROPONIN 2019-11-26 17:22:00 TeMitch parkinson Meth odist POC GLUCOSE 2019-11-26 17:22:00 TeqwimMitch azevedo Meth odist URINE CULTURE 2019-11-26 16:37:00 Latasha Whitney URINALYSIS SCREEN AND MICROSCOPY, WITH REFLEX TO CULTURE 16:37:00 Latasha Whitney TTE COMPLETE, WO CONTRAST, W AGITATED SALINE ([id number]) 2019-11 16:30:[address] ANGIOGRAM NECK W WO CONTRAST 2019-11-26 16:00:[address] ANGIOGRAM HEAD W WO CONTRAST 2019-11-26 15:55:[address] STROKE BRAIN WO CONTRAST 2019-11-26 15:46:00 Jd Whitney ECG 12-LEAD 2019-11-26 15:30:20 Latasha Whitney ECG ED PRELIMINARY INTERPRETATION 2019-11-26 15:23:57 Cheryl Whitney HC COMPLETE BLD COUNT W/AUTO DIFF 2019-11-26 15:17:00 Cheryl Whitney PARTIAL THROMBOPLASTIN TIME (PTT) 2019-11-26 15:17:00 Cheryl Whitney PROTHROMBIN TIME WITH INR 2019-11-26 15:17:00 Gibson Whitney COMPREHENSIVE METABOLIC PANEL 2019-11-26 15:17:00 Franc Whitney ESTIMATED GFR 2019-11-26 15:17:00 Latasha Whitney Bronchoscopy with biopsy 2018-04-21 00:00:00 CATRACHITO COLLINS [facility] Magnetic resonance imaging of brain without contrast 2018-03 00:00:00 KELLY SHIN [facility] Magnetic resonance angiography of head without contrast 2017 00:00:00 MARAL ACOSTA [facility] Computed tomography of chest with contrast 2018-04-14 00:00:00 MARAL ROWE [facility] Computed tomography of brain without radiopaque contrast 201 06-28-20 00:00:00 OLIVER HOLLOWAY [facility] Plan of Care Planned Activity Planned Date Details Comments Source Future Scheduled Test 2020-11-27 00:00:00 65+ PNEUMOCOCCAL V ACCINE (2 of 2 - PPSV23) [code = 65+ PNEUMOCOCCAL VACCINE (2 of 2 - PPSV23)] [facility] Test 2020-06-24 00:00:00 INFLUENZA VACCINE [code = INFLUENZA VACCINE] [facility] Future [facility]uled Test 2015-02-24 00:00:00 BREAST CANCER SCRE ENING [code = BREAST CANCER SCREENING] [facility] Future [facility]uled Test 2000 00:00:00 COLONOSCOPY SCREEN ING [code = COLONOSCOPY SCREENING] [facility] Future [facility]uled Test 2000 00:00:00 SHINGLES VACCINES (#1) [code = SHINGLES VACCINES (#1)] Desean Car Encounters Start Date/Time End Date/Time En[facility] ID Source 2018-04-14 13:33:00 2018-04-22 22:30:00 Discharged Inpatient 1 VALENTINA BARNES [facility] [id number] [facility] Results Test Description Test Time Test Comments Results Result Comments Source POC glucose 2019-11-27 11:22:11 Test Item POC glucose (test code = 63152-2) 294 mg/dL 65-99 [facility] [employer] Name: Pedro Castillo ID: [id number] Lab Interpretation (test code = 98345-1) Abnormal Desean CarVitamin B12 [id number] 10:47:21* Test Item Value Reference Range Interpretation Comments Vitamin B12 (test code = 2132-9) 482 pg/mL 211-946 Significant overlap exists between normal and deficiency states.However, most patients with deficiencies will have Serum B12 <200 pg/mL. Desean CarT4, [id number] 10:06:51* Test Item Value Reference Range Interpretation Comments T4, free (test code = 3024-7) 0.93 ng/dL 0.9-1.7 Anton MethodistThyroid stimulating [id number] 10:06:51* Test Item Value Reference Range Interpretation Comments TSH (test code = 3016-3) 3.63 0.27- 4.20 uIU/mL [place] [facility] [id number] 05:36:47* Test Item Value Reference Range Interpretation Comments Sodium (test code = 2951-2) 139 135- 148 mEq/L Potassium (test code = 2823-3) 4.3 3.5- 5.0 mEq/L Chloride (test code = 2075-0) 102 98- 112 mEq/L CO2 (test code = 8-9) 24 24- 31 mEq/L Anion gap (test code = 45739-0) 13@ANIO 7- 15 mEq/L BUN (test code = 3094-0) 20 mg/dL 8-23 Creatinine (test code = 2160-0) 1.30 mg/dL 0.5-0.9 H Glucose (test code = 2345-7) 201 mg/dL 65-99 H Calcium (test code = 09180-7) 9.9 mg/dL 8.8-10.2 Protein (test code = 2885-2) 8.2 g/dL 6.3-8.3 Rcsppnt5349.6-7.0 g/dL1 fcjx1722.4-7.6 g/dL7 months-9nvje238.1-7.3 g/dL1-2 .6-7.5 g/dL>3 rfyqk804.0-8.0 g/aQ32-7837401.3-8.3 g/dL Albumin (test code = 1751-7) 4.2 g/dL 3.5-5 A/G ratio (test code = 1759-0) 1.0 0.7-3.8 Alkaline phosphatase (test code = 6768-6) 72 U/L 35-104 AST (test code = 1920-8) 34 U/L 10-35 ALT (test code = 1742-6) 42 U/L 5-50 Total bilirubin (test code = 1974-) 0.3 mg/dL 0-1.2 Lab Interpretation (test code = 97903-0) Abnormal [place] MethodistLipid [id number] 05:36:47* Test Item Value Reference Range Interpretation Comments Cholesterol (test code = 2093-3) 160 mg/dL <200 Triglycerides (test code = 2571-8) 343 mg/dL <150 A HDL cholesterol (test code = 2085-9) 33 mg/dL >40 L LDL cholesterol (test code = 2089-1) 74 mg/dL <100 Result obtained by direct LDL measurement Lipid panel interpretation (test code = 01959-7) SeeBelow Total Cholesterol (mg/dL) <200 Desirable 200-239 Borderline-high >=240 High Triglycerides (mg/dL) <150 Normal 150-199 Borderline-high 200-499 High >=500 Very high HDL Cholesterol (mg/dL) <40 Low (male) <40 Low (female) LDL Cholesterol (mg/dL) <100 Optimal 100-129 Near or above optimal 130-159 Borderline-high 160-189 High >=190 Very high Risk Catergories that modify LDL goals.Risk Catergories LDL goal (mg/dL)CHD and CHD risk equivalent <100 (10-year risk >20%)Multiple (2+) risk factors <130 (10-year risk =<20%)0-1 risk factors <160 (<10-year risk) Defining levels of lipids in metabolic syndromeTriglycerides >=150 mg/dLHDL Cholesterol Men <40 mg/dL Women <40 mg/dL Non-HDL cholesterol is a second target for therapy in personswith high triglycerides (>=200 mg/dL) Lab Interpretation (test code = 00686-4) Abnormal [place] MethodistEstimated [id number] 05:36:47* Test Item Value Reference Range Interpretation Comments Estimated GFR (test code = 5488) 42 mL/min/1.73 m2 A Catergory Units InterpretationG1 >=90 Normal or highG2 60-89 Mildly ikifnueprI0t 45-59 Mildly to moderately fkyrvwvndS1a 30-44 Moderately to severely decreasedG4 15-29 Severely decreasedG5 <15 Kidney failureThe eGFR was calculated using the Chronic Kidney Disease Epidemiology Collaboration (CKD-EPI) equation. Interpretation is based on recommendations of the National Kidney Foundation-Kidney Disease Outcomes Quality Initiative (NKF-KDOQI) published in 2014. Lab Interpretation (test code = 70075-0) Abnormal [place] MethodistCBC with platelet and apjaoffcprfa4681-09-09 05:13:59* Test Item Value Reference Range Interpretation Comments WBC (test code = 76269-8) 7.44 4.50- 11.00 k/uL RBC (test code = 51129-4) 4.77 m/uL 4.2-5.5 HGB (test code = 718-7) 10.8 g/dL 12-16 L HCT (test code = 4544-3) 35.8 % 37-47 L MCV (test code = 787-2) 75.1 fL 82-100 L MCH (test code = 785-6) 22.6 pg 27-34 L MCHC (test code = 786-4) 30.2 g/dL 31-37 L RDW - SD (test code = 33002-2) 41.4 fL 37-55 MPV (test code = 91858-8) 12.1 fL 8.8-13.2 Platelet count (test code = 85369-5) 195 150- 400 k/uL Nucleated RBC (test code = 05758-9) 0.00 /100 WBC Neutrophils (test code = 62934-5) 53.9 % 39-69 Lymphocytes (test code = 63941-9) 34.0 % 25-45 Monocytes (test code = 28039-8) 6.6 % 0-10 Eosinophils (test code = 31279-3) 4.3 % 0-5 Basophils (test code = 01864-5) 0.9 % 0-1 Lab Interpretation (test code = 79002-7) Abnormal Anton [id number] 02:04:06* Test Item Value Reference Range Interpretation Comments Troponin (test code = 38970-5) <0.006 0-0.04 In patients suspected of having a myocardial infarction, along with all other appropriate clinical measures and actions including ECG and other diagnostics as appropriate, measure Ultra TnI at 0 hrs and at 3 hrs.Myocardial infarction VERY LIKELYThe 0 hr TnI level is > 0.10 ng/mL Levar cardial infarction LIKELYThe 0 hr TnI level is > 0.04 ng/mL and 3 hr level is increased or decreased by at least 0.020 ng/mL Myocardi al infarction VERY UNLIKELYBoth the 0 hr and 3 hr TnI levels <= 0.04 ng/mL(within normal limits) OR 0 hr is > 0.04 ng/mL and 3 hr is increased OR decreased by less than 0.020 ng/mL Desean MethodistECG 12 [id number] 21:23:22* Test Item Value Reference Range Interpretation Comments Ventricular rate (test code = 253) 91 Atrial rate (test code = 255) 91 OH interval (test code = 266) 172 QRSD interval (test code = 260) 82 QT interval (test code = 264) 362 QTC interval (test code = 265) 445 P axis 1 (test code = 267) 39 QRS axis 1 (test code = 268) 11 T wave axis (test code = 270) 22 EKG impression (test code = 273) Normal sinus rhythm-N ormal ECG-No previous ECGs available- Desean CarA Neck Wo [id number] 19:01:43Hm Interface, Radiology Results - 11/26/2019 7:04 PM CSTEXAMINATION: MRA NECK WO CONTRASTCLINICAL HISTORY: tiaCOMPARISON: None.IMAGING DEVICE: 3.0 Kenna MR. 3- D reconstructions were processed off-lineTECHNIQUE: Multiplanar and multisequence MRA imaging of the neck obtained.CONTRAST: No IV contrast adminis tered.FINDINGS: Exam is limited due to motion artifactAORTIC ARCH: Left-sided ao rtic arch with common origin of the brachiocephalic and left common carotid marcello ry. Limited views show no evident dissection, aneurysms, penetrating ulcer or c oarctation. No evidence of proximal occlusion or flow-limiting stenosis at the o stium of the supraaortic arteries.RIGHT:COMMON CAROTID ARTERY: Normal, no proxim al flow-limiting stenosis, occlusion, dissection, aneurysms, pseudoaneurysms or vascular malformations.CAROTID BIFURCATION AND ICA: Nonocclusive atherosclerotic changes resulting in less than 20% stenosis. No evidence of underlying flow-reed iting stenosis, occlusion, dissection, aneurysms, pseudoaneurysms or vascular ma lformations.VERTEBRAL ARTERY: Normal, no proximal flow-limiting stenosis, occlus ion, dissection, aneurysms, pseudoaneurysms or vascular malformations.LEFT:COMMO N CAROTID ARTERY: Normal, no proximal flow-limiting stenosis, occlusion, dissect ion, aneurysms, pseudoaneurysms or vascular malformations.CAROTID BIFURCATION AN D ICA: Partially obscured by motion artifact there is eccentric calcified vascul ar changes resulting in approximately 50% stenosis. There is distal flow reconst itution with no evidence of tandem occlusion, dissection, aneurysms or AVMsVERTE BRAL ARTERY: Normal, no proximal flow-limiting stenosis, occlusion, dissection, aneurysms, pseudoaneurysms or vascular malformations.OTHER: NoneIMPRESSION:1. Li mited exam due to motion artifact2. Calcified atherosclerotic changes in the galo ateral carotid bifurcations, within the limitations given by the above-mentioned artifact there is approximately 50% stenosis of the left internal carotid artery origin, followed by distal flow reconstitution with no evident occlusion, diss ection, aneurysms or AVMs3. Unremarkable vertebral arteries4. Common origin of t he brachiocephalic and left common carotid [id number] MethodistMRA Head Wo [id number] 18:46:12Hm Interface, Radiology Results [facility] - 11/26/2019 6:49 PM CSTEXAMINATION: MRA HEAD WO CONTRASTINCLUDING 3D MIP RECONSTRUCTED IMAGES.CLINICAL HISTORY: tiaCOMPARISON: CTA brain November 26, 2019FINDINGS: There is a mild stenosis in the [...] abnormality in this location on the CT angiogram.There is no abnormality demonstrated in the anterior intracranial circulation. The A1 segment on the left is slightly hypoplastic.There is a dominant prominent distal left vertebral artery with hypoplastic distal right vertebral artery. There is an appearance of stenosis at the junction of the right vertebral artery with the basilar artery. This is not present on the prior study and may be artifactual.There is mild smooth luminal narrowing in the V4 segment on the le ft. There is no significant abnormality in the basilar artery except for mild to rtuous looping of the vertebral basilar junction towards the left. There is an a ppearance of atherosclerotic luminal irregularity with at least mild stenosis in the P2 segment on the left. There is no other abnormality in the posterior circ ulation.IMPRESSION:Mild stenosis in the carotid siphon on the left and to a less er be on the right.Atherosclerotic luminal irregularity in the posterior cerebra l artery on the left.There is a question of stenosis at the junction of the righ t vertebral artery with the basilar artery which may be artifactual. Otherwise t he findings correlate with the prior study.[id number] N. [facility] Stroke Brain Wo [id number] 18:24:48Hm Interface, Radiology Results - 11/26/2019 6:27 PM CSTEXAMINATION: MRI STROKE BRAIN WO CONTRASTCLINICAL HISTORY: TIA initial examCOMPARISON: CT scan dated 11/26/2019IMAGING DEVICE: 3.0 Kenna MR. 3-D reconstructions were processed off- lineTECHNIQUE: Multiplanar and multisequence MRI imaging of the brain ob tained.CONTRAST: No IV contrast administered.FINDINGS:CEREBRUM:*No evident emily a, hemorrhage, mass, midline shift or acute infarction*There is moderate symmetr ic cerebral volume loss with subsequent enlargement of the lateral ventricles an d subarachnoid spaces.*Extensive subcortical and periventricular T2 hyperintensi ties representing chronic microangiopathic changes.*Chronic lacunar and perforat ing infarcts seen in the mehta radiata bilaterally in addition to enlarged sube pendymal perivascular spaces in addition to the left lateral ventricle atrium an d in the caudate nuclei bilaterallyCEREBELLUM: *No evident edema, hemorrhage, ma ss, midline shift or acute infarction*Moderate volume loss.BRAINSTEM: *No eviden t edema, hemorrhage, mass, midline shift or acute infarction*No evidence of inap propriate atrophy.CSF SPACES: *Ventricles, cisterns, and sulci are enlarged.*N o hydrocephalus, subarachnoid hemorrhage, or mass.VASCULAR: *Limited assessmen t with no evident abnormalities of [place] and dural sinuses. SKULL: *No focal lesions, mass, displaced fractures or other visible lesion.SINUSES: * Limited views demonstrate no mass, significant mucosal thickening or fluid.ORBIT S: *Limited views shows chronic right orbital blowout fracture. No focal lesio n fracture or other visible lesion.OTHER: *Moderate mucosal thickening seen in t he bilateral mastoid air cellsIMPRESSION:1. Negative exam for acute intracranial hemorrhage, new infarct, mass effect, midline shift, hydrocephalus or brain her niation2. Other chronic findings described in the body the report appears unchan ged when compared with previous [id number] MethodistUrine culture 2019-11-26 17:10:37* Test Item Value Reference Range Interpretation Comments Urine culture (test code = 6511443) SEE COMMENT Bacteriuria screen negative. Anton MethodistUrinalysis screen and microscopy, with reflex to culture 2019-11-26 17:10:37* Test Item Value Reference Range Interpretation Comments Specimen site (test code = 1393262) Clean catch Color, UA (test code = 5778-6) Straw Appearance, UA (test code = 5767-9) Clear Specific gravity, UA (test code = 5811-5) 1.020 1.001-1.035 pH, UA (test code = 5803-2) 7.0 5.0-8.5 Protein, UA (test code = 74436-9) 1+ Negative A Glucose, UA (test code = 85447-2) 3+ Negative A Ketones, UA (test code = 2514-8) Negative Negative Bilirubin, UA (test code = 5770-3) Negative Negative Blood, UA (test code = 5794-3) Negative Negative Nitrite, UA (test code = 5802-4) Negative Negative Urobilinogen, UA (test code = 11572-4) Negative <2.0 Leukocyte esterase, UA (test code = 5799-2) Negative Negative Epithelial cells, UA (test code = 5787-7) None seen Few /HPF WBC, UA (test code = 5821-4) None seen 0- 4 /HPF RBC, UA (test code = 47719-2) 0-5 0- 5 /HPF Bacteria, UA (test code = 15156-3) Few None seen Yeast, UA (test code = 75826-3) None seen Yeast with pseudohyphae, UA (test code = 95137-6) None seen Lab Interpretation (test code = 83376-4) Abnormal Anton MethodistEchocardiogram complete w contrast and 3D if [id number] 17:06:32* Test Item Value Reference Range Interpretation Comments Velocity Ratio (V1/V2) (test code = 4689) 0.75 m/s IVS,d (test code = 0729710351) 1.03 cm Ao root annulus (test code = 1964497729) 3.63 cm EF (test code = 3203003997) 61.82 % LVPWD,d (test code = 6197905405) 1.08 cm AoV Mean PG (test code = 9001838978) 4.86 mmHg AV LVOT peak gradient (test code = 4056355545) 5.62 mmHg MV valve area p 1/2 method (test code = 0241667202) 5.90 cm2 E/A ratio (test code = 2090626573) 0.72 E wave decelartion time (test code = 0939610353) 194.75 msec LVOT Diam,S (test code = 6975760263) 2.02 cm LVOT area (test code = 2557386643) 3.20 cm2 LVOT Vmax (test code = 7385534737) 1.19 m/s LVOT VTI (test code = 0891236852) 0.23 m AoV Peak PG (test code = 0779024295) 9.95 mmHg MV Peak E Yasir (test code = 0847445405) 0.74 m/s MV stenosis pressure 1/2 time (test code = 2298253867) 37.29 ms MV Peak A Yasir (test code = 5145692088) 1.03 m/s LV Vol,s A2C (test code = 6403744036) 25.81 mL LV Vol,d A2C (test code = 4255116591) 54.99 mL AoV Area, Vmax (test code = 5149199226) 2.42 cm2 AoV Area, VTI (test code = 3459944910) 2.55 cm2 AoV Vmax (test code = 8573311800) 1.58 m/s LV,d (test code = 6772333504) 3.31 cm LV,s (test code = 5537541934) 2.24 cm LV Vol,d A4C (test code = 2709258947) 56.94 ml LV Vol,s A4C (test code = 6474067360) 20.36 ml MV E A ratio (test code = 0775443744) 0.72 MR peak grad (test code = 5803110376) 98.28 mmHg LA Vol 4C (test code = 8030273123) 26.00 ml LV SYS VOL (test code = 1837839655) 16.93 ml LV HARRINGTON VOL (test code = 7306515628) 44.34 ml LA diam s (test code = 7302219438) 2.70 cm LA Vol MOD A4C (test code = 6540765560) 25.50 ml LV SV Teich 2D (test code = 4478269161) 27.40 ml LVOT SI (test code = 7833181255) 39.85 ml/m2 AoV Cusp sep (test code = 7502497803) 1.73 Aortic Root (test code = 3969991270) 3.60 cm AoV Vmn (test code = 3047978898) 1.04 IVS s 2D (test code = 7109629370) 1.25 LA Ao Ratio Mmode (test code = 1100505919) 0.74 OH End Harrington Grad (test code = 5087979117) 2.58 OH End Diat Yasir (test code = 7401320327) 0.80 D E excurs (test code = 0204889791) 1.50 E f slope (test code = 8821743425) 0.03 E prime lat (test code = 3331202384) 0.09 E fela sept (test code = 6894486478) 0.06 PV acc T slope (test code = 1227443540) 7.40 PV AT (test code = 5452151558) 110.73 msec RAWLS BP EF (test code = 1774298881) 60.00 % LA VOL 2C (test code = 3748435948) 41.00 ml AoV VTI (test code = 8614095490) 0.29 m LV EF,A2C (test code = 5002697808) 53.06 % LV EF,A4C (test code = 9922101516) 64.25 % LV EF,BP (test code = 8665004068) 59.77 % Hany Goodrich,d A2C (test code = 7405626423) 7.29 cm Hany Goodrich,d A4C (test code = 5500118477) 7.89 cm Hany Goodrich,s A2C (test code = 4272710251) 5.89 cm Hany Goodrich,s A4C (test code = 9882431240) 6.15 cm LV SV,A2C (test code = 9692896878) 29.18 % LV SV,A4C (test code = 1405994348) 36.58 % LV Vol,d BP (test code = 4457108676) 58.01 ml LV Vol,s BP (test code = 5362442396) 23.34 nl MR Vmax (test code = 5992531482) 4.96 m/s LVOT Vmn (test code = 0807354447) 0.91 Pt Size (test code = 6166025266) 154.94 Pt Wt (test code = 4013465442) 89.81 LVOT mean grad (test code = 8425328576) 3.44 mmHg LVPW s PLAX (test code = 8817069727) 1.29 cm MV Decel slope (test code = 9505692936) 3.81 m/s2 MAYELIN (test code = MAYELIN) BUBBLE STUDY PERFORMED. Left ventricular systolic function is normal. Left Ventricular ejection fraction is 60 - 65%. Saline contrast study negative for PFO [facility] centerCTJustine Head W Wo Xxxwnpba5621-24-82 16:41:17Hm Interface, Radiology Results - 11/26/2019 4:44 PM CSTEXAMINATION: CT ANGIOGRAM HEAD W WO CONTRASTCLINICAL HISTORY: STROKECOMPARISON: NoneTECHNIQUE: Imaging of the intracranial circulation was obtained from the skull base to the vertex during the arterial phase of enhancement. Postprocessing was performed with MIP multiplanar and 3D reconstructed images. CT imaging was performed with iterative reconstruction technique and/or automated exposure control to reduce radiation dose.FINDINGS:No evidence of large vessel occlusion, high-grade steno sis, or aneurysm identified. Arteriosclerosis of the cavernous and paraclinoid i nternal carotid arteries resulting in mild irregular narrowing. Diminutive left posterior communicating artery. Luminal irregularity of the V4 segment of the le ft vertebral artery and basilar artery, possibly exaggerated by artifact, withou t significant stenosis. Dominant left vertebral artery. Suspected moderate narro wing of a proximal right A3 branch (series 556B, image 43).Major venous sinuses appear patent within the limitation of the acquired vascular phase.IMPRESSION:No evidence of large vessel occlusion or high-grade stenosis.[id number] MethodistCTA Neck W Wo Bxyfjywm9045-37-65 16:36:39Hm Interface, Radiology Results 11/26/2019 4:39 PM CSTEXAMINATION: CT ANGIOGRAM NECK W WO CONTRASTCLINICAL HISTORY: STROKECOMPARISON: None.TECHNIQUE:Neck CTA with multi-planar MIP and volumetric rendering (3D) after bolus intravenous iodinated contrast administration was performed.All CT images were acquired using low-dose technique with automated exposure control.FINDINGS:Common origin of the brachiocephalic and left common carotid arteries. Dominant left vertebral artery. Motion artifact limits evaluation of the carotid bifurcations. No hemodynamically stenosis is identified.Nonspecific consolidation and interstitia l thickening involving the right lung apex, concerning for fibrosis and/or posts urgical change. Subpleural nodule along the right major fissure. This could be f urther evaluated with dedicated CT imaging the chest is designated previously.No pathologically enlarged cervical lymph nodes. Possible hyperenhancement of subc entimeter rounded left neck level 1 lymph nodes, an indeterminate feature.See de dicated CTA head report for intracranial findings.IMPRESSION:Motion artifact at the carotid bifurcations. No hemodynamically significant stenosis is identified. Nonspecific consolidation and suspected volume loss within the right lung apex, possibly reflecting fibrosis. This could be further evaluated with dedicated CT imaging of the chest if not investigated previously. Correlate with outside imag ing if available.[id number] MethodistCT Stroke Brain Wo Contrast 2019-11-26 16:06:53Hm Interface, Radiology Results 11/26/2019 4:09 PM CSTEXAMINATION: CT STROKE BRAIN WO CONTRASTCLINICAL INFORMATION: STROKECOMPARISON: None available at the time of study.TECHNIQUE: CT imaging was performed with contrast using iterative reconstruction technique and/or automated exposure control to reduce radiation dose.CONTRAST: No IV contrast administered.FINDINGS:CEREBRUM:*No evident edema, hemorrhage, mass, midline shift or acute infarction*There is moderate nonspecific symmetric volume loss with extensive subcortical and periventricular hypodensities representing chronic ischemic white matter changes.*Chronic lacunar infarcts noted in the bilateral caudate and left thalamus*No other significant findingsCEREBELLUM: *No evident edema, hemorrhage, mass, midline shift or acute infarction*Mild vermian and hemispheric volume loss.BRAINSTEM: *No evident edema, hemorrhage, mass, midline shift or acute infarction*No evidence of inappropriate atrophy.CSF SPACES: *Ventricles, cisterns, and sulci are enlarged due to central volume loss.*No hydrocephalus, subarachnoid hemorrhage, or mass.VASCULAR: *Limited assessment shows coarse calcified atherosclerotic changes involving the bilateral cavernous ICAs and vertebral arteries. SKULL: *No focal lesions, mass, displaced fractures or other visible lesion.SINUSES: *Limited views demon strate no mass, significant mucosal thickening or fluid.ORBITS: *Limited views shows a chronic right orbital blowout fracture. No mass or other visible lesion .OTHER: *No other significant findings.IMPRESSION:1. Negative for acute intracra nial abnormalities2. Other chronic findings as described in the body the reportF indings were discussed with and acknowledged by LATASHA WHITNEY at 11/26/19 20 4:06 PM who verbalized understanding. [id number] Y[facility] Prothrombin time with [id number] 15:47:07* Test Item Value Reference Range Interpretation Comments Prothrombin time (test code = 5902-2) 12.7 11.5- 14.5 sec INR (test code = 70744-3) 1.0 Th e International Normalized Ratio (INR) is a therapeutic monitoring tool for patients who are stable on oral anticoagulant therapy. An INR of 2.0-3.0 is suggested for deep vein thrombosis/pulmonary embolism. Desean CarPartial thromboplastin time, pvgndydyt0659-86-23 15:47:07* Test Item Value Reference Range Interpretation Comments PTT (test code = 55444-1) 29.7 23.0- 36.0 sec PTT therapeutic range for unfractionated heparin is61.0-112.0 seconds which corresponds to Anti-Xa0.3-0.7 U/ml. [facility] ED Preliminary Interpretation - Not an Xxrvy2047-91-15 15:23:57Latasha Whitney MD 11/26/2019 10:10 [facility] ED Preliminary Interpretation - Not an OrderPerformed by: Latasha Whitney MDAuthorized by: Latasha Whitney MD ECG reviewed by ED Physician in the absence of a warehouse production worker: yes Interpretation: Interpretation: normal Rate: ECG rate: 91 ECG rate assessment: normal Rhythm: Rhythm: sinus rhythm Ectopy: Ectopy: none QRS: QRS axis: Normal QRS intervals: NormalConduction: Conduction: normal ST segments: ST segments: NormalT waves: T waves: normal [facility] Heodjnv9653-22-33 20:29:00* Test Item Value Reference Range Interpretation Comments Bedside Glucose (test code = 14973-4) 164 70-120 H Meter ID: [id number] [facility]als of [facility] CampusPlatelet Estimate 2018-04-22 09:31:00* Test Item Value Reference Range Interpretation Comments Platelet Estimate (test code = 57238-0) ADEQUATE [facility] CampusPlatelet Morphology Dzpajss4029-82-51 09:31:00* Test Item Value Reference Range Interpretation Comments Platelet Morphology Comment (test code = 17279-5) FEW LARGE [facility] CampusHypochromasia2018-05-30 09:31:00* Test Item Value Reference Range Interpretation Comments Hypochromasia (test code = 728-6) SLIGHT [facility] CampusPoikilocytosis2018-05-30 09:31:00* Test Item Value Reference Range Interpretation Comments Poikilocytosis (test code = 779-9) SLIGHT [facility] CampusAnisocytosis2018-05-30 09:31:00* Test Item Value Reference Range Interpretation Comments Anisocytosis (test code = 702-1) MODE [facility] CampusOvalocytes2018-05-30 09:31:00* Test Item Value Reference Range Interpretation Comments Ovalocytes (test code = 774-0) FEW [facility] CampusRed Cell Morphology Bqoqdrh2748-92-84 09:31:00* Test Item Value Reference Range Interpretation Comments Red Cell Morphology Comment (test code = 6742-1) ABNORMAL [facility] Centerodium Voded4094-16-52 06:46:00* Test Item Value Reference Range Interpretation Comments Sodium Level (test code = 2951-2) 135 136-145 L [facility] CampusPotassium Rjpaj8414-60-00 06:46:00* Test Item Value Reference Range Interpretation Comments Potassium Level (test code = 2823-3) 3.8 3.5-5.1 [facility] CampusChloride Jshgg8795-31-79 06:46:00* Test Item Value Reference Range Interpretation Comments Chloride Level (test code = 2075-0) 105 98-107 [facility] CampusCarbon Dioxide Owwcg3361-18-78 06:46:00* Test Item Value Reference Range Interpretation Comments Carbon Dioxide Level (test code = 2028-9) 22 22-29 [facility] CampusAnion Zak1828-48-71 06:46:00* Test Item Value Reference Range Interpretation Comments Anion Gap (test code = 25161-3) 11.8 8-16 [facility] CampusBlood Urea Tggesgco7287-82-07 06:46:00* Test Item Value Reference Range Interpretation Comments Blood Urea Nitrogen (test code = 3094-0) 12 7-26 [facility] CampusCreatinine2018-05-30 06:46:00* Test Item Value Reference Range Interpretation Comments Creatinine (test code = 2160-0) 0.68 0.57-1.11 [facility] CampusBUN/Creatinine Xvuwr6747-64-26 06:46:00* Test Item Value Reference Range Interpretation Comments BUN/Creatinine Ratio (test code = 3097-3) 18 6-25 [facility] CampusEstimat Glomerular Filtration Rate 2018-04-22 06:46:00* Test Item Value Reference Range Interpretation Comments Estimat Glomerular Filtration Rate (test code = 79487-1) 60- >60 Ranges were taken from the National Kidney Disease Education Program and the [facility] Kidney Foundation literature.Reference ranges:60 or greater: Dwfmpe25-89 ( for 3 consecutive months): Chronic kidney disease 15 or less: Kidney failureThe Hospitals of Providence [facility] CampusGlucose Yjsbi5140-79-95 06:46:00* Test Item Value Reference Range Interpretation Comments Glucose Level (test code = ANB6135) 95 74-118 [facility] CampusCalcium Lzbip8155-74-94 06:46:00* Test Item Value Reference Range Interpretation Comments Calcium Level (test code = 20612-1) 9.0 8.4-10.2 [facility] CampusMagnesium Qmdeg8880-01-92 06:46:00* Test Item Value Reference Range Interpretation Comments Magnesium Level (test code = 37713-1) 2.0 1.3-2.1 [facility] CampusWhite Blood Xpclg9755-01-14 06:26:00* Test Item Value Reference Range Interpretation Comments White Blood Count (test code = 6690-2) 4.01 4.8-10.8 L [facility] CampusRed Blood Sicwp1846-71-50 06:26:00* Test Item Value Reference Range Interpretation Comments Red Blood Count (test code = 789-8) 4.57 3.6-5.1 [facility] CampusHemoglobin2018-05-30 06:26:00* Test Item Value Reference Range Interpretation Comments Hemoglobin (test code = 57560-6) 9.9 12.0-16.0 L [facility] CampusHematocrit2018-05-30 06:26:00* Test Item Value Reference Range Interpretation Comments Hematocrit (test code = 4544-3) 33.2 34.2-44.1 L [facility] CampusMean Corpuscular Anvhuq9071-74-99 06:26:00* Test Item Value Reference Range Interpretation Comments Mean Corpuscular Volume (test code = 787-2) 72.6 81-99 L [facility] CampusMean Corpuscular Hqihkoakar1503-98-84 06:26:00* Test Item Value Reference Range Interpretation Comments Mean Corpuscular Hemoglobin (test code = 785-6) 21.7 28-32 L [facility] CampusMean Corpuscular Hemoglobin Concent 2018-04-22 06:26:00* Test Item Value Reference Range Interpretation Comments Mean Corpuscular Hemoglobin Concent (test code = 786-4) 29.8 31-35 L [facility] CampusRed Cell Distribution Ogouh7556-73-56 06:26:00* Test Item Value Reference Range Interpretation Comments Red Cell Distribution Width (test code = 39664-4) 33.0 11.7 -14.4 H [facility] CampusPlatelet Trlev0605-24-49 06:26:00* Test Item Value Reference Range Interpretation Comments Platelet Count (test code = 777-3) 167 140-360 [facility] CampusNeutrophils (%) (Auto)2018-04-22 06:26:00 * Test Item Value Reference Range Interpretation Comments Neutrophils (%) (Auto) (test code = 43440-7) 59.1 38.7-80.0 [facility] CampusLymphocytes (%) (Auto)2018-04-22 06:26:00 * Test Item Value Reference Range Interpretation Comments Lymphocytes (%) (Auto) (test code = 736-9) 27.7 18.0-39.1 [facility] CampusMonocytes (%) (Auto)2018-04-22 06:26:00* Test Item Value Reference Range Interpretation Comments Monocytes (%) (Auto) (test code = 5905-5) 9.5 4.4-11.3 [facility] CampusEosinophils (%) (Auto)2018-04-22 06:26:00 * Test Item Value Reference Range Interpretation Comments Eosinophils (%) (Auto) (test code = 713-8) 2.7 0.0-6.0 [facility] CampusBasophils (%) (Auto)2018-04-22 06:26:00* Test Item Value Reference Range Interpretation Comments Basophils (%) (Auto) (test code = 706-2) 0.5 0.0-1.0 [facility] CampusIM GRANULOCYTES %2018-04-22 06:26:00* Test Item Value Reference Range Interpretation Comments IM GRANULOCYTES % (test code = IM GRANULOCYTES %) 0.5 0.0- 1.0 [facility] CampusNeutrophils # (Auto)2018-04-22 06:26:00* Test Item Value Reference Range Interpretation Comments Neutrophils # (Auto) (test code = 751-8) 2.4 2.1-6.9 [facility] CampusLymphocytes # (Auto)2018-04-22 06:26:00* Test Item Value Reference Range Interpretation Comments Lymphocytes # (Auto) (test code = 48732-0) 1.1 1.0-3.2 [facility] CampusMonocytes # (Auto)2018-04-22 06:26:00* Test Item Value Reference Range Interpretation Comments Monocytes # (Auto) (test code = 742-7) 0.4 0.2-0.8 [facility] CampusEosinophils # (Auto)2018-04-22 06:26:00* Test Item Value Reference Range Interpretation Comments Eosinophils # (Auto) (test code = 711-2) 0.1 0.0-0.4 [facility] CampusBasophils # (Auto)2018-04-22 06:26:00* Test Item Value Reference Range Interpretation Comments Basophils # (Auto) (test code = 704-7) 0.0 0.0-0.1 [facility] CampusAbsolute Immature Granulocyte (auto 2018-04-22 06:26:00* Test Item Value Reference Range Interpretation Comments Absolute Immature Granulocyte (auto (symone t code = Absolute Immature Granulocyte (auto) 0.02 0-0.1 [facility] Shfjugcfsf2144-44-72 11:44:00* Test Item Value Reference Range Interpretation Comments CSF Appearance (test code = 64044-9) CLEAR CLEAR [facility] WorthF Omprp7727-87-10 11:44:00* Test Item Value Reference Range Interpretation Comments CSF Color (test code = 67232-7) COLORLESS COLORLESS [facility] Cell Count Tube #2018-04-21 11:44:00 * Test Item Value Reference Range Interpretation Comments CSF Cell Count Tube # (test code = 66475-3) 2 [facility] RTP5467-57-77 11:44:00* Test Item Value Reference Range Interpretation Comments CSF WBC (test code = 806-0) 0 0-5 [facility]F POY5171-23-64 11:44:00* Test Item Value Reference Range Interpretation Comments CSF RBC (test code = 68287-3) 1 0-10 [facility] Ptesset2784-80-71 11:39:00* Test Item Value Reference Range Interpretation Comments CSF Glucose (test code = 2342-4) 64 40-70 [facility] Total Rfyzidq8186-58-94 11:39:00* Test Item Value Reference Range Interpretation Comments CSF Total Protein (test code = 2880-3) 51.9 15-40 H [facility] CampusLarge Issvqmkbx7802-11-33 08:01:00* Test Item Value Reference Range Interpretation Comments Large Platelets (test code = 5908-9) FEW [facility] CampusTriglycerides Bxvqh7620-18-77 07:09:00* Test Item Value Reference Range Interpretation Comments Triglycerides Level (test code = 2571-8) 191 0-149 H [facility] CampusCholesterol Vwapc1229-13-54 07:09:00* Test Item Value Reference Range Interpretation Comments Cholesterol Level (test code = 2093-3) 93 0-199 Less than 200 mg/dL Low Yfrk092 - 239 mg/dL Borderline Sqxz249 m g/dl and greater High Risk [facility] CampusLDL Bhwxccegutk7688-82-35 07:09:00* Test Item Value Reference Range Interpretation Comments LDL Cholesterol (test code = 2089-1) 43 60-130 L [facility] CampusHDL Ccznbucxusb8666-58-08 07:09:00* Test Item Value Reference Range Interpretation Comments HDL Cholesterol (test code = 2085-9) 12 40-60 L [facility] CampusCholesterol/HDL Yooiz3020-68-72 07:09:00 * Test Item Value Reference Range Interpretation Comments Cholesterol/HDL Ratio (test code = 9830-1) 7.8 3.0-3.6 H [facility] CampusMicrocytosis2018-05-27 11:30:00* Test Item Value Reference Range Interpretation Comments Microcytosis (test code = 741-9) SLIGHT [facility] CampusBlood Floivuc3306-25-68 10:10:00* Test Item Value Reference Range Interpretation Comments Blood Culture (test code = 09431021) NO GROWTH AFTER 5 DAYS, FINAL REPORT [facility] CampusDifferential Total Cells Counted 2018-04-18 10:25:00* Test Item Value Reference Range Interpretation Comments Differential Total Cells Counted (test code = Differen tial Total Cells Counted) 100 [facility] CampusNeutrophils % (Manual)2018-04-18 10:25:00 * Test Item Value Reference Range Interpretation Comments Neutrophils % (Manual) (test code = 50216-2) 64 40-74 [facility] CampusLymphocytes % (Manual)2018-04-18 10:25:00 * Test Item Value Reference Range Interpretation Comments Lymphocytes % (Manual) (test code = 737-7) 24 19-48 [facility] CampusMonocytes % (Manual)2018-04-18 10:25:00* Test Item Value Reference Range Interpretation Comments Monocytes % (Manual) (test code = 744-3) 4 3.4-9.0 [facility] CampusEosinophils % (Manual)2018-04-18 10:25:00 * Test Item Value Reference Range Interpretation Comments Eosinophils % (Manual) (test code = 714-6) 4 0-7 [facility] CampusReactive Somrsieabsp9658-13-67 10:25:00* Test Item Value Reference Range Interpretation Comments Reactive Lymphocytes (test code = 20214-6) 4 [facility] CampusHerpes Simplex Virus I DNA (PCR) 2018-04-17 21:46:00* Test Item Value Reference Range Interpretation Comments Herpes Simplex Virus I DNA (PCR) (test code = 25933-2) Negative Negative [facility] CampusHerhu [facility] Simplex Virus II DNA (PCR) 2018-04-17 21:46:00* Test Item Value Reference Range Interpretation Comments Herpes Simplex Virus II DNA (PCR) (test code = 60501-2) Negative Negative This test was developed and its performance characteristicsdetermined by [employer]. It has not been clearedor approved by the U.S. Food and Drug Admi nistration. TheA has determined that such clearance or approval is notnecessar y. This test is used for clinical purposes. Itshould not be regarded as investig ational or research.Performed at: [address] [place], [place] [id number] Director: Sherman Souza MD, Phone: [phone] Hospitals of [facility] CampusArterial Blood uE0328-46-85 03:25:00* Test Item Value Reference Range Interpretation Comments Arterial Blood pH (test code = 2744-1) 7.43 7.31-7.41 H [facility] CampusArterial Blood Partial Pressure CO2 2018-04-17 03:25:00* Test Item Value Reference Range Interpretation Comments Arterial Blood Partial Pressure CO2 (test code = 2018-) 33 41-51 L [facility] CampusArterial Blood Partial Pressure O2 2018-04-17 03:25:00* Test Item Value Reference Range Interpretation Comments Arterial Blood Partial Pressure O2 (test code = 2019-06) 80 80-105 [facility] CampusArterial Blood YMD49619-79-08 03:25:00* Test Item Value Reference Range Interpretation Comments Arterial Blood HCO3 (test code = 1960-4) 22 23-28 L [facility] CampusArterial Blood Base Bbzggk4235-27-56 03:25:00* Test Item Value Reference Range Interpretation Comments Arterial Blood Base Excess (test code = 1925-7) -2.0 -2-3 [facility] CampusArterial Blood Oxygen Saturation 2018-04-17 03:25:00* Test Item Value Reference Range Interpretation Comments Arterial Blood Oxygen Saturation (test code = 2708-6) 96.0 95-98 Pt on room air.[facility] CampusBlast Cells %2018-04-16 12:41:00* Test Item Value Reference Range Interpretation Comments Blast Cells % (test code = 65944-5) 1 [facility] CampusBurr Zrhta1237-95-97 12:41:00* Test Item Value Reference Range Interpretation Comments Madison Cells (test code = 7790-9) SLIGHT [facility] CampusElliptocytes2018-05-24 12:41:00* Test Item Value Reference Range Interpretation Comments Elliptocytes (test code = 06920-9) SLIGHT [facility] CampusVancomycin Level Nyqwjh0450-13-08 15:25:00* Test Item Value Reference Range Interpretation Comments Vancomycin Level Trough (test code = 4092-3) 7.3 5.0-10.0 [facility]Basophils % (Manual)2018-04-15 08:25:00* Test Item Value Reference Range Interpretation Comments Basophils % (Manual) (test code = 00692-6) 1 0-1.5 [facility] CampusTear Drop Vmlio0497-55-10 08:25:00* Test Item Value Reference Range Interpretation Comments Tear Drop Cells (test code = 7791-7) FEW [facility] CampusUrine UVL3836-52-30 10:55:00* Test Item Value Reference Range Interpretation Comments Urine WBC (test code = 5821-4) 0-5 0-5 [facility] CampusUrine AOB2446-46-37 10:55:00* Test Item Value Reference Range Interpretation Comments Urine RBC (test code = 24515-5) 0-5 0-5 [facility] CampusUrine Rkgjqsso2858-94-96 10:55:00* Test Item Value Reference Range Interpretation Comments Urine Bacteria (test code = 70342-2) NONE NONE [facility] CampusUrine Epithelial Ajovf2352-71-82 10:55:00 * Test Item Value Reference Range Interpretation Comments Urine Epithelial Cells (test code = 36487-6) RARE NONE [facility] CampusUrine Hyaline Qryzh1550-70-95 10:55:00* Test Item Value Reference Range Interpretation Comments Urine Hyaline Casts (test code = 75769-8) 2-5 0-1 H [facility] CampusUrine Coarse Granular Vrtft2955-55-04 10:55:00* Test Item Value Reference Range Interpretation Comments Urine Coarse Granular Casts (test code = 32282-5) 1-5 >0 H [facility] CampusUrine Dxsqy3547-16-25 10:43:00* Test Item Value Reference Range Interpretation Comments Urine Color (test code = 5778-6) YELLOW YELLOW [facility] CampusUrine Etuxdqg0148-87-32 10:43:00* Test Item Value Reference Range Interpretation Comments Urine Clarity (test code = 13774-6) SL CLOUDY CLEAR [facility] CampusUrine Specific Xgznkag9134-64-48 10:43:00 * Test Item Value Reference Range Interpretation Comments Urine Specific [place] (test code = 5811-5) 1.020 1.010-1.02 5 [facility] CampusUrine oB5303-91-13 10:43:00* Test Item Value Reference Range Interpretation Comments Urine pH (test code = 69684-3) 7 5-7 [facility] Leukocyte Kbfsycfo9390-47-15 10:43:00* Test Item Value Reference Range Interpretation Comments Urine Leukocyte Esterase (test code = 5799-2) NEGATIVE NEGATIVE [facility] CampusUrine Seokbdb7128-20-63 10:43:00* Test Item Value Reference Range Interpretation Comments Urine Nitrite (test code = 97763-7) NEGATIVE NEGATIVE [facility] CampusUrine Tysmhxu1864-44-50 10:43:00* Test Item Value Reference Range Interpretation Comments Urine Protein (test code = 5804-0) 3+ NEGATIVE H [facility] CampusUrine Glucose (UA)2018-04-14 10:43:00* Test Item Value Reference Range Interpretation Comments Urine Glucose (UA) (test code = 2349-9) NEGATIVE NEGATIVE [facility] CampusUrine Dnjlnry1889-95-73 10:43:00* Test Item Value Reference Range Interpretation Comments Urine Ketones (test code = 69591-9) NEGATIVE NEGATIVE [facility] CampusUrine Nbweoiticuad9463-08-64 10:43:00* Test Item Value Reference Range Interpretation Comments Urine Urobilinogen (test code = 98052-9) 0.2 0.2-1 [facility] CampusUrine Bngmrulka7016-47-12 10:43:00* Test Item Value Reference Range Interpretation Comments Urine Bilirubin (test code = 1978-6) NEGATIVE NEGATIVE [facility] CampusUrine Wefki2882-62-43 10:43:00* Test Item Value Reference Range Interpretation Comments Urine Blood (test code = 14011-8) TRACE NEGATIVE H [facility] CampusVitamin B12 Ssuxz1886-94-58 07:55:00* Test Item Value Reference Range Interpretation Comments Vitamin B12 Level (test code = 14328-5) 206 213-816 L [facility] CampusFolate2018-05-22 07:55:00* Test Item Value Reference Range Interpretation Comments Folate (test code = 2284-8) 15.2 7.0-15.4 [facility] CampusThyroid Stimulating Hormone (TSH) 2018-04-14 07:40:00* Test Item Value Reference Range Interpretation Comments Thyroid Stimulating Hormone (TSH) (test code = 67630-8) 1.343 0.350-4.940 [facility] CampusFerritin2018-05-22 07:17:00* Test Item Value Reference Range Interpretation Comments Ferritin (test code = 2276-4) 78.65 4.63-204.00 [facility] CampusTotal Thlirtmgu6540-67-33 07:04:00* Test Item Value Reference Range Interpretation Comments Total Bilirubin (test code = 1975-2) 2.3 0.2-1.2 H [facility] CampusAspartate Amino Transf (AST/SGOT) 2018-04-14 07:04:00* Test Item Value Reference Range Interpretation Comments Aspartate Amino Transf (AST/SGOT) (test code = Aspartate Amino Transf (AST/SGOT)) 25 5-34 [facility] CampusAlanine Aminotransferase (ALT/SGPT) 2018-04-14 07:04:00* Test Item Value Reference Range Interpretation Comments Alanine Aminotransferase (ALT/SGPT) (test code = 1742-6) 17 0-55 [facility] CampusTotal Gputuwj4491-08-27 07:04:00* Test Item Value Reference Range Interpretation Comments Total Protein (test code = 2885-2) 7.0 6.5-8.1 [facility] CampusAlbumin2018-05-22 07:04:00* Test Item Value Reference Range Interpretation Comments Albumin (test code = 1751-7) 3.1 3.5-5.0 L [facility] CampusGlobulin2018-05-22 07:04:00* Test Item Value Reference Range Interpretation Comments Globulin (test code = 34360-5) 3.9 2.3-3.5 H [facility] CampusAlbumin/Globulin Nwnvr1149-52-72 07:04:00 * Test Item Value Reference Range Interpretation Comments Albumin/Globulin Ratio (test code = 1759-0) 0.8 0.8-2.0 [facility] CampusAlkaline Auujodsdzkv5547-67-72 07:04:00* Test Item Value Reference Range Interpretation Comments Alkaline Phosphatase (test code = 6768-6) 109 40-150 [facility] CampusIron Bgyxc5786-75-38 07:00:00* Test Item Value Reference Range Interpretation Comments Iron Level (test code = 2498-4) 63 50-170 [facility] CampusTotal Iron Binding Ncacjtvd5852-35-69 07:00:00* Test Item Value Reference Range Interpretation Comments Total Iron Binding Capacity (test code = 2500-7) 372 261-4 78 [facility] CampusPercent Iron Fdflbdrbmq8759-84-71 07:00:00* Test Item Value Reference Range Interpretation Comments Percent Iron Saturation (test code = 2502-3) 17 15-50 [facility] CampusTransferrin2018-05-22 07:00:00* Test Item Value Reference Range Interpretation Comments Transferrin (test code = 3034-6) 266 180-382 [facility] CampusAmmonia2018-05-22 06:48:00* Test Item Value Reference Range Interpretation Comments Ammonia (test code = 32075-3) 66 31-123 [facility] CampusFree Dguiburmbjydcuio0651-36-12 05:20:00 * Test Item Value Reference Range Interpretation Comments Free Triiodothyronine (test code = 3051-0) 2.7 2.0-4.4 Performed at: [facility] [address] [place], [place] [id number] Director: Troy Maloney MD, Phone: [phone] Hospitals of [facility] CampusCreatine Kinase QU6539-47-82 17:51:00* Test Item Value Reference Range Interpretation Comments Creatine Kinase MB (test code = 71313-1) 0.20 0-5.0 [facility] CampusTroponin X1404-67-31 17:51:00* Test Item Value Reference Range Interpretation Comments Troponin I (test code = JXK5868) -0.001 0-0.300 [facility] CampusCreatine Pchlod2721-31-32 17:09:00* Test Item Value Reference Range Interpretation Comments Creatine Kinase (test code = 2157-6) 10 29-168 L [facility] CampusB-Type Natriuretic Cczkoxu5457-52-78 09:17:00* Test Item Value Reference Range Interpretation Comments B-Type Natriuretic Peptide (test code = 61903-5) 123.5 0-100 H [facility] CampusFree Vahjapohe8283-41-05 09:16:00* Test Item Value Reference Range Interpretation Comments Free Thyroxine (test code = 3024-7) 1.02 0.9-1.8 [facility] CampusHemoglobin A1c Ofuisiv5953-62-88 08:51:00 * Test Item Value Reference Range Interpretation Comments Hemoglobin A1c Percent (test code = Hemoglobin A1c Percent) 6.6 4.0-7.0 [facility] CampusProthrombin Kuau4144-61-79 23:17:00* Test Item Value Reference Range Interpretation Comments Prothrombin Time (test code = 5902-2) 13.7 11.9-14.5 [facility] CampusProthromb Time International Ratio 2018-04-12 23:17:00* Test Item Value Reference Range Interpretation Comments Prothromb Time International Ratio (test code = 6301-6) 1.14 Oral Anticoagulant Therapy INR Values:1. Low Intensity Therapy 1.5 - 2.02 . Moderate Intensity Therapy 2.0 - 3.03. High Intensity Therapy(1) 2.5 - 3. 54. High Intensity Therapy(2) 3.0 - 4.05. Panic Value INR > 5.0 [facility] CampusActivated Partial Thromboplast Time 2018-04-12 23:17:00* Test Item Value Reference Range Interpretation Comments Activated Partial Thromboplast Time (test code = 89052-5) 29.7 23.8-35.5 [facility] CampusIR CONSULT [facility] [address] [place] [address] Patient Name: IWLLIE WU MR #: [id number] : 1950 Age/Sex: 67/F Req #: [id number] Adm Physician: VALENTINA BARNES MD Ordered by: POLO COLE MD Report #: [id number] Location: [facility] Room/Bed: [facility] Procedure: [id number] D X/IR CONSULT Exam Date: Exam Time: REPORT ST ATUS: Signed Fluoroscopically guided lumbar puncture 04/21/2018 Pre-Proce dure Diagnosis: Meningitis Post-procedure Diagnosis:Meningitis [employer] Special Education Teacher: Otto Souza Field Test Engineer: None Sedation: None. 1% lidocaine local anesthesia. Radiation Dose:42.78 mGy (cumulative air kerma) Fluoroscopy time:0.2 min utes Estimate blood loss: None. Blood administered: None Complications: N one Implants/Grafts: None Specimen: 16 mL clear, colorless CSF Proc edure: Informed consent was obtained and the patient placed prone after manager learning radiographs were obtained. A timeout was performed. The back was prepped and draped in standard sterile fashion. Using fluoroscopic guidance a 22-gauge spinal needle was advanced into the thecal sac at the L4-L5 level. Clear, col orless CSF was returned. 16 mL CSF was collected and submitted in 4 vials. The needle was removed and a sterile dressing applied. Findings: Twisting Frame Operator rad iograph:5 nonrib-bearing lumbar vertebral bodies. Aortic atherosclerosis. Op ening pressure: 15 mm water prone position. Impression: Successful fluoro scopically-guided lumbar puncture. This report was generated with voice- recognition technology. Errors in pharmacy stock clerk can occur. Please interpret ac cordingly and contact a radiologist if there are any questions regarding the r eport. Signed by: Dr. Liliane Souza M.D. on 04/21/2018 10:28 AM Dic tated By: LILIANE SOUZA MD 1028 COPY TO: ERIK COLE MD CHEST SINGLE (PORTABLE) [place] [address] Patient Name: WILLIE WU MR #: [id number] : 1950 Age/Sex: 67/F Req #: [id number] Adm Physician: VALENTINA BARNES MD Ordered by: CATRACHITO COLLINS MD Report #: [id number] Location: MED/SURG2 Room/Bed: [facility] Procedure: [id number] DX /CHEST SINGLE (PORTABLE) Exam Date: 04/21/18 Exam Ti me: 1358 REPORT STATUS: Signed PROCEDURE: CHEST SINGLE (PORTABLE) T ECHNIQUE: Portable AP chest INDICATION: Post bronchoscopy COMPARISON: [facility], CT, CT CHEST W, 04/14/2018, 8:58. FINDINGS: See conclusion. CONCLUSION: 1. Left subclavian port catheter tip in the mid SVC. 2. Spiculated right apical pulmonary nodule consistent with lung canc er with or without adjacent pneumonia. No pneumothorax. 3. Cardiomegaly. Mi ldly tortuous thoracic aorta. 4. Intact skeleton. Dictated by: Liliane Souza M.D. on 04/21/2018 at 14:18 Electronically approved by: Erin Souza M.D. on 04/21/2018 at 14:18 Dictated By: JANICE SOUZA MD 1418 Tr anscribed By: CESAR on 04/21/18 1418 COPY TO: CATRACHITO COLLINS MD FLUORO ASSIST NEURO/PAIN CASES [place] [address] Patient Name: WILLIE WU MR #: [id number] : 1950 Age/Sex: 67/F Req #: [id number] Adm Physician: VALENTINA BARNES MD Ordered by: POLO COLE MD Report #: [id number] Location: MED/SURG2 Room/Bed: [facility] Procedure: [id number] D X/FLUORO ASSIST NEURO/PAIN CASES Exam Date: 04/21/18 Exam Time: 0950 REPORT STATUS: Signed Fluoroscopically guided lumbar p uncture 04/21/2018 Pre-Procedure Diagnosis: Meningitis Post-procedure Diag nosis:Meningitis [employer] Special Education Teacher: Otto Souza Field Test Engineer: None Sedation: None . 1% lidocaine local anesthesia. Radiation Dose:42.78 mGy (cumulative air k chance) Fluoroscopy time:0.2 minutes Estimate blood loss: None. Blood admin istered: None Complications: None Implants/Grafts: None Specimen: 16 mL cl ear, colorless CSF Procedure: Informed consent was obtained and the p atient placed prone after manager learning radiographs were obtained. A timeout was perfo rmed. The back was prepped and draped in standard sterile fashion. Using fluoroscopic guidance a 22-gauge spinal needle was advanced into the thecal sa c at the L4-L5 level. Clear, colorless CSF was returned. 16 mL CSF was collect ed and submitted in 4 vials. The needle was removed and a sterile dressing jon lied. Findings: Twisting Frame Operator radiograph:5 nonrib-bearing lumbar vertebral bodies . Aortic atherosclerosis. Opening pressure: 15 mm water prone position. Impression: Successful fluoroscopically-guided lumbar puncture. This report was generated with voice-recognition technology. Errors in transcriptio n can occur. Please interpret accordingly and contact a radiologist if there a re any questions regarding the report. Signed by: Dr. Liliane Souza M.D. on 04/21/2018 10:28 AM Dictated By: LILIANE SOUZA MD Electronically Sign ed By: LILIANE SOUZA MD on 04/21/18 1028 Transcribed By: LINDA on 04/21/18 1 028 COPY TO: POLO COLE MD LUMBAR SPINE PUNCTURE [place] [address] Patient Name: WILLIE WU MR #: [id number] : 1950 Age/Sex: 67/F Req #: [id number] Adm Physician: VALENTINA BARNES MD Ordered by: POLO COLE MD Report #: [id number] Locat ion: MED/SURG2 Room/Bed: [facility] Procedure: [id number] D X/LUMBAR SPINE PUNCTURE Exam Date: 04/21/18 Exam Case e: [id number] REPORT STATUS: Signed Fluoroscopically guided lumbar puncture Pre-Procedure Diagnosis: Meningitis Post-procedure Diagnosis:Men ingitis [employer] Special Education Teacher: Otto Souza Field Test Engineer: None Sedation: None. 1% lido jessica local anesthesia. Radiation Dose:42.78 mGy (cumulative air kerma) F luoroscopy time:0.2 minutes Estimate blood loss: None. Blood administered: None Complications: None Implants/Grafts: None Specimen: 16 mL clear, colo rless CSF Procedure: Informed consent was obtained and the patient pl aced prone after manager learning radiographs were obtained. A timeout was performed. The back was prepped and draped in standard sterile fashion. Using fluorosco pic guidance a 22-gauge spinal needle was advanced into the thecal sac at the L4-L5 level. Clear, colorless CSF was returned. 16 mL CSF was collected and garza bmitted in 4 vials. The needle was removed and a sterile dressing applied. Findings: Twisting Frame Operator radiograph:5 nonrib-bearing lumbar vertebral bodies. Aortic atherosclerosis. Opening pressure: 15 mm water prone position. Impressi on: Successful fluoroscopically-guided lumbar puncture. This report wa s generated with voice-recognition technology. Errors in pharmacy stock clerk can occ ur. Please interpret accordingly and contact a radiologist if there are any qu estions regarding the report. Signed by: Dr. Liliane Souza M.D. on 018 10:28 AM Dictated By: LILIANE SOUZA MD 1028 Transcribed By: LINDA on 04/21/18 1028 COPY TO: POLO COLE MD MRI BRAIN WO [place] [address] Patient Name: WILLIE WU MR #: [id number] : 1950 Age/Sex: 67/F Req #: [id number] Adm Physician: VALENTINA BARNES MD Ordered by: KELLY SHIN M.D. Report #: [id number] Location: MED/SURG2 Room/Bed: [facility] Procedure: [id number] MRI/MRI BRAIN WO Exam Date: Exam Time: REPORT STATUS: Signed History: SEIZURE Comparison studies: None Tech nique: Axial images were obtained from the skull base to the vertex. Yaneth nal and sagittal reconstructions obtained from the axial data. Findings: Scalp/skull: No abnormalities. No fractures, blastic or lytic lesions. Extra-axial spaces: No masses. No fluid collections. Brain sulci: Mod erately prominent. Ventricles: Moderate compensatory dilatation. No hydrocepha allie. Parenchyma: Severe white matter microvascular ischemic changes. Left caudate head chronic lacunar infarct. Left thalamus chronic lacunar infar ct. No masses, hemorrhage, or acute infarct. Sellar/suprasellar region: N o abnormalities Craniocervical junction: Patent foramen magnum. No Chiari one malformation. Mild to moderate bilateral mastoid air cell fluid. IMPR ESSION: 1. No acute abnormalities. 2. Severe microvascular ischemic sal es. Signed by: DR Kyle Woodson M.D. on 04/15/2018 9:33 PM Di ctated By: KYLE BALDERAS MD 32 Transcribed By: LINDA on 04/15/182132 COPY TO: KELLY WHITE M.D. CT CHEST W [place] [address] Patient Name: WILLIE WU MR #: [id number] : 1950 Age/Sex: 67/F Req #: [id number] Adm Physician: VALENTINA BARNES MD Ordered by: Maral Acosta MACHINE [employer]ER [employer]STER Report #: [id number] Location: [facility] Room/Bed: [place] [address] Procedure: [id number] CT/CT CHEST W Exam Date: 04/14/18 Exam Time: 0850 REPORT STATUS: Signed PROCEDURE: CT CHEST WITH CONTRAST COMPARISON: None. INDICATIONS: History of lung cancer. TECHNIQUE: Routine protocol Volumetric CT chest after administration of 100 mL Isovue-370 intravenous c ontrast. Multiplanar reformatted images. DLP: 448.63 FINDINGS: Dianna gs: 2.5 x 2 x 5.2 cm right apical mass with adjacent intralobular septal thic kening and bronchial wall thickening (for example, image 25, series 3). Assoc iated right upper lobe volume loss with an architectural distortion. Bibasila r groundglass opacity with intra-and interlobular septal thickening.. P ulmonary nodules: 0.3 cm, noncalcified lingula (image 55, series 3). Ple ura: No effusions. Airways: Patent Lymph nodes: Subcentimeter mediastinal. 1 cm short axis right infrahilar (image 50, series 2). 0.6 cm right apical int rafissural node (image 64, series 401). Pulmonary arteries: Normal cent ral caliber. Prominent pulmonary arteries in the periphery, most notably at t he lung bases. Thoracic aorta and great vessels: Normal caliber. Mild great ve ssel tortuosity and atherosclerosis. Left subclavian beverley catheter termin ating in the low SVC. Heart and pericardium: Four-chamber cardiomegaly. No per icardial effusion. Subdiaphragmatic organs: 2.3 cm liver splenic cyst. Enlarged spleen, with a span exceeding 13 cm. Skeleton: Intact. Ill-defined sclerosis in the second and third ribs adjacent to the mass with trace perio steal reaction. (See image 65, series 401. Soft tissues: Normal. CONC LUSION: 1. 2.5 x 2 x 5.2 cm right apical lung mass consistent with repo rted history of lung cancer. 2. 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 Right infrahilar lymphadenopathy concerning for local note metastasis. 3. Right upper lobe architectural distortion and skele celena remodeling suggesting sequela of treatment. 4. Incompletely imaged sple nomegaly. 5. Indeterminate 0.3 cm lingula nodule. 6. Cardiomegaly with mild pulmonary congestion and interstitial edema. 7. Comparison with prior studies would be very beneficial in this patient with known right upper lobe malignan cy and posttreatment changes. Dictated by: Liliane Souza M.D. on 04/14/2018 at 9:35 Electronically approved by: Liliane Souza M.D. on 04/14/2018 at 9:35 Dictated By: LILIANE Mcginnis tim Signed By: LILIANE SOUZA MD on 04/14/18934 Transcribed By: CESAR on 934 COPY TO: MARAL ACOSTA MACHINE [employer] MRA HEAD WO [place] [address] Patient Name: WILLIE WU MR #: [id number] : 1950 Age/Sex: 67/F Req #: [id number] Adm Physician: VALENTINA BARNES MD Ordered by: Maral Acosta MACHINE [employer] Report #: [id number] Loc ation: [facility] Room/Bed: [place] [address] Procedure: [id number] MRI/MRA HEAD WO Exam Date: Exam Time: REPORT STATUS: Signed History: Headaches, dizziness Comparison studies: None Technique: 3-D yick-dp-dmafdx intracranial. Contrast: None Findings: Internal carotid arteries, MCAs and ACAs: No flow abnormalities. V ertebral arteries: No flow abnormalities in the visualized intracranial segme nts. Basilar artery: No flow abnormalities. Posterior cerebral arter ies: No flow abnormalities. Anatomical variants: Acom: Visualized. Pc oms: Visualized bilaterally. Vertebral arteries: Dominant left. IMPRESSI ON: No abnormalities . Signed by: DR Kyle Woodson M.D. on 03/25 3:00 PM Dictated By: KYEL BALDERAS MD 99 Transcribed By: LINDA on 04/14/181499 COPY TO: MARAL ACOSTA NP CT BRAIN WO [place] [address] Patient Name: WILLIE WU MR #: [id number] : 1950 Age/Sex: 67/F Req #: [id number] Adm Physician: Ordered by: OLIVER HOLLOWAY MD Report #: [id number] Location: ER Room/Bed: Procedure: [id number] CT/CT BRAIN WO Exam Zheng e: 04/12/18 Exam Time: 2330 REPORT STATUS: Sign ed Exam: Head CT without contrast History: Fall, syncope Comparison stud ies: None Technique: Axial images were obtained from the skull base to t he vertex. Coronal and sagittal images reconstructed from the axial data. In travenous contrast: None Findings: Scalp: No abnormalities. Bones: N o fractures, blastic or lytic lesions. Brain sulci: Mildly prominent. Ramakrishna tricles: Moderate compensatory dilatation. No hydrocephalus. Extra-axial space s: No masses, no fluid collection. Parenchyma: No mass, acute hemorrhag e or acute cortical vascular insults. Scattered confluent hypodensities in the supratentorial white matter are nonspecific but most compatible with chronic small vessel ischemic changes. There are small chronic lacunar infarcts in the head of caudate nuclei bilaterally and in the left thalamus. Sellar/supr asellar region: No abnormalities. Craniocervical junction: Patent foramen magn um. No Chiari one malformation. Incidental findings: Atherosclerotic ed cifications in the carotid siphons and chronic depressed right lamina apprecia ble fracture. Depressed fracture of the right lamina appreciable. IMPRESS ION: No acute intracranial abnormalities. Chronic findings: 1. Mod erate generalized volume loss. 2. Moderate microvascular ischemic changes. 3. Chronic lacunar infarcts in the caudate nuclei and left thalamus. Shanti d by: Dr. Catrachito Killian M.D. on 04/13/2018 12:01 AM Dictated By: CATRACHITO KILLIAN MD 0001 Trans cribed By: LINDA on 04/13/182132 COPY TO: OLIVER HOLLOWAY MD CHEST SINGLE (PORTABLE) [place] [address] Patient Name: WILLIE WU MR #: [id number] : 1950 Age/Sex: 67/F Req #: [id number] Adm Physician: Ordered by: OLIVER HOLLOWAY MD Report #: [id number] Location: ER Room/Bed: Procedure: [id number] DX/CHEST SINGLE (PORTABL E) Exam Date: 04/12/18 Exam Time: 061 REPORT STATUS: Signed EXAMINATION: CHEST SINGLE (PORTABLE) INDICATION: Status post fall, syncope COMPARISON: None FINDINGS: T UBES and LINES: Left upper chest port visualized with tip overlying the regio n of the proximal SVC. LUNGS: Lungs are not well inflated. Confluent spic ulated mass in the right lung apex may represent a neoplasm or a confluent fib rosis. There is no evidence of pneumonia or pulmonary edema. PLEURA: N o pleural effusion or pneumothorax. HEART AND MEDIASTINUM: Cardiac size is mildly enlarged. Widening mediastinum most likely due to poor inspiration. BONES AND SOFT TISSUES: No acute osseous lesion. Soft tissues are unremar kable. UPPER ABDOMEN: No free air under the diaphragm. IMPRESSION: 1. No acute thoracic abnormality. 2. Right apical soft tissue opacity co mpatible with mass versus scar. 3. Correlate for history of lung neoplasm. If clinically indicated, CT of the chest with IV contrast can be obtained. Signed by: Dr. Abhi Shaikh M.D. on 04/13/2018 12:02 AM Dictated By: ABHI COLLADO MD 0002 COPY TO: AMITA HOLLOWAY MD
[2020-10-21] MEDS ORDERED: SODIUM CHLORIDE 0.9% 1000ML 1,000 ML IV STA (16:23)
[2020-10-21 16:49] LABS: BASOPHILS # (AUTO) 0.1 (0.0-0.1); BASOPHILS % 0.8 % (0.0-1.0); EOSINOPHILS # (AUTO) 0.2 (0.0-0.4); EOSINOPHILS % 2.1 % (0.0-6.0); LYMPHOCYTES # (AUTO) 1.7 (1.0-3.2); LYMPHOCYTES % 20.8 % (18.0-39.1); MEAN CORPUSCULAR HEMOGLOBIN 20.9 pg (28-32); MEAN CORPUSCULAR HGB CONC 29.7 g/dL (31-35); MEAN CORPUSCULAR VOLUME 70.3 fL (81-99); MONOCYTES # (AUTO) 0.4 (0.2-0.8); MONOCYTES % 4.7 % (4.4-11.3); NEUTROPHILS % 71.2 % (38.7-80.0); PLATELET COUNT 234 x10e3/uL (140-360); RED BLOOD COUNT 5.26 x10e6/uL (3.6-5.1); RED CELL DISTRIBUTION WIDTH 18.2 % (11.7-14.4)
[2020-10-21 16:56] LABS: INR 0.95; PARTIAL THROMBOPLASTIN TIME 23.5 seconds (23.8-35.5); PROTHROMBIN TIME 13.2 seconds (11.9-14.5)
[2020-10-21 17:07] LABS: ALANINE AMINOTRANSFERASE 56 IU/L (0-55); ALBUMIN 4.1 g/dL (3.5-5.0); ALBUMIN/GLOBULIN RATIO -1.2 (0.8-2.0); ALKALINE PHOSPHATASE 88 IU/L (40-150); ANION GAP 16.9 mmol/L (8-16); BLOOD UREA NITROGEN 15 mg/dL (7-26); BUN/CREATININE RATIO 12 (6-25); CALCIUM 9.3 mg/dL (8.4-10.2); CARBON DIOXIDE 21 mmol/L (22-29); CHLORIDE 102 mmol/L (98-107); CREATINE KINASE 25 IU/L (29-168); CREATININE, SERUM 1.26 mg/dL (0.57-1.11); EST GLOMERULAR FILTRATION RATE 42 ML/MIN (60-); GLUCOSE 279 mg/dL (74-118); MAGNESIUM 1.8 MG/DL (1.3-2.1); POTASSIUM 4.9 mmol/L (3.5-5.1); SODIUM 135 mmol/L (136-145)
--- NOTE | 2020-10-21 17:20 | Emergency Department Note ---
History of Present Illnes History of Present Illness Chief Complaint: Neurological History of Present Illness This is a 70 year old female FALL FROM CHAIR. FOUND ON FLOOR BY FAMILY. 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 REPORTED LOC. PATIENT A/O X 4. 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 Any updates have been documented here. Past Medical History Recent Fever: No Clinical Suspicion of Infectio: No New/Unexplained Change in Ment: No Past Medical History: Hypertension, Diabetes, CVA Other Medical History: DEMENTIA Past Surgical History: None Social History Smoking Cessation: Never Smoker Counseling Performed: No Alcohol Use: None Any Illegal Drug Use: No TB Exposure/Symptoms: No Physically hurt or threatened: No Family History Family history of heart diseas: No Other Any Pre-Existing Lines (PICC,: No Review of Systems Review of Systems Constitutional: Reports no symptoms EENTM: Reports no symptoms Cardiovascular: Reports syncope Respiratory: Reports no symptoms Gastrointestinal: Reports no symptoms Genitourinary: Reports no symptoms Musculoskeletal: Reports no symptoms Integumentary: Reports no symptoms Neurological: Reports no symptoms Psychological: Reports no symptoms Endocrine: Reports no symptoms Hematological/Lymphatic: Reports no symptoms Physical Exam Related Data Allergies: Coded Allergies: codeine (Verified Allergy, Unknown, 10/21/20) lorazepam (Verified Allergy, Unknown, 04/12/18) Triage Vital Signs Vital Signs Date Time Temp Pulse Resp B/P (MAP) Pulse Ox O2 Delivery O2 Flow Rate FiO2 10/21/20 16:14 98.2 88 18 130/60 99 Room Air Vital signs reviewed: Yes Physical Exam CONSTITUTIONAL Constitutional: Present well-developed, Present well-nourished HENT HENT: Present normocephalic, Present atraumatic, Present oropharynx clear/moist, Present nose normal HENT L/R: Present left ext ear normal, Present right ext ear normal EYES Eyes: Reports PERRL, Reports conjunctivae normal NECK Neck: Present ROM normal; Absent carotid bruit PULMONARY Pulmonary: Present effort normal, Present breath sounds normal CARDIOVASCULAR Cardiovascular: Present regular rhythm, Present heart sounds normal, Present capillary refill normal, Present normal rate GASTROINTESTINAL Abdominal: Present soft, Present nontender, Present bowel sounds normal GENITOURINARY Genitourinary: Present exam deferred SKIN Skin: Present warm, Present dry MUSCULOSKELETAL Musculoskeletal: Present ROM normal NEUROLOGICAL Neurological: Present alert, Present oriented x 3, Present no gross motor or sensory deficits PSYCHOLOGICAL Psychological: Present mood/affect normal, Present judgement normal Results Laboratory Result Diagram: 10/21/20 1638 10/21/20 1638 Laboratory Laboratory Tests Test 10/21/20 16:38 White Blood Count 8.38 x10e3/uL (4.8-10.8) Red Blood Count 5.26 x10e6/uL (3.6-5.1) Hemoglobin 11.0 g/dL (12.0-16.0) Hematocrit 37.0 % (34.2-44.1) Mean Corpuscular Volume 70.3 fL (81-99) Mean Corpuscular Hemoglobin 20.9 pg (28-32) Mean Corpuscular Hemoglobin Concent 29.7 g/dL (31-35) Red Cell Distribution Width 18.2 % (11.7-14.4) Platelet Count 234 x10e3/uL (140-360) Neutrophils (%) (Auto) 71.2 % (38.7-80.0) Lymphocytes (%) (Auto) 20.8 % (18.0-39.1) Monocytes (%) (Auto) 4.7 % (4.4-11.3) Eosinophils (%) (Auto) 2.1 % (0.0-6.0) Basophils (%) (Auto) 0.8 % (0.0-1.0) Neutrophils # (Auto) 6.0 (2.1-6.9) Lymphocytes # (Auto) 1.7 (1.0-3.2) Monocytes # (Auto) 0.4 (0.2-0.8) Eosinophils # (Auto) 0.2 (0.0-0.4) Basophils # (Auto) 0.1 (0.0-0.1) Absolute Immature Granulocyte (auto 0.03 x10e3/uL (0-0.1) Prothrombin Time 13.2 seconds (11.9-14.5) Prothromb Time International Ratio 0.95 Activated Partial Thromboplast Time 23.5 seconds (23.8-35.5) Sodium Level 135 mmol/L (136-145) Potassium Level 4.9 mmol/L (3.5-5.1) Chloride Level 102 mmol/L (98-107) Carbon Dioxide Level 21 mmol/L (22-29) Anion Gap 16.9 mmol/L (8-16) Blood Urea Nitrogen 15 mg/dL (7-26) Creatinine 1.26 mg/dL (0.57-1.11) Estimat Glomerular Filtration Rate 42 ML/MIN (60-) BUN/Creatinine Ratio 12 (6-25) Glucose Level 279 mg/dL (74-118) Calcium Level 9.3 mg/dL (8.4-10.2) Magnesium Level 1.8 MG/DL (1.3-2.1) Total Bilirubin 0.3 mg/dL (0.2-1.2) Aspartate Amino Transf (AST/SGOT) 45 IU/L (5-34) Alanine Aminotransferase (ALT/SGPT) 56 IU/L (0-55) Alkaline Phosphatase 88 IU/L (40-150) Creatine Kinase 25 IU/L (29-168) Creatine Kinase MB 0.60 ng/mL (0-5.0) Troponin I < 0.001 ng/mL (0-0.300) Total Protein < 0.8 g/dL (6.5-8.1) Albumin 4.1 g/dL (3.5-5.0) Globulin -3.3 g/dL (2.3-3.5) Albumin/Globulin Ratio -1.2 (0.8-2.0) Lab results reviewed: Yes Imaging Imaging results reviewed: Yes Procedures 12 Lead ECG Interpretation ECG Interpretation : ECG: ECG 1 Compounder Sterile Products: Interpreted by ED physician Date: Oct 21, 2020 Time: 16:20 Rhythm: sinus rhythm Rate: normal BPM: 72 QRS axis: normal ST segments normal: Yes T waves flattening: III Other findings: LVH Clinical Impression: abnormal ECG Assessment & Plan Medical Decision Making MDM SYNCOPE - CBC, CHEM, ECG, CARDIACS, CT BRAIN/C-SPINE, CXR - R/O STEMI/NSTEMI, DYSRHYTHMIA, CEREBRAL BLEED, CERV FX, DEHYDRATION, RENAL INSUFF, ELECTROLYTE ABNL Reassessment Reassessment ADMIT TO DR BARNES Assessment & Plan Final Impression: (1) Syncope (2) Lung mass Depart Disposition: ADMITTED Last Vital Signs Date Time Temp Pulse Resp B/P (MAP) Pulse Ox O2 Delivery O2 Flow Rate FiO2 10/21/20 16:14 98.2 88 18 130/60 99 Room Air Home Meds Reported Medications Trazodone Hcl (TRAZODONE HCL) 50 Mg Tablet, 100 MG PO Q4HR, #30 TAB 04/13/18 Pravastatin Sodium (PRAVASTATIN SODIUM) 10 Mg Tablet 04/13/18 Amlodipine Besylate (AMLODIPINE BESYLATE) 5 Mg Tablet, 5 MG PO DAILY, #30 TAB 04/13/18 Metoprolol Succinate (METOPROLOL SUCCINATE) 50 Mg Tab.er.24h, 50 MG PO DAILY, MG 04/13/18 Lisinopril (LISINOPRIL) 10 Mg Tablet, 10 MG PO DAILY, #30 TAB 04/13/18 Insulin Lispro (HUMALOG) 100 Unit/1 Ml Cartridge, 4 AC 04/13/18 Insulin Glargine (LANTUS 3ML PEN) 100 Units/1 Ml Inj, 24 HS 04/13/18 Medications in the ED Sodium Chloride 1,000 ml @ 0 mls/hr Q0M STAT IV Last administered on 10/21/20at 17:03; Admin Dose 999 MLS/HR; Start 10/21/20 at 16:23; Stop 10/21/20 at 16:26; Status DC OLIVERIO HALL MD Oct 21, 2020 17:20
--- NOTE | 2020-10-21 17:28 | Diagnostic Imaging Report ---
Exam: Head CT without contrast History: Trauma, fall Comparison studies: Head CT 04/12/2018 and brain MRI 04/15/2018 Technique: Axial images were obtained from the skull base to the vertex. Coronal and sagittal images reconstructed from the axial data. Dose modulation, iterative reconstruction, and/or weight based adjustment of the mA/kV was utilized to reduce the radiation dose to as low as reasonably achievable. Findings: Scalp: No abnormalities. Bones: No fractures, blastic or lytic lesions. Brain sulci: Mild prominent.. Ventricles: Moderate compensatory dilatation. No hydrocephalus. Extra-axial spaces: No masses, no fluid collection. Parenchyma: Ill-defined and confluent hypodensities in the supratentorial white matter are nonspecific but are most compatible with chronic microvascular ischemic changes. Chronic lacunar infarcts are present in the bilateral caudate nuclei, left thalamus and in the deep bifrontal white matter. No mass, acute hemorrhage or acute cortical insults. Sellar/suprasellar region: No abnormalities. Craniocervical junction: Patent foramen magnum. No Chiari one malformation. Incidental findings: Calcified atherosclerosis in the carotid siphons and intradural vertebral arteries. Small and nonspecific layering secretions in the left maxillary sinus. IMPRESSION: No acute intracranial abnormality. Chronic findings: 1. Moderate generalized parenchymal volume loss. 2. Moderate microvascular ischemic changes with chronic lacunar infarcts as described. Signed by: Dr. Jarrett Mack M.D. on 10/21/2020 5:25 PM
--- NOTE | 2020-10-21 17:38 | Diagnostic Imaging Report ---
EXAMINATION: CHEST SINGLE (PORTABLE) INDICATION: ^fall ^20201021 ^1700 COMPARISON: Chest x-ray on 04/12/2018. FINDINGS: TUBES and LINES: None. LUNGS: There is a spiculated right apical subpleural mass, slightly increased in size when compared to prior examination. There is diffuse soft tissue prominence with no focal consolidation. PLEURA: No pleural effusion or pneumothorax. HEART AND MEDIASTINUM: The cardiomediastinal silhouette is unremarkable. BONES AND SOFT TISSUES: No acute osseous lesion. Soft tissues are unremarkable. UPPER ABDOMEN: No free air under the diaphragm. IMPRESSION: 1. No acute thoracic radiographic abnormality. 2. Spiculated right apical subpleural mass, slightly increased in size when compared to prior examination and highly suspicious for malignancy. Recommend complete assessment of the lungs with contrast-enhanced chest CT. 3. Pulmonary vascular congestion without aroldo edema. Signed by: Brian Sarmiento MD on 10/21/2020 5:35 PM
--- NOTE | 2020-10-21 17:40 | Diagnostic Imaging Report ---
History: Trauma, Comparison studies: None Technique: Axial images were obtained through the cervical region. Coronal and sagittal images reconstructed from the axial data. Dose modulation, iterative reconstruction, and/or weight based adjustment of the mA/kV was utilized to reduce the radiation dose to as low as reasonably achievable. Intravenous contrast: None Findings: Atlantoaxial articulation: Intact. Alignment: Normal lordosis. No scoliosis. Cervicomedullary junction: No abnormalities. The foramen magnum is patent. Soft tissues: No gross acute abnormalities. Vertebrae: No fractures, infection or neoplasm. Degenerative changes: Mildly degenerated C4-C5 and C5-C6 disks. Patent spinal canal. Mild foraminal stenosis on the right at C4-C5 due to uncovertebral facet arthrosis. Included lung apices: Incompletely evaluated, partially imaged nonspecific right upper lobe mass which abuts the pleura is with adjacent bronchiectasis. A similar density was seen on a prior chest x-ray of 04/12/2018. Incidental findings: Partially opacified right mastoid tip. Scattered calcified atherosclerosis. Partially imaged left chest port catheter. IMPRESSION: 1. No cervical spine fractures or subluxation. 2. Right upper lobe mass with bronchiectasis. Grossly similar density was present on the prior chest x-ray of 04/12/2018. Nonemergent chest CT recommended to further evaluate if not recently performed. Ligament, spinal cord and or vascular abnormalities cannot be excluded on the basis of this examination Signed by: Dr. Jarrett Mack M.D. on 10/21/2020 5:37 PM
[2020-10-21] MEDS ORDERED: SODIUM CHLORIDE 0.9% 1000ML 1,000 ML IV SCH (18:30)
[2020-10-21] MEDS ORDERED: ONDANSETRON HCL INJ 2MG/ML 2ML 2 MG/ML VIAL IV PRN (18:30)
[2020-10-21] MEDS ORDERED: ACETAMINOPHEN 325 MG TAB PO PRN (18:30)
[2020-10-21] MEDS ORDERED: DEXTROSE 50% SYRINGE 50 ML IV PRN (18:30)
--- OUTSIDE RECORDS SUMMARY | 2020-10-21 18:35 | XMS REPORT | Clinical Summary ---
Author Author [facility] [place] [facility] Address Unknown Phone Unavailable Care Team Providers Care Digital Production Operator Name Role Phone Jay Tipton DO PCP [phone] Allergies Comments Active Allergy Reactions Severity [...] TIA (transient ischemic attack) (Primary Dx) 11/26/2019 [facility] Internal Ny dicine - Encounter 11/27/2019 after 10/21/2019 Immunizations Name Administration Dates Next Due FLUZONE HIGH-DOSE PF 11/27/2019 Pneumococcal Conjugate 11/27/2019 13-[facility] Surgical History Surgery Date Site/Laterality Comments PORTACATH PLACEMENT TUBAL LIGATION COLONOSCOPY 04/10/2018 N/A Procedure: COLO NOSCOPY; Surgeon: Brodie Williamson MD; Location: [facility]; Servic e: Gastroenterology; Laterality: N/A; ESOPHAGOGASTRODUODENOSCOP 04/10/2018 Esophagus/Later Pro cedure: ESOPHAGOGASTRODUODENOSCOPY (EGD); Y (EGD) al Surgeon: Brodie Williamson MD; Location: [facility]; Service: Gastroenterology; Laterality: Lateral; Medical History Medical History Date Comments Diabetes mellitus (HCC) IDDM TIA (transient ischemic attack) Arthritis Pneumonia Anemia History of blood transfusion Cancer (HCC) lung cancer- in remission Cancer (HCC) lung Diabetes mellitus (HCC) Stroke (HCC) [id number] Hypertension Dementia (HCC) Family History Medical History [...] Comments Vital Sign 140/65 11/27/2019 10:41 AM [employer] Blood Pressure 77 11/27/2019 10:41 AM [employer] Pulse 36.5 C (97.7 F) 11/27/2019 10:41 AM [employer] Temperature 20 11/27/2019 10:41 AM [employer] Respiratory Rate 99% 11/27/2019 10:41 AM [employer] Oxygen Saturation - - Inhaled Oxygen Concentration 89.8 kg (198 lb) 11/26/2019 3:10 PM [employer] Weight 154.9 cm (5' 1") 11/26/2019 3:10 PM [employer] Height 37.41 11/26/2019 3:10 PM [employer] Body Mass Index Plan of Treatment Health Maintenance Due Date Last Done Comments COLONOSCOPY SCREENING 2000 SHINGLES VACCINES (#1) 2000 BREAST CANCER SCREENING 02/24/2015 02/24/2013, 02/11/2013 INFLUENZA VACCINE 06/24/2020 11/27/2019 65+ PNEUMOCOCCAL VACCINE 11/27/2020 11/27/2019 (2 of 2 - PPSV23) Procedures Comments Procedure Name Priority Date/Time Associated Diag nosis POC GLUCOSE Routine 11/27/2019 11:14 AM [employer] VITAMIN B12 LEVEL Routine 11/27/2019 10:05 AM [employer] POC GLUCOSE Routine 11/27/2019 5:14 AM [employer] T4, FREE Routine 11/27/2019 4:46 AM [employer] THYROID STIMULATING Routine 11/27/2019 HORMONE 4:46 AM [employer] ESTIMATED GFR Routine 11/27/2019 4:46 AM [employer] COMPREHENSIVE METABOLIC Routine 11/27/2019 PANEL 4:46 AM [employer] HC COMPLETE BLD COUNT Routine 11/27/2019 W/AUTO DIFF 4:46 AM [employer] LIPID PANEL Routine 11/27/2019 4:46 AM [employer] TROPONIN Timed 11/27/2019 1:20 AM [employer] TROPONIN Timed 11/26/2019 10:15 PM [employer] POC GLUCOSE Routine 11/26/2019 8:07 PM [employer] MRA NECK WO CONTRAST STAT 11/26/2019 6:46 PM [employer] MRA HEAD WO CONTRAST STAT 11/26/2019 6:32 PM [employer] MRI STROKE BRAIN WO STAT 11/26/2019 CONTRAST 6:11 PM [employer] POC GLUCOSE Routine 11/26/2019 5:22 PM [employer] TROPONIN Timed 11/26/2019 5:22 PM [employer] URINALYSIS SCREEN AND STAT 11/26/2019 MICROSCOPY, WITH REFLEX 4:37 PM [employer] TO CULTURE URINE CULTURE STAT 11/26/2019 4:37 PM [employer] TTE COMPLETE, WO Routine 11/26/2019 CONTRAST, W AGITATED 4:30 PM [employer]ING SALINE ([id number]) CT ANGIOGRAM NECK W WO STAT 11/26/2019 CONTRAST 4:00 PM DIRECTOR OF [employer]TE[employer] CT ANGIOGRAM HEAD W WO STAT 11/26/2019 CONTRAST 3:55 PM DIRECTOR OF INTE[employer] CT STROKE BRAIN WO STAT 11/26/2019 CONTRAST 3:46 PM [employer] ECG 12-LEAD STAT 11/26/2019 3:30 PM [employer] ECG ED PRELIMINARY Routine 11/26/2019 INTERPRETATION 3:23 PM [employer] ESTIMATED GFR STAT 11/26/2019 3:17 PM [employer] COMPREHENSIVE METABOLIC STAT 11/26/2019 PANEL 3:17 PM [employer] PROTHROMBIN TIME WITH INR STAT 11/26/2019 3:17 PM [employer] PARTIAL THROMBOPLASTIN STAT 11/26/2019 TIME (PTT) 3:17 PM [employer] HC COMPLETE BLD COUNT STAT 11/26/2019 W/AUTO DIFF 3:17 PM [employer] after 10/21/2019 Results * POC glucose (11/27/2019 11:14 AM [employer]) Only the most recent of 4 results within the time period is included. [facility] POC glucose 294 (H) 65 - 99 mg/dL [place] Comment: SHAILA VALLE Irrigator Gravity Flow Name: [facility] TNeisha Device ID: [id number] Specimen Performing Organization Address [facility] P brandon Number [address] [place] [address] PATHOLOGY AND GENOMIC MEDICINE [place] SHAILA VALLE [address] [place] [address] * Vitamin B12 level (11/27/2019 10:05 AM DIRECTOR [employer]) [facility] Vitamin B12 482 211 - 946 pg/mL [place] Comment: SHAILA VALLE Significant overlap exists [facility] between normal and deficiency states. However, most patients with deficiencies will have Serum B12 <200 pg/mL. Specimen Serum Performing Organization Address [facility] P brandon Number [address] [place] [address] PATHOLOGY AND [facility] MEDICINE [place] SHAILA VALLE [address] [place] [address] * Estimated GFR (11/27/2019 4:46 AM [employer]OR [employer]) Only the most recent of 2 results within the time period is included. Pathologist [facility] Estimated GFR 42 (A) mL/min/1.73 m2 [place] Comment: SHAILA VALLE [facility] Interpretation G1 >=90 Normal or high G2 [...] 2014. Specimen Plasma specimen Performing Organization Address City/[facility]/ZIP Code P brandon Number [facility] [place] [address] PATHOLOGY AND GENOMIC MEDICINE [facility] [id number] [place] [address] * CBC with platelet and differential (11/27/2019 4:46 AM [employer]) Only the most recent of 2 results within the time period is included. WBC 7.44 4.50 - 11.00 k/uL [facility] RBC 4.77 4.20 - 5.50 m/uL [facility] HGB 10.8 (L) 12.0 - 16.0 g/dL [facility] HCT 35.8 (L) 37.0 - 47.0 % [facility] MCV 75.1 (L) 82.0 - 100.0 fL [facility] MCH 22.6 (L) 27.0 - 34.0 pg [facility] MCHC 30.2 (L) 31.0 - 37.0 g/dL [facility] RDW - SD 41.4 37.0 - 55.0 fL [facility] MPV 12.1 8.8 - 13.2 fL [facility] Platelet count 195 150 - 400 k/uL [facility] Nucleated RBC 0.00 /100 WBC [facility] Neutrophils 53.9 39.0 - 69.0 % [facility] Lymphocytes 34.0 25.0 - 45.0 % [facility] Monocytes 6.6 0.0 - 10.0 % [facility] Eosinophils 4.3 0.0 - 5.0 % [facility] Basophils 0.9 0.0 - 1.0 % [facility] Specimen Blood Performing Organization Address City/State/ZIP Code P brandon Number [facility] [address] [place] [id number] PATHOLOGY AND GENOMIC MEDICINE [address] * Thyroid stimulating hormone (11/27/2019 4:46 AM [employer]) TSH 3.63 0.27 - 4.20 uIU/mL [facility] Specimen Plasma specimen Performing Organization Address City/State/ZIP Code P brandon Number [facility] [place] [place] [address] [address] [place] [address] PATHOLOGY AND [facility] MEDICINE [facility] [id number] [place] [address] [place] [address] [facility] * T4, free (11/27/2019 4:46 AM [employer]) T4, free 0.93 0.90 - 1.70 ng/dL [facility] Specimen Plasma specimen Performing Organization Address City/[facility] Code P brandon Number [facility] [address] [place], [place] [address] PATHOLOGY AND [facility] MEDICINE [facility] [id number] [place] [address] [place] [address] [facility] * Lipid panel (11/27/2019 4:46 AM [employer]) Cholesterol 160 <200 mg/dL [facility] Triglycerides 343 (A) <150 mg/dL [facility] HDL cholesterol 33 (L) >40 mg/dL [facility] LDL cholesterol 74Comment: Result obtained by <100 mg/dL [place] direct LDL measurement [facility] Lipid panel [facility] interpretation Comment: [facility] Total Cholesterol (mg/dL) [facility] <200 Desirable 200-239 Borderline-high >=240 High Triglycerides [...] mg/dL) Specimen Plasma specimen Performing Organization Address City/[facility] Code P brandon Number [facility] [address] [place], [place] [address] PATHOLOGY AND GENOMIC MEDICINE [facility] [id number] [place] [address] [place] [phone] [facility] * Comprehensive metabolic panel (11/27/2019 4:46 AM [employer]) Only the most recent of 2 results within the time period is included. Sodium 139 135 - 148 mEq/L [facility] Potassium 4.3 3.5 - 5.0 mEq/L [facility] Chloride 102 98 - 112 mEq/L [facility] CO2 24 24 - 31 mEq/L [facility] Anion gap 13@ANIO 7 - 15 mEq/L [facility] BUN 20 8 - 23 mg/dL [facility] Creatinine 1.30 (H) 0.50 - 0.90 mg/dL [facility] Glucose 201 (H) 65 - 99 mg/dL [facility] Calcium 9.9 8.8 - 10.2 mg/dL [facility] Protein 8.2 6.3 - 8.3 g/dL [place] Comment: [facility] Mtzugtw3221.6-7.0 g/dL [facility] 1 lvsh0131.4-7.6 g/dL 7 months-5xydj585.1-7.3 g/dL 1-2 .6-7.5 g/dL >3 .0-8.0 g/dL 18-9682761.3-8.3 g/dL Albumin 4.2 3.5 - 5.0 g/dL [facility] A/G ratio 1.0 0.7 - 3.8 [facility] Alkaline 72 35 - 104 U/L [place] phosphatase [facility] AST 34 10 - 35 U/L [facility] ALT 42 5 - 50 U/L [facility] Total bilirubin 0.3 0.0 - 1.2 mg/dL [facility] Specimen Plasma specimen Performing Organization Address City/State/ZIP Code [place] [address] [place] [address] PATHOLOGY AND GENOMIC MEDICINE [facility] [id number] [place] [address] [place] [phone] [facility] * Troponin (11/27/2019 1:20 AM [employer]) Only the most recent of 3 results within the time period is included. Troponin <0.006 0.000 - 0.040 ng/mL [place] Comment: SHAILA VALLE In patients suspected of [facility] having a myocardial infarction, along with all [...] Code P brandon [place] [address] [place], [place] [address] PATHOLOGY AND GENOMIC MEDICINE [place] SHAILA VALLE [address] [place] [address] [facility] * MRA Neck Wo Contrast (11/26/2019 6:46 PM [employer]) Specimen Narrative Performed At EXAMINATION: MRA NECK [...] the brachiocephalic and left common carotid arteries [id number][id number] Procedure Note Hm Interface, Radiology Results Incoming - 11/26/2019 7:04 PM [employer] EXAMINATION: MRA NECK WO CONTRAST CLINICAL HISTORY: [...] the brachiocephalic and left common carotid arteries [id number] Performing Organization Address City/State/ZIP Code P brandon Number [facility] [address] [place] [address] * MRA Head Wo Contrast (11/26/2019 6:32 PM [employer]) Specimen Narrative Performed At EXAMINATION: MRA HEAD WO CONTRASTINCLUDING 3D MIP R ECONSTRUCTED IMAGES. [facility] CLINICAL HISTORY: tia COMPARISON: CTA brain November [...] the findings correlate with the prior study. [id number] Procedure Note Hm Interface, Radiology Results Incoming - 11/26/2019 6:49 PM [employer] EXAMINATION: MRA HEAD WO CONTRASTINCLUDING 3D MIP [...] the findings correlate with the prior study. [id number] Performing Organization Address City/State/ZIP Code P brandon Number [facility] [address] [place] [address] * MRI Stroke Brain Wo Contrast (11/26/2019 6:11 PM [employer]) Specimen Narrative Performed At EXAMINATION: MRI STROKE [...] assessment with no evident abn ormalities of [place] and dural sinuses. SKULL: *No [...] appears unchanged when compared with previous CT [id number] Procedure Note Hm Interface, Radiology Results Incoming - 11/26/2019 6:27 PM [employer] EXAMINATION: MRI STROKE BRAIN WO CONTRAST CLINICAL [...] *Limited assessment with no evident abnormalities of [place] and dural sinuses. SKULL: *No [...] appears unchanged when compared with previous CT [id number] Performing Organization Address City/State/ZIP Code P brandon Number [facility] [address] [place] [address] * Urinalysis screen and microscopy, with reflex to culture (11/26/2019 4:37 PM [employer]) Specimen site Clean catch [facility] Color, UA Straw [facility] Appearance, UA Clear [facility] Specific 1.020 1.001 - 1.035 [place] gravity, UA [facility] pH, UA 7.0 5.0 - 8.5 [facility] Protein, UA 1+ (A) Negative [facility] Glucose, UA 3+ (A) Negative [facility] Ketones, UA Negative Negative [facility] Bilirubin, UA Negative Negative [facility] Blood, UA Negative Negative [facility] Nitrite, UA Negative Negative [facility] Urobilinogen, Negative <2.0 [facility] Leukocyte Negative Negative [place] esterase, [facility] Epithelial None seen Few /HPF [place] cells, [facility] WBC, UA None seen 0 - 4 /HPF [facility] RBC, UA 0-5 0 - 5 /HPF [facility] Bacteria, UA Few None seen [facility] Yeast, UA None seen [facility] Yeast with None seen [place] pseudohyphae, [facility] Specimen Urine Performing Organization Address [facility] P brandon Number [address] [place] [address] PATHOLOGY AND GENOMIC MEDICINE [address] * Urine culture (11/26/2019 4:37 PM DIRECTOR [employer]) Pathologist [facility] Urine culture SEE COMMENTComment: [place] Bacteriuria screen negative. [facility] Specimen Urine Performing Organization Address City/[facility] P brandon Number [address] [place] [address] PATHOLOGY AND GENOMIC MEDICINE [address] * Echocardiogram complete w contrast and 3D if needed (11/26/2019 4:30 PM [employer]) Velocity Ratio 0.75 m/s HM SYNGO (V1/V2) [...] LA Ao Ratio 0.74 HM SYNGO Mmode MN End [place] 2.58 HM SYNGO Grad MN End Diat Yasir 0.80 HM SYNGO D [...] LV EF,BP 59.77 % HM SYNGO [place]any [place],d A2C 7.29 cm HM SYNGO [place],d A4C 7.89 cm HM SYNGO [place],s A2C 5.89 cm HM SYNGO [place],s A4C 6.15 cm HM SYNGO LV SV,A2C [...] Code P brandon Number [facility] [address] [place] [address], [place] * CTA Neck W Wo Contrast (11/26/2019 4:00 PM [employer]) Specimen Narrative Performed At EXAMINATION: CT ANGIOGRAM [...] previously. Correlate with outside imaging if available. [id number] Procedure Note Interface, Radiology Results Incoming - 11/26/2019 4:39 PM [employer] EXAMINATION: CT ANGIOGRAM NECK W WO CONTRAST [...] previously. Correlate with outside imaging if available. [facility]-[id number] Performing Organization Address City/State/ZIP Code P brandon Number [facility] [address] [place] [address] * CTA Head W Wo Contrast (11/26/2019 3:55 PM [employer]) Specimen Narrative Performed At EXAMINATION: CT ANGIOGRAM [...] large vessel occlusion o r high-grade stenosis. [facility]-[id number] Procedure Note Interface, Radiology Results Incoming - 11/26/2019 4:44 PM [employer] EXAMINATION: CT ANGIOGRAM HEAD W WO CONTRAST [...] of large vessel occlusion or high-grade stenosis. [facility]-[id number] Performing Organization Address City/State/ZIP Code P brandon Number [facility] [address] [place] [address] * CT Stroke Brain Wo Contrast (11/26/2019 3:46 PM DIRECT[employer]) Specimen Narrative Performed At EXAMINATION: CT STROKE [...] 11/26/2019 4:06 PM who verbalized underst anding. [id number] Procedure Note Hm Interface, Radiology Results Incoming - 11/26/2019 4:09 PM [employer] EXAMINATION: CT STROKE BRAIN WO CONTRAST CLINICAL [...] at 11/26/2019 4:06 PM who verbalized understanding. [id number] Performing Organization Address City/[facility]/ZIP Code P brandon Number [facility] [address] [place] [phone] * ECG 12 lead (11/26/2019 3:30 PM [employer]) Ventricular 91 [facility] MUSE rate Atrial rate 91 [facility] MUSE MN interval 172 [facility] MUSE QRSD interval 82 [...] is n ot available. Performing Organization Address [facility] Code P brandon Number [facility] MUSE [address] [place] [id number] * ECG ED Preliminary Interpretation - Not an Order (11/26/2019 3:23 PM DIRECT[employer]) Narrative Performed At Casandra Sorto MD 020 10:10 PM ECG ED Preliminary Interpretation - Not an Order Performed by: Casandra Sorto MD Authorized by: Casandra Sorto MD ECG reviewed by ED Physician in the abs ence of a marketing sales representative: yes Interpretation: Interpretation: normal Rate: ECG rate: 91 ECG rate assessment: normal Rhythm: Rhythm: sinus rhythm Ectopy: Ectopy: none QRS: QRS axis: Normal QRS intervals: Normal Conduction: Conduction: normal ST segments: ST segments: Normal T waves: T waves: normal * Partial thromboplastin time, activated (11/26/2019 3:17 PM [employer]) PTT 29.7 23.0 - 36.0 sec [place] Comment: SHAILA VALLE PTT therapeutic range for [facility] unfractionated heparin is 61.0-112.0 seconds which corresponds to Anti-Xa 0.3-0.7 U/ml. Specimen Blood Performing Organization Address City/[facility]/ZIP Code [place] [address] [place] [address] PATHOLOGY AND GENOMIC MEDICINE [place] [address] * Prothrombin time with INR (11/26/2019 3:17 PM [employer]) Prothrombin 12.7 11.5 - 14.5 sec [place] time HOLINESS CLEAR [facility] INR 1.0 [place] Comment: SHAILA VALLE The International Normalized [facility] Ratio (INR) is a therapeutic monitoring tool for patients who are stable on oral anticoagulant therapy. An INR of 2.0-3.0 is suggested for deep vein thrombosis/pulmonary embolism. Specimen Blood Performing Organization Address City/[facility] [place] [address] [place] [address] PATHOLOGY AND [facility] MEDICINE [place] [address] after 10/21/2019 Insurance Type Payer Benefit Subscriber ID Effective Phone Address Plan / Dates Group [facility] [id number] 2015-P resent [facility] [id number] 2019-P resent Advance Directives For more information, please contact: [phone] Patient Refractory Manager Explanation Type Date Recorded Advance Directives, 03/26/2017 2:04 PM Living Will and Medical Power of Deep Tissue Massage Therapist Advance Directives, 11/26/2019 4:08 PM Living Will and Medical Power of Deep Tissue Massage Therapist Date Inactivated Comments Code Status Date Activated 11/27/2019 6:08 PM Full Code 11/26/2019 7:55 PM Code Status decision reached by: Patient 04/10/2018 11:16 PM Full Code 04/08/2018 9:48 PM Code Status decision reached by: Patient 03/27/2017 9:32 PM Full Code 03/26/2017 8:00 PM Code Status decision reached by: Patient
--- OUTSIDE RECORDS SUMMARY | 2020-10-21 18:35 | XMS REPORT | Continuity of Care Document ---
Author Author [facility] t Organization [facility] Address [address] [place] [address] [address] [place] [address] Phone Unavailable Care Team Providers Care Meat And Seafood Clerk Name Role Phone VALENTINA BARNES DO PCP Justine HALL Attphys Unavailable Macario ROUSE, Patrice Guajardo Attphys [phone] TeqwimdeepMitch chowdhury DO Attphys VALENTINA BARNES Attphys Unavailable VALENTINA BARNES Admphys Unavailable Payers Payer Name Policy Type Policy Number Effective Date Expiration Date S blake [id number] 2015-PresentMilitary 400 2015 00:00:00 Desean Car [facility] [id number] 2015 00:00:00 [facility] Problems Condition Name Condition Details Condition Category Status Onset Date Resolution Date Last Treatment Date Treating Clinician Comments Source TIA (transient ischemic attack) TIA (transient ischemic attack) Dis ease Active 2019-11-26 00:00:00 Desean Car Severe anemia Severe anemia Disease Active 2018-04-08 00:00:00 Desean Car Altered mental status, unspecified Altered mental status, unspec ified Disease Active 2017-03-26 00:00:00 Misa Car Syncope Syncope Problem Active [facility] Allergies, Adverse Reactions, Alerts Allergy Name Allergy Type Status Severity Reaction(s) Onset Date Inacti ve Date Treating Clinician Comments Source Lorazepam Propensity to adverse reactions to drug Active Altered Mental Status 2019-11-26 00:00:00 Desean Car Codeine Propensity to adverse reactions to drug Active Itching 2019-11-26 00:00:00 Desean Burkett t Lorazepam Allergy to Substance Active 2018-04-12 00:00:00 [facility] Codeine Allergy to Substance Active 2018-04-12 00:00:00 [facility] Lorazepam Propensity to adverse reactions to drug Active Other (See Comments) 2017-03-26 00:00:00 Agitation, delirious [place] cheryl Car Codeine Propensity to adverse reactions to drug Active 2017-03-26 00:00:00 Desean Car Family History Family Member Diagnosis Comments Start Date Stop Date Source Natural father Cancer [facility] Natural mother Diabetes [facility] Social History Social Habit Start Date Stop Date Quantity Comments Source Sex Assigned At Susan martine Car Cigarettes smoked current (pack per day) - [...] unit/mL insulin pen 2020-01-12 13:16:23 Yes 8U [id number] In ject 8 Units under the skin [...] unit/mL injection 2020-01-12 13:16: 23 Yes 8U [id number] Inject 8 Units under the ski n [...] Besylate 5 Mg Tablet Yes 5 Daily [facility] Insulin Glargine (Lantus 3ML Pen) 100 Units/1 Ml Inj I nsulin Glargine (Lantus 3ML Pen) 100 Units/1 Ml Inj Yes [address] [facility] Insulin Lispro (Humalog) 100 Unit/1 Ml Cartridge Insul in Lispro (Humalog) 100 Unit/1 Ml Cartridge Yes [address] [facility] Lisinopril 10 Mg Tablet Lisinopril 10 Mg Tablet Yes [address] [facility] Metoprolol Succinate 50 Mg Tab.er.24h Metoprolol Succinate 50 Mg Ta b.er.24h Yes [address] [facility] Pravastatin Sodium 10 Mg Tablet Pravastatin Sodium 10 Mg Tablet Yes [facility] Trazodone Hcl 50 Mg Tablet Trazodone Hcl 50 Mg Tablet Yes 100 Every 4 Hours [facility] Immunizations Ordered Immunization Name Filled Immunization Name [...] Car Body temperature 2019-11-27 10:41:42 36.5 Ariana Jerrell ton [facility] Respiratory rate 2019-11-27 10:41:42 20 /min [place] [facility] Oxygen saturation in Arterial blood by Pulse oximetry 2020-0 1-04 10:41:42 99 /min Desean Car Body height 2019-11-26 15:10:00 154.9 cm Desean Car Body weight 2019-11-26 15:10:00 89.812 kg Desean Car BMI 2019-11-26 15:10:00 37.41 kg/m2 Desean Car Procedures Procedure Date / Time Performed Performing Clinician Alyssia samaniego POC GLUCOSE 2019-11-27 11:14:00 TeqwimMitch azevedo Meth odist VITAMIN B12 LEVEL 2019-11-27 10:05:00 Liliane Suggsist POC GLUCOSE 2019-11-27 05:14:00 TeqwimMitch azevedo odrowena LIPID PANEL 2019-11-27 04:46:00 Latasha Whitney HC COMPLETE BLD COUNT W/AUTO DIFF 2019-11-27 04:46:00 Cheryl Whitney COMPREHENSIVE METABOLIC PANEL 2019-11-27 04:46:00 Franc Whitney ESTIMATED GFR 2019-11-27 04:46:00 Latasha Whitney [employer] THYROID STIMULATING HORMONE 2019-11-27 04:46:00 Liliane Suggs T4, FREE 2019-11-27 04:46:00 Liliane Suggs Me thodist TROPONIN 2019-11-27 01:20:00 TeMitch parkinson odist TROPONIN 2019-11-26 22:15:00 TekayeimMitch azevedo Meth odist POC GLUCOSE 2019-11-26 20:07:00 TeqwimMitch azevedo Meth odist MRA NECK WO CONTRAST 2019-11-26 18:46:14 Latasha Whitney MRA HEAD WO CONTRAST 2019-11-26 18:32:28 Latasha Whitney MRI STROKE BRAIN WO CONTRAST 2019-11-26 18:11:55 Phi Whitney TROPONIN 2019-11-26 17:22:00 TekayeimMitch azevedo Meth odist POC GLUCOSE 2019-11-26 17:22:00 Teqwimuah, Mitchtito Anton Meth odist URINE CULTURE 2019-11-26 16:37:00 Latasha Whitney URINALYSIS SCREEN AND MICROSCOPY, WITH REFLEX TO CULTURE 16:37:00 Latasha Whitney TTE COMPLETE, WO CONTRAST, W AGITATED SALINE ([id number]) 2019-11 16:30:[address] ANGIOGRAM NECK [...] Bronchoscopy with biopsy 2018-04-21 00:00:[address] [facility] Magnetic resonance imaging of brain without contrast 2018-03 00:00:00 KELLY SHIN [facility] Magnetic resonance angiography of head without contrast 2017 00:00:[address] [facility] Computed tomography of chest with contrast 2018-04-14 00:00:[address] [facility] Computed tomography of brain without radiopaque contrast 201 06-28-20 00:00:[address] [facility] Plan of Care Planned Activity Planned Date Details Comments Source Future Scheduled Test 2020-11-27 00:00:00 65+ PNEUMOCOCCAL V ACCINE (2 of 2 - PPSV23) [code = 65+ PNEUMOCOCCAL VACCINE (2 of 2 - PPSV23)] [facility] Future Scheduled Test 2020-06-24 00:00:00 INFLUENZA VACCINE [code = INFLUENZA VACCINE] [facility] Future Scheduled Test 2015-02-24 00:00:00 BREAST CANCER SCRE ENING [code = BREAST CANCER SCREENING] [facility] Future Scheduled Test 2000 00:00:00 COLONOSCOPY SCREEN ING [code = COLONOSCOPY SCREENING] [facility] Scheduled Test 2000 00:00:00 SHINGLES VACCINES (#1) [code = SHINGLES VACCINES (#1)] [facility] Encounters Start Date/Time End Date/Time Encounter Type Admission Type Attendi [facility] Care Department Encounter ID Source 2018-04-14 13:33:00 2018-04-22 22:30:00 Discharged Inpatient 1 VALENTINA BARNES [facility] [id number] [facility] Results Test Description Test Time Test Comments Results Result Comments Source CHEST SINGLE (PORTABLE) 2020-10-21 17:30:00 [facility] 1950 Sex: F [facility] [place] [address] Patient Name: WLILIE WU MR #: [id number] : 1950 Age/Sex: 70/F Req #: [id number] Adm Physician: Ordered by: OLIVERIO HALL MD Report #: [id number] Location: ER Room/Bed: Procedure: [id number] DX/CHEST SINGLE (PORTABLE) Exam Date: 10/21/20 Exam Time: 1700 REPORT STATUS: Signed EXAMINATION: CHEST SINGLE (PORTABLE) INDICATION: 20201021 COMPARISON: Chest x-ray on 04/12/2018. FINDINGS: TUBES and LINES: None. LUNGS: There is a spiculated right apical subpleural mass, slightly increased in size when compared to prior examination. There is diffuse soft tissue prominence with no focal consolidation. PLEURA: No pleural effusion or pneumothorax. HEART AND MEDIASTINUM: The cardiomediastinal silhouette is unremarkable. BONES AND SOFT TISSUES: No acute osseous lesion. Soft tissues are unremarkable. UPPER ABDOMEN: No free air under the diaphragm. IMPRESSION: 1. No acute thoracic radiographic abnormality. 2. Spiculated right apical subpleural mass, slightly increased in size when compared to prior examination and highly suspicious for malignancy. Recommend complete assessment of the lungs with contrast-enhanced chest CT. 3. Pulmonary vascular congestion without aroldo edema. Signed by: Brian Barfield MD on 10/21/2020 5:35 PM Dictated By: BRIAN BARFIELD MD 34 Transcribed By: LINDA on 10/21/201734 COPY TO: OLIVERIO HALL MD CT CERVICAL SPINE WO 2020-10-21 17:26:00 [facility] : 1950 Sex: F [facility] [address] [address] Patient Name: WILLIE WU MR #: [id number] : 1950 Age/Sex: 70/F Req #: [id number] Adm Physician: Ordered by: OLIVERIO HALL MD Report #: [id number] Location: ER Room/Bed: Procedure: [id number] CT/CT CERVICAL SPINE WO Exam Date: 10/21/20 Exam Time: 1655 REPORT STATUS: Signed History: Trauma, Comparison studies: None Technique: Axial images were obtained through the cervical region. Coronal and sagittal images reconstructed from the axial data. Dose modulation, iterative reconstruction, and/or weight based adjustment of the mA/kV was utilized to reduce the radiation dose to as low as reasonably achievable. Intravenous contrast: None Findings: Atlantoaxial articulation: Intact. Alignment: Normal lordosis. No scoliosis. Cervicomedullary junction: No abnormalities. The foramen magnum is patent. Soft tissues: No gross acute abnormalities. Vertebrae: No fractures, infection or neoplasm. Degenerative changes: Mildly degenerated C4-C5 and C5-C6 disks. Patent spinal canal. Mild foraminal stenosis on the right at C4-C5 due to uncovertebral facet arthrosis. Included lung apices: Incompletely evaluated, partially imaged nonspecific right upper lobe mass which abuts the pleura is with adjacent bronchiectasis. A similar density was seen on a prior chest x-ray of 04/12/2018. Incidental findings: Partially opacified right mastoid tip. Scattered calcified atherosclerosis. Partially imaged left chest port catheter. IMPRESSION: 1. No cervical spine fractures or subluxation. 2. Right upper lobe mass with bronchiectasis. Grossly similar density was present on the prior chest x-ray of 04/12/2018. Nonemergent chest CT recommended to further evaluate if not recently performed. Ligament, spinal cord and or vascular abnormalities cannot be excluded on the basis of this examination Signed by: Dr. Catrachito Killian M.D. on 10/21/2020 5:37 PM Dictated By: CATRACHITO KILLIAN MD 36 Transcribed By: LINDA on 10/21/201736 COPY TO: OLIVERIO HALL MD CT BRAIN WO 2020-10-21 17:17:00 [facility] 1950 Sex: F [facility] [address] [place] [address] Patient Name: WILLIE WU MR #: [id number] : 1950 Age/Sex: 70/F Req #: [id number] Adm Physician: Ordered by: OLIVERIO HALL MD Report #: [id number] Location: ER Room/Bed: Procedure: [id number] CT/CT BRAIN WO Exam Date: 10/21/20 Exam Time: 1655 REPORT STATUS: Signed Exam: Head CT without contrast History: Trauma, fall Comparison studies: Head CT 04/12/2018 and brain MRI 04/15/2018 Technique: Axial images were obtained from the skull base to the vertex. Coronal and sagittal images reconstructed from the axial data. Dose modulation, iterative reconstruction, and/or weight based adjustment of the mA/kV was utilized to reduce the radiation dose to as low as reasonably achievable. Findings: Scalp: No abnormalities. Bones: No fractures, blastic or lytic lesions. Brain sulci: Mild prominent.. Ventricles: Moderate compensatory dilatation. No hydrocephalus. Extra-axial spaces: No masses, no fluid collection. Parenchyma: Ill-defined and confluent hypodensities in the supratentorial white matter are nonspecific but are most compatible with chronic microvascular ischemic changes. Chronic lacunar infarcts are present in the bilateral caudate nuclei, left thalamus and in the deep bifrontal white matter. No mass, acute hemorrhage or acute cortical insults. Sellar/suprasellar region: No abnormalities. Craniocervical junction: Patent foramen magnum. No Chiari one malformation. Incidental findings: Calcified atherosclerosis in the carotid siphons and intradural vertebral arteries. Small and nonspecific layering secretions in the left maxillary sinus. IMPRESSION: No acute intracranial abnormality. Chronic findings: 1. Moderate generalized parenchymal volume loss. 2. Moderate microvascular ischemic changes with chronic lacunar infarcts as described. Signed by: Dr. Catrachito Killian M.D. on 10/21/2020 5:25 PM Dictated By: CATRACHITO KILLIAN MD 24 Transcribed By: LINDA on 10/21/201724 COPY TO: OLIVERIO HALL MD POC glucose 2019-11-27 11:22:11 Test Item POC glucose (test code = 13504-9) 294 mg/dL 65-99 H Machine Operator Name: Pedro Castillo ID: [id number] Lab Interpretation (test code = 23983-5) Abnormal Anton MethodrowenaVitamin B12 pddcr8826-89-10 10:47:21* Test Item Value Reference Range Interpretation Comments Vitamin B12 (test code = 2132-9) 482 pg/mL 211-946 Significant overlap exists between normal and deficiency states.However, most patients with deficiencies will have Serum B12 <200 pg/mL. Desean MethodistT4, rfkv3770-18-32 10:06:51* Test Item Value Reference Range Interpretation Comments T4, free (test code = 3024-7) 0.93 ng/dL 0.9-1.7 Desean CarThyroid stimulating tlwehnm8857-83-86 10:06:51* Test Item Value Reference Range Interpretation Comments TSH (test code = 3016-3) 3.63 0.27- 4.20 uIU/mL Desean CarComprehensive metabolic pglsq6271-25-11 05:36:47* Test Item Value Reference Range Interpretation Comments Sodium (test code = 2951-2) 139 135- 148 mEq/L Potassium (test code = 2823-3) 4.3 3.5- 5.0 mEq/L Chloride (test code = 2075-0) 102 98- 112 mEq/L CO2 (test code = 2027-9) 24 24- 31 mEq/L Anion gap (test code = 52256-5) 13@ANIO 7- 15 mEq/L BUN (test code = 3094-0) 20 mg/dL 8-23 Creatinine (test code = 2160-0) 1.30 mg/dL 0.5-0.9 H Glucose (test code = 2345-7) 201 mg/dL 65-99 H Calcium (test code = 61679-7) 9.9 mg/dL 8.8-10.2 Protein (test code = 2885-2) 8.2 g/dL 6.3-8.3 Sukeysg9530.6-7.0 g/dL1 lsle4014.4-7.6 g/dL7 months-3armu845.1-7.3 g/dL1-2 .6-7.5 g/dL>3 gutxe476.0-8.0 g/fN99-3800210.3-8.3 g/dL Albumin (test code = 1751-7) 4.2 g/dL 3.5-5 A/G ratio (test code = 1759-0) 1.0 0.7-3.8 Alkaline phosphatase (test code = 6768-6) 72 U/L 35-104 AST (test code = 1920-8) 34 U/L 10-35 ALT (test code = 1742-6) 42 U/L 5-50 Total bilirubin (test code = 1974-) 0.3 mg/dL 0-1.2 Lab Interpretation (test code = 59294-4) Abnormal Anton MethodistLipid xhzaq1742-55-67 05:36:47* Test Item Value Reference Range Interpretation Comments Cholesterol (test code = 2093-3) 160 mg/dL <200 Triglycerides (test code = 2571-8) 343 mg/dL <150 A HDL cholesterol (test code = 2085-9) 33 mg/dL >40 L LDL cholesterol (test code = 2089-1) 74 mg/dL <100 Result obtained by direct LDL measurement Lipid panel interpretation (test code = 70461-2) SeeBelow Total Cholesterol (mg/dL) <200 Desirable 200-239 [...] (>=200 mg/dL) Lab Interpretation (test code = 90902-9) Abnormal Milton MethodistEstimated KOX1493-41-25 05:36:47* Test Item Value Reference Range Interpretation Comments Estimated GFR (test code = 5488) 42 mL/min/1.73 m2 A Catergory Units InterpretationG1 >=90 Normal or highG2 60-89 Mildly jpnqiefyiN2s 45-59 Mildly to moderately dlacpragoR3s 30-44 Moderately to severely decreasedG4 15-29 Severely decreasedG5 <15 Kidney failureThe eGFR was calculated using the Chronic Kidney Disease Epidemiology Collaboration (CKD-EPI) equation. Interpretation is based on recommendations of the National Kidney Foundation-Kidney Disease Outcomes Quality Initiative (NKF-KDOQI) published in 2014. Lab Interpretation (test code = 64748-4) Abnormal Milton MethodistCBC with platelet and qrgdcrvwulvy9463-70-91 05:13:59* Test Item Value Reference Range Interpretation Comments WBC (test code = 10983-6) 7.44 4.50- 11.00 k/uL RBC (test code = 08438-9) 4.77 m/uL 4.2-5.5 HGB (test code = 718-7) 10.8 g/dL 12-16 L HCT (test code = 4544-3) 35.8 % 37-47 L MCV (test code = 787-2) 75.1 fL 82-100 L MCH (test code = 785-6) 22.6 pg 27-34 L MCHC (test code = 786-4) 30.2 g/dL 31-37 L RDW - SD (test code = 63475-0) 41.4 fL 37-55 MPV (test code = 45721-0) 12.1 fL 8.8-13.2 Platelet count (test code = 08906-2) 195 150- 400 k/uL Nucleated RBC (test code = 19094-6) 0.00 /100 WBC Neutrophils (test code = 38660-0) 53.9 % 39-69 Lymphocytes (test code = 73418-4) 34.0 % 25-45 Monocytes (test code = 71170-2) 6.6 % 0-10 Eosinophils (test code = 09914-0) 4.3 % 0-5 Basophils (test code = 19709-1) 0.9 % 0-1 Lab Interpretation (test code = 90959-6) Abnormal Desean TaylorDpvowymmyWhbhherh9375-77-85 02:04:06* Test Item Value Reference Range Interpretation Comments Troponin (test code = 25060-5) <0.006 0-0.04 In patients suspected of having [...] decreased by less than 0.020 ng/mL Desean Mcfarland 12 djfx9416-48-45 21:23:22* Test Item Value Reference Range Interpretation Comments Ventricular rate (test code = 253) 91 Atrial rate (test code = 255) 91 PA interval (test code = 266) 172 QRSD [...] rhythm-N ormal ECG-No previous ECGs available- Desean [place] Wo Fjpjqnkt9157-95-35 19:01:43Hm Interface, Radiology Results - 11/26/2019 7:04 [...] t he brachiocephalic and left common carotid arteriesWB-[id number] MethodistMRA Head Wo Hjnfztku9261-09-27 18:46:12Hm Interface, Radiology Results 11/26/2019 6:49 PM CSTEXAMINATION: MRA HEAD WO [...] t he findings correlate with the prior study.[id number] MethodistMRI Stroke Brain Wo Locjakki8660-60-80 18:24:48Hm Interface, Radiology Results 11/26/2019 6:27 PM CSTEXAMINATION: MRI STROKE BRAIN [...] assessmen t with no evident abnormalities of [place] and dural sinuses. SKULL: *No [...] appears unchan ged when compared with previous [facility]B-[id number] MethodistUrine culture 2019-11-26 17:10:37* Test Item Value Reference Range Interpretation Comments Urine culture (test code = 1819920) SEE COMMENT Bacteriuria screen negative. Milton MethodistUrinalysis screen and microscopy, with reflex to culture 2019-11-26 17:10:37* Test Item Value Reference Range Interpretation Comments Specimen site (test code = 6199778) Clean catch Color, UA (test code = 5778-6) Straw Appearance, UA (test code = 5767-9) Clear Specific gravity, UA (test code = 5811-5) 1.020 1.001-1.035 pH, UA (test code = 5803-2) 7.0 5.0-8.5 Protein, UA (test code = 84944-8) 1+ Negative A Glucose, UA (test code = 37045-9) 3+ Negative A Ketones, UA (test code = 2514-8) Negative Negative Bilirubin, UA (test code = 5770-3) Negative Negative Blood, UA (test code = 5794-3) Negative Negative Nitrite, UA (test code = 5802-4) Negative Negative Urobilinogen, UA (test code = 84081-2) Negative <2.0 Leukocyte esterase, UA (test code = 5799-2) Negative Negative Epithelial cells, UA (test code = 5787-7) None seen Few /HPF WBC, UA (test code = 5821-4) None seen 0- 4 /HPF RBC, UA (test code = 63175-4) 0-5 0- 5 /HPF Bacteria, UA (test code = 29622-6) Few None seen Yeast, UA (test code = 06871-5) None seen Yeast with pseudohyphae, UA (test code = 01599-9) None seen Lab Interpretation (test code = 74307-7) Abnormal Milton MethodistEchocardiogram complete w contrast and 3D if zzotgn5449-19-80 17:06:32* Test Item Value Reference Range Interpretation Comments Velocity Ratio (V1/V2) (test code = 4689) 0.75 m/s IVS,d (test code = 2627497696) 1.03 cm Ao root annulus (test code = 7438418372) 3.63 cm EF (test code = 3011205485) 61.82 % LVPWD,d (test code = 1815303533) 1.08 cm AoV Mean PG (test code = 6727760900) 4.86 mmHg AV LVOT peak gradient (test code = 3170934721) 5.62 mmHg MV valve area p 1/2 method (test code = 0514381998) 5.90 cm2 E/A ratio (test code = 6677168056) 0.72 E wave decelartion time (test code = 1469979647) 194.75 msec LVOT Diam,S (test code = 4701489616) 2.02 cm LVOT area (test code = 9555502652) 3.20 cm2 LVOT Vmax (test code = 8323325996) 1.19 m/s LVOT VTI (test code = 1840511920) 0.23 m AoV Peak PG (test code = 2439038007) 9.95 mmHg MV Peak E Yasir (test code = 3521011250) 0.74 m/s MV stenosis pressure 1/2 time (test code = 8838965688) 37.29 ms MV Peak A Yasir (test code = 6994862147) 1.03 m/s LV Vol,s A2C (test code = 3732131060) 25.81 mL LV Vol,d A2C (test code = 0523391776) 54.99 mL AoV Area, Vmax (test code = 7540217839) 2.42 cm2 AoV Area, VTI (test code = 3191381344) 2.55 cm2 AoV Vmax (test code = 2741967087) 1.58 m/s LV,d (test code = 1017030203) 3.31 cm LV,s (test code = 4826005305) 2.24 cm LV Vol,d A4C (test code = 8540041399) 56.94 ml LV Vol,s A4C (test code = 6265953827) 20.36 ml MV E A ratio (test code = 9614133716) 0.72 MR peak grad (test code = 9474806842) 98.28 mmHg LA Vol 4C (test code = 2072630286) 26.00 ml LV SYS VOL (test code = 2860840873) 16.93 ml LV HARRINGTON VOL (test code = 6715351867) 44.34 ml LA diam s (test code = 8647602807) 2.70 cm LA Vol MOD A4C (test code = 2722836974) 25.50 ml LV SV Teich 2D (test code = 3666076265) 27.40 ml LVOT SI (test code = 2224332377) 39.85 ml/m2 AoV Cusp sep (test code = 5793203975) 1.73 Aortic Root (test code = 9254384123) 3.60 cm AoV Vmn (test code = 2243723391) 1.04 IVS s 2D (test code = 2185431683) 1.25 LA Ao Ratio Mmode (test code = 4107857449) 0.74 PA End Harrington Grad (test code = 4587303493) 2.58 PA End Diat Yasir (test code = 9746716538) 0.80 D E excurs (test code = 3888360161) 1.50 E f slope (test code = 4830762753) 0.03 E prime lat (test code = 2003728261) 0.09 E fela sept (test code = 5845789480) 0.06 PV acc T slope (test code = 3687914996) 7.40 PV AT (test code = 5553661928) 110.73 msec RAWLS BP EF (test code = 7540033909) 60.00 % LA VOL 2C (test code = 8922973494) 41.00 ml AoV VTI (test code = 9750299502) 0.29 m LV EF,A2C (test code = 6325136783) 53.06 % LV EF,A4C (test code = 4581873841) 64.25 % LV EF,BP (test code = 0045699533) 59.77 % Hany [place],d A2C (test code = 6848796366) 7.29 cm Hany [place],d A4C (test code = 2311372346) 7.89 cm Hany [place],s A2C (test code = 4458447006) 5.89 cm Hany [place],s A4C (test code = 3227662873) 6.15 cm LV SV,A2C (test code = 3916934571) 29.18 % LV SV,A4C (test code = 2414474949) 36.58 % LV Vol,d BP (test code = 4376105556) 58.01 ml LV Vol,s BP (test code = 9449639559) 23.34 nl MR Vmax (test code = 0037439682) 4.96 m/s LVOT Vmn (test code = 1051529972) 0.91 Pt Size (test code = 8565316028) 154.94 Pt Wt (test code = 4006583724) 89.81 LVOT mean grad (test code = 5264066007) 3.44 mmHg LVPW s PLAX (test code = 4313485276) 1.29 cm MV Decel slope (test code = 3498031977) 3.81 m/s2 MAYELIN (test code = MAYELIN) BUBBLE STUDY PERFORMED. Left ventricular systolic function is normal. Left Ventricular ejection fraction is 60 - 65%. Saline contrast study negative for PFO Anton MethodistCTA Head W Zpnuxuqf9437-26-40 16:41:17Hm Interface, Radiology Results 11/26/2019 4:44 PM CSTEXAMINATION: CT ANGIOGRAM HEAD W CONTRASTCLINICAL HISTORY: STROKECOMPARISON: NoneTECHNIQUE: Imaging of the [...] evidence of large vessel occlusion or high-grade stenosis.HMTW-[id number] MethodistCTA Neck W Csmjwktd5727-97-53 16:36:39Hm Interface, Radiology Results 11/26/2019 4:39 PM CSTEXAMINATION: CT ANGIOGRAM NECK W CONTRASTCLINICAL HISTORY: STROKECOMPARISON: None.TECHNIQUE:Neck CTA with multi-planar [...] previously. Correlate with outside imag ing if available.HMTW-[id number] MethodistCT Stroke Brain Wo Contrast 2019-11-26 16:06:53Hm [...] and acknowledged by LATASHA WHITNEY at 11/26/19 4:06 PM who verbalized understanding. [facility]-[id number] Pentecostalism Prothrombin time with POT0126-28-23 15:47:07* Test Item Value Reference Range Interpretation Comments Prothrombin time (test code = 5902-2) 12.7 11.5- 14.5 sec INR (test code = 97168-3) 1.0 Th e International Normalized Ratio (INR) is a therapeutic monitoring tool for patients who are stable on oral anticoagulant therapy. An INR of 2.0-3.0 is suggested for deep vein thrombosis/pulmonary embolism. Milton Methodzuni [facility] centerPartial thromboplastin time, orvypzwcq9205-64-90 15:47:07* Test Item Value Reference Range Interpretation Comments PTT (test code = 15192-8) 29.7 23.0- 36.0 sec PTT therapeutic range for unfractionated heparin is61.0-112.0 seconds which corresponds to Anti-Xa0.3-0.7 U/ml. [facility] ED Preliminary Interpretation - Not an Ykebz4438-18-75 15:23:57Latasha Whitney MD 11/26/2019 10:10 [facility] [place] Interpretation - Not an OrderPerformed by: Latasha Whitney MDAuthorized by: Latasha Whitney MD ECG reviewed by ED Physician in the absence of a toy packer: yes Interpretation: Interpretation: normal Rate: ECG rate: 91 ECG rate assessment: normal Rhythm: Rhythm: sinus rhythm Ectopy: Ectopy: none QRS: QRS axis: Normal QRS intervals: NormalConduction: Conduction: normal ST segments: ST segments: NormalT waves: T waves: normal [facility] Rbludqp7892-24-65 20:29:00* Test Item Value Reference Range Interpretation Comments Bedside Glucose (test code = 60271-2) 164 70-120 H Meter ID: [id number]. [facility] CenterPlatelet Estimate 2018-04-22 09:31:00* Test Item Value Reference Range Interpretation Comments Platelet Estimate (test code = 97257-2) ADEQUATE [facility] CenterPlatelet Morphology Mldghgx9089-60-71 09:31:00* Test Item Value Reference Range Interpretation Comments Platelet Morphology Comment (test code = 91728-7) FEW LARGE [facility] CenterHypochromasia2018-05-30 09:31:00* Test Item Value Reference Range Interpretation Comments Hypochromasia (test code = 728-6) SLIGHT [facility] CenterPoikilocytosis2018-05-30 09:31:00* Test Item Value Reference Range Interpretation Comments Poikilocytosis (test code = 779-9) SLIGHT [facility] CenterAnisocytosis2018-05-30 09:31:00* Test Item Value Reference Range Interpretation Comments Anisocytosis (test code = 702-1) MODE [facility] CenterOvalocytes2018-05-30 09:31:00* Test Item Value Reference Range Interpretation Comments Ovalocytes (test code = 774-0) FEW [facility] CenterRed Cell Morphology Djnldrw7077-35-96 09:31:00* Test Item Value Reference Range Interpretation Comments Red Cell Morphology Comment (test code = 6742-1) ABNORMAL [facility] Centerodium Vrsto9016-17-39 06:46:00* Test Item Value Reference Range Interpretation Comments Sodium Level (test code = 2951-2) 135 136-[address] [facility] CenterPotassium Wtcvo4543-22-29 06:46:00* Test Item Value Reference Range Interpretation Comments Potassium Level (test code = 2823-3) 3.8 3.5-5.1 [facility] CenterChloride Mgdkk1815-39-45 06:46:00* Test Item Value Reference Range Interpretation Comments Chloride Level (test code = 2075-0) 105 98-107 [facility] CenterCarbon Dioxide Sjahw8878-69-79 06:46:00* Test Item Value Reference Range Interpretation Comments Carbon Dioxide Level (test code = 2028-9) 22 22-29 [facility] CenterAnion Vca6494-56-12 06:46:00* Test Item Value Reference Range Interpretation Comments Anion Gap (test code = 94144-5) 11.8 8-16 [facility] CenterBlood Urea Whbhovbp4101-14-35 06:46:00* Test Item Value Reference Range Interpretation Comments Blood Urea Nitrogen (test code = 3094-0) 12 7-26 [facility] CenterCreatinine2018-05-30 06:46:00* Test Item Value Reference Range Interpretation Comments Creatinine (test code = 2160-0) 0.68 0.57-1.11 [facility] CenterBUN/Creatinine Jojzk4814-42-55 06:46:00* Test Item Value Reference Range Interpretation Comments BUN/Creatinine Ratio (test code = 3097-3) 18 6-25 [facility] CenterEstimat Glomerular Filtration Rate 2018-04-22 06:46:00* Test Item Value Reference Range Interpretation Comments Estimat Glomerular Filtration Rate (test code = 58702-8) 60- >60 Ranges were taken from the National Kidney Disease Education Program and the [facility] Foundation literature.Reference ranges:60 or greater: Dnykcc42-55 ( for 3 consecutive months): Chronic kidney disease 15 or less: Kidney failureSt. [facility]'s [facility] Medical CenterGlucose Nrxus9138-60-79 06:46:00* Test Item Value Reference Range Interpretation Comments Glucose Level (test code = WSJ6148) 95 74-118 [facility] CenterCalcium Fqgfy1071-33-38 06:46:00* Test Item Value Reference Range Interpretation Comments Calcium Level (test code = 12120-2) 9.0 8.4-10.2 [facility] CenterMagnesium Knfep3472-32-08 06:46:00* Test Item Value Reference Range Interpretation Comments Magnesium Level (test code = 32041-0) 2.0 1.3-2.1 [facility] CenterWhite Blood Ptxev1738-62-86 06:26:00* Test Item Value Reference Range Interpretation Comments White Blood Count (test code = 6690-2) 4.01 4.8-10.[address] [facility] CenterRed Blood Ansuf3604-04-32 06:26:00* Test Item Value Reference Range Interpretation Comments Red Blood Count (test code = 789-8) 4.57 3.6-5.1 [facility] CenterHemoglobin2018-05-30 06:26:00* Test Item Value Reference Range Interpretation Comments Hemoglobin (test code = 41658-0) 9.9 12.0-16.[address] [facility] CenterHematocrit2018-05-30 06:26:00* Test Item Value Reference Range Interpretation Comments Hematocrit (test code = 4544-3) 33.2 34.2-44.[address] [facility] CenterMean Corpuscular Tvvtyb3465-18-19 06:26:00* Test Item Value Reference Range Interpretation Comments Mean Corpuscular Volume (test code = 787-2) 72.6 81-[address] [facility] CenterMean Corpuscular Oezhzytvhh7470-78-84 06:26:00* Test Item Value Reference Range Interpretation Comments Mean Corpuscular Hemoglobin (test code = 785-6) 21.7 28-[address] [facility] CenterMean Corpuscular Hemoglobin Concent 2018-04-22 06:26:00* Test Item Value Reference Range Interpretation Comments Mean Corpuscular Hemoglobin Concent (test code = 786-4) 29.8 31-[address] [facility] CenterRed Cell Distribution Djkey1700-17-90 06:26:00* Test Item Value Reference Range Interpretation Comments Red Cell Distribution Width (test code = 63167-4) 33.0 11.7 -14.[address] [facility] CenterPlatelet Eutyj6648-80-49 06:26:00* Test Item Value Reference Range Interpretation Comments Platelet Count (test code = 777-3) 167 140-360 [facility] CenterNeutrophils (%) (Auto)2018-04-22 06:26:00 * Test Item Value Reference Range Interpretation Comments Neutrophils (%) (Auto) (test code = 36440-6) 59.1 38.7-80.0 [facility] CenterLymphocytes (%) (Auto)2018-04-22 06:26:00 * Test Item Value Reference Range Interpretation Comments Lymphocytes (%) (Auto) (test code = 736-9) 27.7 18.0-39.1 [facility] CenterMonocytes (%) (Auto)2018-04-22 06:26:00* Test Item Value Reference Range Interpretation Comments Monocytes (%) (Auto) (test code = 5905-5) 9.5 4.4-11.3 [facility] CenterEosinophils (%) (Auto)2018-04-22 06:26:00 * Test Item Value Reference Range Interpretation Comments Eosinophils (%) (Auto) (test code = 713-8) 2.7 0.0-6.0 [facility] CenterBasophils (%) (Auto)2018-04-22 06:26:00* Test Item Value Reference Range Interpretation Comments Basophils (%) (Auto) (test code = 706-2) 0.5 0.0-1.0 [facility] CenterIM GRANULOCYTES %2018-04-22 06:26:00* Test Item Value Reference Range Interpretation Comments IM GRANULOCYTES % (test code = IM GRANULOCYTES %) 0.5 0.0- 1.0 [facility] CenterNeutrophils # (Auto)2018-04-22 06:26:00* Test Item Value Reference Range Interpretation Comments Neutrophils # (Auto) (test code = 751-8) 2.4 2.1-6.9 [facility] CenterLymphocytes # (Auto)2018-04-22 06:26:00* Test Item Value Reference Range Interpretation Comments Lymphocytes # (Auto) (test code = 86033-1) 1.1 1.0-3.2 [facility] CenterMonocytes # (Auto)2018-04-22 06:26:00* Test Item Value Reference Range Interpretation Comments Monocytes # (Auto) (test code = 742-7) 0.4 0.2-0.8 [facility] CenterEosinophils # (Auto)2018-04-22 06:26:00* Test Item Value Reference Range Interpretation Comments Eosinophils # (Auto) (test code = 711-2) 0.1 0.0-0.4 [facility] CenterBasophils # (Auto)2018-04-22 06:26:00* Test Item Value Reference Range Interpretation Comments Basophils # (Auto) (test code = 704-7) 0.0 0.0-0.1 [facility] CenterAbsolute Immature Granulocyte (auto 2018-04-22 06:26:00* Test Item Value Reference Range Interpretation Comments Absolute Immature Granulocyte (auto (symone t code = Absolute Immature Granulocyte (auto) 0.02 0-0.1 [facility] Jeozeomzrb6363-81-72 11:44:00* Test Item Value Reference Range Interpretation Comments CSF Appearance (test code = 16881-2) CLEAR CLEAR [facility] Crbyh1115-09-82 11:44:00* Test Item Value Reference Range Interpretation Comments CSF Color (test code = 98392-7) COLORLESS COLORLESS [facility] Cell Count Tube #2018-04-21 11:44:00 * Test Item Value Reference Range Interpretation Comments CSF Cell Count Tube # (test code = 44583-5) 2 [facility] DRR2432-67-91 11:44:00* Test Item Value Reference Range Interpretation Comments CSF WBC (test code = 806-0) 0 0-5 [facility] IGB3066-38-55 11:44:00* Test Item Value Reference Range Interpretation Comments CSF RBC (test code = 01066-7) 1 0-10 [facility] Kziqnkf9685-65-59 11:39:00* Test Item Value Reference Range Interpretation Comments CSF Glucose (test code = 2342-4) 64 40-70 [facility] Total Rzvhwtq0260-22-73 11:39:00* Test Item Value Reference Range Interpretation Comments CSF Total Protein (test code = 2880-3) 51.9 15-[address] [facility] CenterLarge Rwwqsqpwb4948-33-16 08:01:00* Test Item Value Reference Range Interpretation Comments Large Platelets (test code = 5908-9) FEW [facility] CenterTriglycerides Zgjgi7394-53-38 07:09:00* Test Item Value Reference Range Interpretation Comments Triglycerides Level (test code = 2571-8) 191 0-[address] [facility] CenterCholesterol Cvcsd6074-09-57 07:09:00* Test Item Value Reference Range Interpretation Comments Cholesterol Level (test code = 2093-3) 93 0-199 Less than 200 mg/dL Low Snfb044 - 239 mg/dL Borderline Oimn420 m g/dl and greater High Risk [facility] CenterLDL Mbaifrgwcfp8457-57-20 07:09:00* Test Item Value Reference Range Interpretation Comments LDL Cholesterol (test code = 2089-1) 43 60-[address] [facility] CenterHDL Cehinapbfmz2990-08-10 07:09:00* Test Item Value Reference Range Interpretation Comments HDL Cholesterol (test code = 2085-9) 12 40-[address] [facility] CenterCholesterol/HDL Dmjyb7371-30-24 07:09:00 * Test Item Value Reference Range Interpretation Comments Cholesterol/HDL Ratio (test code = 9830-1) 7.8 3.0-3.[address] [facility] CenterMicrocytosis2018-05-27 11:30:00* Test Item Value Reference Range Interpretation Comments Microcytosis (test code = 741-9) SLIGHT [facility] CenterBlood Slxcxbx6858-11-01 10:10:00* Test Item Value Reference Range Interpretation Comments Blood Culture (test code = 29570919) NO GROWTH AFTER 5 DAYS, FINAL REPORT [facility] CenterDifferential Total Cells Counted 2018-04-18 10:25:00* Test Item Value Reference Range Interpretation Comments Differential Total Cells Counted (test code = Rudy tial Total Cells Counted) 100 [facility] CenterNeutrophils % (Manual)2018-04-18 10:25:00 * Test Item Value Reference Range Interpretation Comments Neutrophils % (Manual) (test code = 54048-3) 64 40-74 [facility] CenterLymphocytes % (Manual)2018-04-18 10:25:00 * Test Item Value Reference Range Interpretation Comments Lymphocytes % (Manual) (test code = 737-7) 24 19-48 [facility] CenterMonocytes % (Manual)2018-04-18 10:25:00* Test Item Value Reference Range Interpretation Comments Monocytes % (Manual) (test code = 744-3) 4 3.4-9.0 [facility] CenterEosinophils % (Manual)2018-04-18 10:25:00 * Test Item Value Reference Range Interpretation Comments Eosinophils % (Manual) (test code = 714-6) 4 0-7 [facility] CenterReactive Kpxchmocrot5871-02-90 10:25:00* Test Item Value Reference Range Interpretation Comments Reactive Lymphocytes (test code = 15294-4) 4 [facility] CenterHerpes Simplex Virus I DNA (PCR) 2018-04-17 21:46:00* Test Item Value Reference Range Interpretation Comments Herpes Simplex Virus I DNA (PCR) (test code = 74077-4) Negative Negative [facility] Simplex Virus II DNA (PCR) 2018-04-17 21:46:00* Test Item Value Reference Range Interpretation Comments Herpes Simplex Virus II DNA (PCR) (test code = 35959-0) Negative Negative This test was developed and its performance characteristicsdetermined by [employer]. It has not been clearedor approved by the U.S. Food and Drug Admi nistration. TheFDA has determined that such clearance or approval is notnecessar y. This test is used for clinical purposes. Itshould not be regarded as investig ational or research.Performed at: [facility] [id number] Director: Sherman Souza MD, Phone: [phone]. [facility]'s [facility] Medical CenterArterial Blood vQ3701-73-71 03:25:00* Test Item Value Reference Range Interpretation Comments Arterial Blood pH (test code = 2744-1) 7.43 7.31-7.[address] [facility] CenterArterial Blood Partial Pressure CO2 2018-04-17 03:25:00* Test Item Value Reference Range Interpretation Comments Arterial Blood Partial Pressure CO2 (test code = 2019-06) 33 41-[address] [facility] CenterArterial Blood Partial Pressure O2 2018-04-17 03:25:00* Test Item Value Reference Range Interpretation Comments Arterial Blood Partial Pressure O2 (test code = 2019-06) 80 80-105 [facility] CenterArterial Blood YHD54691-84-58 03:25:00* Test Item Value Reference Range Interpretation Comments Arterial Blood HCO3 (test code = 1960-4) 22 23-[address] [facility] CenterArterial Blood Base Ftmmyg7929-21-95 03:25:00* Test Item Value Reference Range Interpretation Comments Arterial Blood Base Excess (test code = 1925-7) -2.0 -2-3 [facility] CenterArterial Blood Oxygen Saturation 2018-04-17 03:25:00* Test Item Value Reference Range Interpretation Comments Arterial Blood Oxygen Saturation (test code = 2708-6) 96.0 95-98 Pt on room air.[facility] CenterBlast Cells %2018-04-16 12:41:00* Test Item Value Reference Range Interpretation Comments Blast Cells % (test code = 73911-6) 1 [facility] CenterBurr Bsbbp9625-09-15 12:41:00* Test Item Value Reference Range Interpretation Comments Ruby Cells (test code = 7790-9) SLIGHT [facility] CenterElliptocytes2018-05-24 12:41:00* Test Item Value Reference Range Interpretation Comments Elliptocytes (test code = 13745-3) SLIGHT [facility] CenterVancomycin Level Fcycvd6902-18-85 15:25:00* Test Item Value Reference Range Interpretation Comments Vancomycin Level Trough (test code = 4092-3) 7.3 5.0-10.0 [facility] CenterBasophils % (Manual)2018-04-15 08:25:00* Test Item Value Reference Range Interpretation Comments Basophils % (Manual) (test code = 49378-7) 1 0-1.5 [facility] CenterTear Drop Rvoxm4497-76-71 08:25:00* Test Item Value Reference Range Interpretation Comments Tear Drop Cells (test code = 7791-7) FEW [facility] CenterUrine SBW9515-63-15 10:55:00* Test Item Value Reference Range Interpretation Comments Urine WBC (test code = 5821-4) 0-5 0-5 [facility] CenterUrine GRR9092-48-30 10:55:00* Test Item Value Reference Range Interpretation Comments Urine RBC (test code = 88869-6) 0-5 0-5 [facility] CenterUrine Sdfinimo4657-66-67 10:55:00* Test Item Value Reference Range Interpretation Comments Urine Bacteria (test code = 29464-1) NONE NONE [facility] CenterUrine Epithelial Tpbtg8372-17-78 10:55:00 * Test Item Value Reference Range Interpretation Comments Urine Epithelial Cells (test code = 71431-0) RARE NONE [facility] CenterUrine Hyaline Bvthy9946-71-49 10:55:00* Test Item Value Reference Range Interpretation Comments Urine Hyaline Casts (test code = 66122-2) 2-5 0-[address] [facility] CenterUrine Coarse Granular Poign5564-79-40 10:55:00* Test Item Value Reference Range Interpretation Comments Urine Coarse Granular Casts (test code = 30272-3) 1-[address] [facility] CenterUrine Yqwor0846-95-72 10:43:00* Test Item Value Reference Range Interpretation Comments Urine Color (test code = 5778-6) YELLOW YELLOW [facility] CenterUrine Rvpullu5171-68-18 10:43:00* Test Item Value Reference Range Interpretation Comments Urine Clarity (test code = 97975-5) SL CLOUDY CLEAR [facility] CenterUrine Specific Gbzygng6706-36-56 10:43:00 * Test Item Value Reference Range Interpretation Comments Urine Specific [place] (test code = 5811-5) 1.020 1.010-1.[address] [facility] CenterUrine lZ4742-00-92 10:43:00* Test Item Value Reference Range Interpretation Comments Urine pH (test code = 81214-0) 7 5-7 [facility] CenterUrine Leukocyte Oqxlehab0313-36-81 10:43:00* Test Item Value Reference Range Interpretation Comments Urine Leukocyte Esterase (test code = 5799-2) NEGATIVE NEGATIVE [facility] CenterUrine Pugyvkc8216-89-61 10:43:00* Test Item Value Reference Range Interpretation Comments Urine Nitrite (test code = 05580-4) NEGATIVE NEGATIVE [facility] CenterUrine Xuvtyzu6227-78-74 10:43:00* Test Item Value Reference Range Interpretation Comments Urine Protein (test code = 5804-0) 3+ NEGATIVE H [facility] CenterUrine Glucose (UA)2018-04-14 10:43:00* Test Item Value Reference Range Interpretation Comments Urine Glucose (UA) (test code = 2349-9) NEGATIVE NEGATIVE [facility] CenterUrine Debdroe2454-64-10 10:43:00* Test Item Value Reference Range Interpretation Comments Urine Ketones (test code = 51551-9) NEGATIVE NEGATIVE [facility] CenterUrine Yslcmzoxioot5175-70-53 10:43:00* Test Item Value Reference Range Interpretation Comments Urine Urobilinogen (test code = 83258-1) 0.2 0.2-1 [facility] CenterUrine Yqvitfkhc5233-55-11 10:43:00* Test Item Value Reference Range Interpretation Comments Urine Bilirubin (test code = 1978-6) NEGATIVE NEGATIVE [facility] CenterUrine Errpq8139-44-74 10:43:00* Test Item Value Reference Range Interpretation Comments Urine Blood (test code = 89007-4) TRACE NEGATIVE H [facility] CenterVitamin B12 Zkurq1263-36-57 07:55:00* Test Item Value Reference Range Interpretation Comments Vitamin B12 Level (test code = 04333-9) 206 213-[address] [facility] CenterFolate2018-05-22 07:55:00* Test Item Value Reference Range Interpretation Comments Folate (test code = 2284-8) 15.2 7.0-15.4 [facility] CenterThyroid Stimulating Hormone (TSH) 2018-04-14 07:40:00* Test Item Value Reference Range Interpretation Comments Thyroid Stimulating Hormone (TSH) (test code = 13293-2) 1.343 0.350-4.940 [facility] CenterFerritin2018-05-22 07:17:00* Test Item Value Reference Range Interpretation Comments Ferritin (test code = 2276-4) 78.65 4.63-204.00 [facility] CenterTotal Fzdgmgjhh6077-79-80 07:04:00* Test Item Value Reference Range Interpretation Comments Total Bilirubin (test code = 1975-2) 2.3 0.2-1.[address] [facility] CenterAspartate Amino Transf (AST/SGOT) 2018-04-14 07:04:00* Test Item Value Reference Range Interpretation Comments Aspartate Amino Transf (AST/SGOT) (test code = Aspartate Amino Transf (AST/SGOT)) 25 5-34 [facility] CenterAlanine Aminotransferase (ALT/SGPT) 2018-04-14 07:04:00* Test Item Value Reference Range Interpretation Comments Alanine Aminotransferase (ALT/SGPT) (test code = 1742-6) 17 0-55 [facility] CenterTotal Ahruyyj8226-42-91 07:04:00* Test Item Value Reference Range Interpretation Comments Total Protein (test code = 2885-2) 7.0 6.5-8.1 [facility] CenterAlbumin2018-05-22 07:04:00* Test Item Value Reference Range Interpretation Comments Albumin (test code = 1751-7) 3.1 3.5-5.[address] [facility] CenterGlobulin2018-05-22 07:04:00* Test Item Value Reference Range Interpretation Comments Globulin (test code = 27098-7) 3.9 2.3-3.[address] [facility] CenterAlbumin/Globulin Ssqii9982-17-87 07:04:00 * Test Item Value Reference Range Interpretation Comments Albumin/Globulin Ratio (test code = 1759-0) 0.8 0.8-2.0 [facility] CenterAlkaline Ldvmebpsvay9720-47-10 07:04:00* Test Item Value Reference Range Interpretation Comments Alkaline Phosphatase (test code = 6768-6) 109 40-150 [facility] CenterIron Anyed2056-39-33 07:00:00* Test Item Value Reference Range Interpretation Comments Iron Level (test code = 2498-4) 63 50-170 [facility] CenterTotal Iron Binding Auuhmprv2072-95-37 07:00:00* Test Item Value Reference Range Interpretation Comments Total Iron Binding Capacity (test code = 2500-7) 372 261-[address] [facility] CenterPercent Iron Ppaoywhpfb5718-87-26 07:00:00* Test Item Value Reference Range Interpretation Comments Percent Iron Saturation (test code = 2502-3) 17 15-50 [facility] CenterTransferrin2018-05-22 07:00:00* Test Item Value Reference Range Interpretation Comments Transferrin (test code = 3034-6) 266 180-382 [facility] CenterAmmonia2018-05-22 06:48:00* Test Item Value Reference Range Interpretation Comments Ammonia (test code = 46454-1) 66 31-123 [facility] CenterFree Otxvipnicinszjpf7524-98-44 05:20:00 * Test Item Value Reference Range Interpretation Comments Free Triiodothyronine (test code = 3051-0) 2.7 2.0-4.4 Performed at: - [facility] [id number] Director: Troy Maloney MD, Phone: [phone]. [facility]'s [facility] CenterCreatine Kinase BW1781-70-18 17:51:00* Test Item Value Reference Range Interpretation Comments Creatine Kinase MB (test code = 49389-5) 0.20 0-5.0 [facility] CenterTroponin H8340-38-89 17:51:00* Test Item Value Reference Range Interpretation Comments Troponin I (test code = SSP9701) -0.001 0-0.300 [facility] CenterCreatine Eycsdk2649-51-38 17:09:00* Test Item Value Reference Range Interpretation Comments Creatine Kinase (test code = 2157-6) 10 29-[address] [facility] CenterB-Type Natriuretic Yslpfzk7114-75-33 09:17:00* Test Item Value Reference Range Interpretation Comments B-Type Natriuretic Peptide (test code = 99826-8) 123.5 0-[address] [facility] CenterFree Hhoycgkqq0343-58-33 09:16:00* Test Item Value Reference Range Interpretation Comments Free Thyroxine (test code = 3024-7) 1.02 0.9-1.8 [facility] CenterHemoglobin A1c Baetznb1262-64-68 08:51:00 * Test Item Value Reference Range Interpretation Comments Hemoglobin A1c Percent (test code = Hemoglobin A1c Percent) 6.6 4.0-7.0 [facility] CenterProthrombin [id number] 23:17:00* Test Item Value Reference Range Interpretation Comments Prothrombin Time (test code = 5902-2) 13.7 11.9-14.5 [facility] CenterProthromb Time International Ratio 2018-04-12 23:17:00* Test Item Value Reference Range Interpretation Comments Prothromb Time International Ratio (test code = 6301-6) 1.14 Oral Anticoagulant Therapy INR Values:1. Low Intensity Therapy 1.5 - 2.02 . Moderate Intensity Therapy 2.0 - 3.03. High Intensity Therapy(1) 2.5 - 3. 54. High Intensity Therapy(2) 3.0 - 4.05. Panic Value INR > 5.0 [facility] CenterActivated Partial Thromboplast Time 2018-04-12 23:17:00* Test Item Value Reference Range Interpretation Comments Activated Partial Thromboplast Time (test code = 21561-7) 29.7 23.8-35.5 [facility] CenterIR CONSULT [place] [address] Patient Name: WILLIE WU MR #: [id number] : 1950 Age/Sex: 67/F Req #: [id number] Adm Physician: VALENTINA BARNES MD Ordered by: POLO COLE MD Report #: [id number] Location: MED/SURG2 Room/Bed: [facility] Procedure: [id number] D X/IR CONSULT Exam Date: Exam Time: REPORT ST ATUS: Signed Fluoroscopically guided lumbar puncture 04/21/2018 Pre-Proce dure Diagnosis: Meningitis Post-procedure Diagnosis:Meningitis Machine Operator: Otto Souza Cinder Crusher Operator: None Sedation: None. 1% lidocaine local anesthesia. Radiation Dose:42.78 mGy (cumulative air kerma) Fluoroscopy time:0.2 min utes Estimate blood loss: None. Blood administered: None Complications: N one Implants/Grafts: None Specimen: 16 mL clear, colorless CSF Proc edure: Informed consent was obtained and the patient placed prone after pan tank worker radiographs were obtained. A timeout was performed. The back was prepped and draped in standard sterile fashion. Using fluoroscopic guidance a 22-gauge spinal needle was advanced into the thecal sac at the L4-L5 level. Clear, col orless CSF was returned. 16 mL CSF was collected and submitted in 4 vials. The needle was removed and a sterile dressing applied. Findings: School Health Assistant rad iograph:5 nonrib-bearing lumbar vertebral bodies. Aortic atherosclerosis. Op ening pressure: 15 mm water prone position. Impression: Successful fluoro scopically-guided lumbar puncture. This report was generated with voice- recognition technology. Errors in printing equipment mechanic can occur. Please interpret ac cordingly and contact a radiologist if there are any questions regarding the r eport. Signed by: Dr. Liliane Souza M.D. on 04/21/2018 10:28 AM Dic tated By: LILIANE SOUZA MD 1028 COPY TO: ERIK COLE MD [facility] (PORTABLE) [place] [address] Patient Name: WILLIE WU MR #: [id number] : 1950 Age/Sex: 67/F Req #: [id number] Adm Physician: VALENTINA BARNES MD Ordered by: CATRACHITO COLLINS MD Report #: [id number] Location: MED/SURG2 Room/Bed: [facility] Procedure: [id number] DX /CHEST SINGLE (PORTABLE) Exam Date: 04/21/18 Exam Ti me: 1358 REPORT STATUS: Signed PROCEDURE: CHEST SINGLE (PORTABLE) T ECHNIQUE: Portable AP chest INDICATION: Post bronchoscopy COMPARISON: [facility], CT, CT CHEST W, 04/14/2018, 8:58. [...] CATRACHITO COLLINS MD FLUORO ASSIST NEURO/PAIN CASES [place] [address] Patient Name: WILLIE WU MR #: [id number] : 1950 Age/Sex: 67/F Req #: [id number] Adm Physician: VALENTINA BARNES MD Ordered by: POLO COLE MD Report #: [id number] Location: MED/SURG2 Room/Bed: [facility] Procedure: [id number] D X/FLUORO ASSIST NEURO/PAIN CASES Exam Date: 04/21/18 Exam Time: 0950 REPORT STATUS: Signed Fluoroscopically guided lumbar p uncture 04/21/2018 Pre-Procedure Diagnosis: Meningitis Post-procedure Diag nosis:Meningitis Machine Operator: Otto Souza Cinder Crusher Operator: None Sedation: None . 1% lidocaine local anesthesia. Radiation Dose:42.78 mGy (cumulative air k chance) Fluoroscopy time:0.2 minutes Estimate blood loss: None. Blood admin istered: None Complications: None Implants/Grafts: None Specimen: 16 mL cl ear, colorless CSF Procedure: Informed consent was obtained and the p atient placed prone after pan tank worker radiographs were obtained. A timeout was perfo rmed. The back was prepped and draped in standard sterile fashion. Using fluoroscopic guidance a 22-gauge spinal needle was advanced into the thecal sa c at the L4-L5 level. Clear, colorless CSF was returned. 16 mL CSF was collect ed and submitted in 4 vials. The needle was removed and a sterile dressing jon lied. Findings: School Health Assistant radiograph:5 nonrib-bearing lumbar vertebral bodies . Aortic [...] TO: POLO COLE MD LUMBAR SPINE PUNCTURE [place] [address] Patient Name: WILLIE WU MR #: [id number] : 1950 Age/Sex: 67/F Req #: [id number] Adm Physician: VALENTINA BARNES MD Ordered by: POLO COLE MD Report #: [id number] Locat ion: MED/SURG2 Room/Bed: [facility] Procedure: [id number] D X/LUMBAR SPINE PUNCTURE Exam Date: 04/21/18 Exam Case e: [id number] REPORT STATUS: Signed Fluoroscopically guided lumbar puncture Pre-Procedure Diagnosis: Meningitis Post-procedure Diagnosis:Men ingitis Machine Operator: Otto Souza Cinder Crusher Operator: None Sedation: None. 1% lido jessica local anesthesia. Radiation Dose:42.78 mGy (cumulative air kerma) F luoroscopy time:0.2 minutes Estimate blood loss: None. Blood administered: None Complications: None Implants/Grafts: None Specimen: 16 mL clear, colo rless CSF Procedure: Informed consent was obtained and the patient pl aced prone after pan tank worker radiographs were obtained. A timeout was performed. The back was prepped and draped in standard sterile fashion. Using fluorosco pic guidance a 22-gauge spinal needle was advanced into the thecal sac at the L4-L5 level. Clear, colorless CSF was returned. 16 mL CSF was collected and garza bmitted in 4 vials. The needle was removed and a sterile dressing applied. Findings: School Health Assistant radiograph:5 nonrib-bearing lumbar vertebral bodies. Aortic atherosclerosis. Opening pressure: 15 mm water prone position. Impressi on: Successful fluoroscopically-guided lumbar puncture. This report wa s generated with voice-recognition technology. Errors in printing equipment mechanic can occ ur. Please interpret accordingly and contact a radiologist if there are any qu estions regarding the report. Signed by: Dr. Liliane Souza M.D. on 018 10:28 AM Dictated By: LILIANE SOUZA MD 1028 Transcribed By: LINDA on 04/21/18 1028 COPY TO: POLO COLE MD MRI BRAIN WO [place] [address] Patient Name: WILLIE WU MR #: [id number] : 1950 Age/Sex: 67/F Req #: [id number] Adm Physician: VALENTINA BARNES MD Ordered by: KELLY SHIN M.D. Report #: [id number] Location: MED/SURG2 Room/Bed: [facility] Procedure: [id number] MRI/MRI BRAIN WO Exam [...] TO: KELLY WHITE M.D. CT CHEST W [place] [address] Patient Name: WILLIE WU MR #: [id number] : 1950 Age/Sex: 67/F Req #: [id number] Adm Physician: VALENTINA BARNES MD Ordered by: Maral Acosta NP Report #: [id number] Location: [facility] Room/Bed: [place] [address] Procedure: [id number] CT/CT CHEST W Exam Date: 04/14/18 Exam [...] on 04/14/2018 at 9:35 Dictated By: LILIANE SOUZA MD [facility] Signed By: LILIANE SOUZA MD on 04/14/18934 Transcribed By: CESAR on 934 COPY TO: MARAL ACOSTA NP MRA HEAD [place] [address] Patient Name: WILLIE WU MR #: [id number] : 1950 Age/Sex: 67/F Req #: [id number] Adm Physician: VALENTINA BARNES MD Ordered by: Maral Acosta NP Report #: [id number] Loc ation: [facility] Room/Bed: [facility] [address] Procedure: [id number] MRI/MRA HEAD WO Exam Date: Exam Time: REPORT STATUS: Signed History: Headaches, dizziness Comparison studies: None Technique: 3-D itbl-hd-dhrhfd intracranial. Contrast: None Findings: Internal carotid arteries, [...] M.D. on 03/25 3:00 PM Dictated By: KYLE BALDERAS MD 99 Transcribed By: LINDA on 04/14/18 1500 COPY TO: MARAL ACOSTA NP CT BRAIN WO [place] [address] Patient Name: WILLIE WU MR #: [id number] : 1950 Age/Sex: 67/F Req #: [id number] Adm Physician: Ordered by: OLIVER HOLLOWAY MD Report #: [id number] Location: ER Room/Bed: Procedure: [id number] CT/CT BRAIN WO Exam Zheng e: 04/12/18 [...] MD 0001 Trans cribed By: LINDA on 04/13/18 0001 COPY TO: OLIVER HOLLOWAY MD CHEST [facility] (PORTABLE) [place] [address] Patient Name: WILLIE WU MR #: [id number] : 1950 Age/Sex: 67/F Req #: [id number] Adm Physician: Ordered by: OLIVER HOLLOWAY MD Report #: [id number] Location: ER Room/Bed: Procedure: [id number] DX/CHEST SINGLE (PORTABL E) Exam Date: 04/12/18 Exam Time: 0 REPORT STATUS: Signed EXAMINATION: CHEST SINGLE (PORTABLE) [...]
[2020-10-21] MEDS: FAMOTIDINE 20 MG/2 ML VIAL IV SCH (19:30)
[2020-10-21 19:51] LABS: CLARITY,URINE CLEAR (CLEAR); COLOR,URINE YELLOW (YELLOW); LEUKOCYTE ESTERASE ,URINE NEGATIVE (NEGATIVE)
[2020-10-21 19:52] LABS: BILIRUBIN,URINE NEGATIVE (NEGATIVE); KETONES,URINE NEGATIVE (NEGATIVE); NITRITE,URINE NEGATIVE (NEGATIVE); PROTEIN,URINE DIPSTICK 2+ (NEGATIVE); URINE UROBILINOGEN 0.2 mg/dL (0.2 - 1)
[2020-10-21 20:19] LABS: BACTERIA,URINE MODERATE /HPF; EPITHELIAL CELLS,URINE FEW /LPF
[2020-10-21 21:08] VITALS: BP 159/65
[2020-10-21] MEDS: AMOXICILLIN/CLAVULANATE K 500 MG TAB PO SCH (21:30)
[2020-10-21 21:54] VITALS: BP 159/65
[2020-10-21] MEDS: INSULIN LISPRO 100 UNIT/1 ML 3ML VIAL SQ SCH (21:58)
[2020-10-21 22:54] VITALS: BP 159/65
[2020-10-21] MEDS ORDERED: HYDRALAZINE HCL 20 MG/ML VIAL IV PRN (23:30)
[2020-10-21] MEDS ORDERED: POLYETHYLENE GLYCOL 3350 17 GM PACK PO PRN (23:30)
[2020-10-21] MEDS ORDERED: TEMAZEPAM 7.5 MG CAP PO PRN (23:30)
[2020-10-21] MEDS ORDERED: PNEUMOCOCCAL VACCINE POLYVALENT 23 MCG/0.5 ML VIAL IM SCH (23:47)
[2020-10-21] MEDS ORDERED: INFLUENZA VIRUS VAC SPLIT INJ 0.5 ML SYR IM SCH (23:47)
[2020-10-21] MEDS ORDERED: TRAZODONE HCL100 MG PO (23:58)
[2020-10-22] VITALS (8 sets, daily range): BP systolic 85–161; BP diastolic 51–89
--- NOTE | 2020-10-22 01:10 | History and Physical ---
PRIMARY CARE PHYSICIAN: Danuta Najera. OUTPATIENT ONCOLOGIST: Dr. Guy Carrasco CHIEF COMPLAINT: Syncope. HISTORY OF PRESENT ILLNESS: The patient is a 70-year-old female who fell from a chair, was found on the floor by her family. [facility] Per ER physician documentation, she did report a loss of consciousness. The patient was previously seen at this facility on 04/14/2018, through 04/22/2018 due to syncope. She was found to have small cell lung cancer about 10 years ago, status post chemotherapy and radiation. She was diagnosed with dementia about a year and a half later and per Neurology, which saw the patient during that hospitalization, it was likely due to radiation to the brain. Her bilateral carotid Doppler at that time had shown right ICA 60 to 80% stenosis, left ICA with 16 to 30% stenosis. Her echocardiogram showed an ejection fraction of 60 to 65%, and her CT of the brain showed chronic infarcts. She had a recent EGD at [facility], which showed esophagitis, gastritis and a colonoscopy with hemorrhoids. MRI/MRA of the head showed no abnormalities. CT of the chest showed a right apical lung mass consistent with reported history of lung cancer. Adjacent to the mass was interstitial thickening and bronchial wall thickening, right infrahilar lymphadenopathy concerning for local node metastasis. She underwent a bronchoscopy on April 21, [address] Jarrett Mendez. She is currently seen in room 200 alone in no acute distress. PAST MEDICAL HISTORY: Hypertension, diabetes mellitus, CVA/stroke, dementia, hyperlipidemia, carotid stenosis, anemia, small cell lung cancer with history of chemotherapy and radiation, esophagitis, gastritis, hemorrhoids, presumed cranial radiation, obesity, psoriasis. PAST SURGICAL HISTORY: Tubal ligation, tonsillectomy, and biopsy of vena cava mass. FAMILY HISTORY: Mother had diabetes mellitus and hypertension. She had a nephew who had a cancer type unknown with a birthmark on the back which kept getting bigger. SOCIAL HISTORY: The patient lives with her daughter and three grandchildren. She served in the [employer] for 30 years. She has a history of tobacco use, which she states was two pack per day for a year. Occasional alcohol use and denies any previous illicit drug use. The patient uses a walker at home. ALLERGIES: CODEINE AND LORAZEPAM. HOME MEDICATIONS: 1. Amlodipine besylate 5 mg daily. 2. Lantus insulin 24 units at bedtime. 3. Lispro insulin 4 units at bedtime. 4. Trazodone 100 mg q.4 hours. 5. Pravastatin 10 mg at bedtime. 6. Metoprolol succinate 50 mg daily. 7. Lisinopril 10 mg daily. REVIEW OF SYSTEMS: CONSTITUTIONAL: The patient denies any recent weight loss, weight gain, chills, or fever. She currently denies pain. EYES: She wears glasses. EAR, NOSE, AND THROAT: No complaints. RESPIRATORY: Occasionally short of breath. GENITOURINARY: Complains of frequency but no dysuria. INTEGUMENTARY: Previous history of psoriasis. No current problems with skin. CARDIOVASCULAR: No complaints of chest pain or palpitations. GASTROINTESTINAL: No complaints of nausea, vomiting, diarrhea, or constipation. Her last bowel movement was this morning. MUSCULOSKELETAL: No complaints of muscle pain or cramps. NEUROLOGIC: Complains of a headache rated 10/10 on a 0 to 10 pain scale. ENDOCRINE: Known diabetic. HEMATOLOGIC/LYMPHATIC: No complaints of bleeding or bruising. PHYSICAL EXAMINATION: VITAL SIGNS: Temperature 98.3. She has been afebrile. Pulse is 97, blood pressure 159/65, respirations 18, and oxygen saturation 96% on room air. Height 5 feet 3 inches, weight 185 pounds. BMI 32.76. GENERAL: Supine, no acute distress. Head of bed elevated. LUNGS: Clear to auscultation. Respiratory pattern even and unlabored. HEENT: EOMI. Oropharynx clear. NECK: Supple. No lymphadenopathy, thyromegaly, or JVD. CARDIOVASCULAR: Regular rate and rhythm. No murmur. ABDOMEN: Bowel sounds positive. Soft, obese. EXTREMITIES: No pitting edema. No clubbing, cyanosis, or signs of DVT. NEUROLOGICAL: GCS 14 for verbal 4, motor 6. Oriented to person and place, sometimes slow with answers, known underlying history of dementia. LABORATORY DATA: WBC 8.38, hemoglobin 11, hematocrit 37, platelets 234. PT 13.2, INR 0.95, PTT 23.5. Sodium 135, potassium 4.9, chloride 102, CO2 of 21, anion gap 16.9, BUN 15, creatinine 1.26, estimated GFR 42. Glucose 279. Fingerstick blood glucose level 327, calcium 9.3, magnesium 1.8, total bilirubin 0.3, AST 45, ALT 56, alkaline phosphatase 88. Creatine kinase 25, CK-MB 0.6, troponin I less than 0.001. B-type natriuretic peptide 14. Total protein less than 0.8, albumin 4.1, globulin -3.3. Urinalysis showed clear yellow urine, pH 6.5, specific gravity 1.025, protein 2+, glucose 2+, ketones negative, trace blood, negative nitrite, negative bilirubin, urobilinogen 0.2, leukocyte esterase negative, RBC 6-10, WBC 6-10, few epithelial cells, moderate amount of urine bacteria. Coronavirus PCR collected today is still pending. Urine culture and sensitivity results are pending. IMAGING/OTHER: A 12-lead EKG was done showing sinus rhythm with a heart rate of 72. CT of the brain negative. Chest x-ray showed no acute thoracic abnormality. Spiculated right apical subpleural mass slightly increased in size when compared with prior exam and highly suspicious for malignancy. CT of the cervical spine; no cervical spine fractures or subluxation. Right upper lobe mass with bronchiectasis. Echocardiogram has been ordered with Dr. Charissa De Los Santos to interpret. Bilateral carotid Doppler ultrasound has been ordered with Dr. Charissa De Los Santos to interpret. ASSESSMENT AND PLAN: 1. Syncope with underlying history of cerebrovascular accident and dementia, recurrent, severe headache. Follow up on echocardiogram and bilateral carotid Doppler ultrasound results. CT of the brain was negative. Supportive care. Tylenol p.r.n. for headache. We will also add Fioricet in case if Tylenol does not work for the headache. Consider Neurology consult. 2. Fall (from chair), ambulatory dysfunction. PT eval and treat. 3. Spiculated right apical subpleural mass with chemotherapy/radiation for small-cell lung cancer. Dr. Márquez will speak further with the patient's daughter regarding this diagnosis, as it appears that the mass is slightly increased in size. Consider Oncology consult. 4. Controlled hypertension. Noted that systolic blood pressure elevated at 159. The patient's home medications amlodipine, lisinopril and metoprolol resumed. Monitor BP. 5. Uncontrolled type 2 diabetes mellitus with hyperglycemia. We will get hemoglobin A1c in the morning. Serum glucose 279. Fingerstick blood glucose 327. Home dose of Lantus 24 units at bedtime and lispro insulin 4 units a.c. resumed. Monitor fingerstick blood glucose level a.c. and at bedtime. 6. Prophylaxis. Pepcid. H and P dictated, observation status, billing code [id number], time spent greater than 70 minutes. Dictated by Herman Silva, NURSING PROGRAM COORDINATOR Jay Márquez MD HWP/MODL /[id number]
[2020-10-22] MEDS ORDERED: TRAZODONE HCL 50 MG TAB PO SCH (02:00)
[2020-10-22 02:43] LABS: CREATINE KINASE 37 IU/L (29-168)
[2020-10-22] MEDS ORDERED: INFLUENZA VIRUS VAC SPLIT INJ 0.5 ML SYR IM SCH (05:45)
[2020-10-22] MEDS ORDERED: PNEUMOCOCCAL VACCINE POLYVALENT 23 MCG/0.5 ML VIAL IM SCH (05:45)
[2020-10-22] MEDS: FAMOTIDINE 20 MG/2 ML VIAL IV SCH ×2 (06:03→18:26)
[2020-10-22] MEDS: AMOXICILLIN/CLAVULANATE K 500 MG TAB PO SCH ×3 (06:06→21:56)
[2020-10-22 06:40] LABS: BASOPHILS # (AUTO) 0.1 (0.0-0.1); BASOPHILS % 0.8 % (0.0-1.0); EOSINOPHILS # (AUTO) 0.2 (0.0-0.4); EOSINOPHILS % 1.9 % (0.0-6.0); HEMATOCRIT 35.1 % (34.2-44.1); HEMOGLOBIN 10.6 g/dL (12.0-16.0); LYMPHOCYTES # (AUTO) 2.2 (1.0-3.2); LYMPHOCYTES % 20.9 % (18.0-39.1); MEAN CORPUSCULAR HEMOGLOBIN 20.9 pg (28-32); MEAN CORPUSCULAR HGB CONC 30.2 g/dL (31-35); MEAN CORPUSCULAR VOLUME 69.4 fL (81-99); MONOCYTES # (AUTO) 0.6 (0.2-0.8); MONOCYTES % 6.2 % (4.4-11.3); NEUTROPHILS # (AUTO) 7.2 (2.1-6.9); NEUTROPHILS % 69.8 % (38.7-80.0); PLATELET COUNT 242 x10e3/uL (140-360); RED BLOOD COUNT 5.06 x10e6/uL (3.6-5.1); RED CELL DISTRIBUTION WIDTH 18.1 % (11.7-14.4)
--- NOTE | 2020-10-22 07:00 | NUR ---
Received patient mid fowlers position, side rails upx2, call light within reach. AAOX2 to person and place. Respirations even and unlabored. Instructed patient to use call light for assistance. Voiced understanding. Side rails upx2, call light within reach, bed alarm on. Will continue to monitor.
[2020-10-22 07:05] LABS: ALBUMIN 3.7 g/dL (3.5-5.0); ALBUMIN/GLOBULIN RATIO 0.9 (0.8-2.0); ANION GAP 16.1 mmol/L (8-16); CALCIUM 8.9 mg/dL (8.4-10.2); CHOL/HDL RATIO 5.1 (3.0-3.6); CREATININE, SERUM 1.1 mg/dL (0.57-1.11); POTASSIUM 4.1 mmol/L (3.5-5.1)
[2020-10-22 07:27] LABS: MAGNESIUM 1.6 MG/DL (1.3-2.1); PHOSPHORUS 3.4 MG/DL (2.3-4.7)
[2020-10-22 07:31] LABS: CREATINE KINASE 39 IU/L (29-168)
[2020-10-22 07:47] LABS: THYROID STIMULATING HORMONE 2.213 uIU/mL (0.350-4.940)
[2020-10-22] MEDS: DOCUSATE SODIUM 100 MG CAP PO SCH ×2 (08:27→15:51)
[2020-10-22] MEDS: ASPIRIN 81 MG ENTERIC COATED PO SCH (08:27)
[2020-10-22] MEDS: LISINOPRIL 10 MG TAB PO SCH (08:28)
[2020-10-22] MEDS: METOPROLOL SUCCINATE 50 MG TAB XL PO SCH (08:28)
[2020-10-22] MEDS: INSULIN LISPRO 100 UNIT/1 ML 3ML VIAL SQ SCH ×7 (08:41→21:00)
[2020-10-22] MEDS ORDERED: AMLODIPINE BESYLATE 5 MG TAB PO SCH (09:00)
[2020-10-22] MEDS ORDERED: ACETAMIN/BUTALBITAL/CAFFEINE TAB PO PRN ×2 (14:15)
--- NOTE | 2020-10-22 16:42 | Progress Note ---
DATE: CONSULTING PHYSICIAN: Dr. Charissa De Los Santos with Cardiology. SUBJECTIVE: The patient rates her headache 10/10 on a 0-10 pain scale. RN was alerted to give Tylenol and Fioricet was added in case the Tylenol was ineffective. This may be due to her right bottom jaw toothache, which she was unable to rate. Per the daughter at the bedside, the patient is out of bed at home, has generally good mobility. She probably uses walker, but does not consistently use a walker at home. OBJECTIVE: VITAL SIGNS: Temperature 98.2, afebrile, pulse 96, blood pressure 126/74, respirations 18, and oxygen saturation 99%. GENERAL: Supine, head of bed elevated. No acute distress. LUNGS: Clear to auscultation. Respirations even and nonlabored. No supplemental oxygen. HEENT: EOMI. Oropharynx clear. NECK: Supple. CARDIOVASCULAR: Regular rate and rhythm without murmur. ABDOMEN: Bowel sounds positive. Soft, nontender, obese. EXTREMITIES: With no pitting edema. No clubbing, cyanosis, or signs of DVT. NEUROLOGICAL: GCS 13-14, eye 3-4, verbal 4-5, motor 6. Oriented to person and place. Sometimes slow to answer questions, known underlying history of dementia. LABORATORY DATA: WBCs 10.32, hemoglobin 10.6, hematocrit 35.1, platelets 242, and neutrophils 69.8%. Sodium 135, potassium 4.1, chloride 103, CO2 of 20, anion gap 16.1, BUN 14, creatinine 1.1, estimated GFR 49, glucose 258, and calcium 8.9. Total bilirubin 0.4, AST 42, ALT 50, alkaline phosphatase 86, total protein 7.7, albumin 3.7, globulin 4.0, triglycerides 279, cholesterol 153, LDL 67, HDL 30, creatine kinase 37 and 39, and CK-MB 0.7 and 0.6. Troponin I less than 0.001 twice. Hemoglobin A1c 10.4%, phosphorus 3.4, and magnesium 1.6. TSH 2.213, free T4 is 0.98. Fingerstick blood glucose levels 257, 272. Coronavirus PCR collected 10/21, not detected. Preliminary urine culture and sensitivity shows culture in progress, re-incubation required. IMAGING/OTHER: Carotid Doppler ultrasound showed evidence of carotid disease bilaterally without significant carotid stenosis in either side. ASSESSMENT AND PLAN: 1. Syncope with underlying history of cerebrovascular accident and dementia, severe headache with headache possibly due to right lower jaw toothache. Echocardiogram showed an ejection fraction of 55%. Bilateral carotid Doppler ultrasound without any significant stenosis. Cardiology has seen patient, evaluated her and okayed for discharge home. We used Tylenol p.r.n. for headache. Fioricet can be used if Tylenol ineffective. 2. Leukocytosis with possible acute urinary tract infection. Urine culture requires re-incubation as specimen may be contaminated. We will ask that urine culture and sensitivity be recollected via straight catheterization. We will reassess WBCs in the morning. Changed from observation to inpatient status. 3. Fall (from chair), ambulatory dysfunction. PT eval and treat has been ordered. It is Thanksving . Physical Therapy will not be here until Friday. 4. Spiculated right apical subpleural mass with underlying history of chemotherapy/radiation for small cell lung cancer. Per Radiology documentation, it appears that the mass is slightly increased in size. The patient will need to follow up with her outpatient oncologist, Dr. Burns. 5. Controlled hypertension. Blood pressure 126/74. Monitor BP. Continue amlodipine, lisinopril and metoprolol. Cardiology following. 6. Uncontrolled type 2 diabetes mellitus with hyperglycemia. Hemoglobin A1c 10.4%. Fingerstick blood glucose level 257. Lantus increased from 24 units to 28 units at bedtime. Monitor FSBG before meals and at bedtime. 7. Acute hypomagnesemia. Magnesium level 1.6, 2 g of magnesium sulfate IV today. Reassess magnesium level in the morning. 8. Prophylaxis. Pepcid, SCDs. Inpatient, billing code [id number], time spent greater than 35 minutes. Dictated by Herman Silva, ALAN MD PEÑA BellP/MODL /[id number]
--- NOTE | 2020-10-22 19:05 | NUR ---
Report given to oncoming nurse of patients status. Resting in bed. No s/s of acute distress noted. Side rails upx2, call light within reach, bed alarm on.
--- NOTE | 2020-10-22 19:48 | NUR ---
BP 85/51 HR 72 SPO2 98%, SPOKE TO MARAL PRODUCTION STATISTICAL CLERK, ORDER FOR 1 L NS BOLUS.
--- NOTE | 2020-10-22 20:03 | Consultation ---
DATE OF CONSULTATION: 10/22/2020 Cardiac Consultation REASON FOR CONSULT: Syncope. HISTORY: I was uli to have the patient daughter at bedside. She is taking care of her and she is aware of all her medical health problem by summary. This is a 70-year-old lady who is known with very longstanding history of diabetes mellitus of many years duration. In 2009, she was diagnosed with non-small cell cancer. She had biopsy and she was in induced coma because of the inferior vena cava was encased with cancer. She had extensive radiation and chemotherapy. She had also radiation to her brain. The patient survived it and she stop seeing her oncologist, although at that time, a spiculated abnormality noted on her x-ray. The patient did well with the exception she become demented and totally dependent on her family care. She cannot do anything to make any judgment by herself. She is still able to move and go around in her home. She is living with her daughter who is providing excellent support for her. The patient daughter came to home and she finds her mother falling from her chair. She was find on the floor. She brought by emergency room team to here. Her cardiac enzymes were normal. Her CT head showed chronic changes. Her chest x-ray showed spiculated mass in her lung. Her telemetry so far showed no major arrhythmias. In fact, patient daughter who is here at bedside as she is not quite sure if she passed out or not, but definite she was found on the floor. There were no seizure activity. There were no incontinence of urine or stool. She was not postictal at time she find her. REVIEW OF SYSTEMS: GENERAL: No fever, no chills. HEENT: No vision problem. No hearing problem. PULMONARY AND CARDIAC: The patient is ambulatory but limited activities. At this time of activity, there are no history to suggest angina or advanced congestive heart failure. There is probably sleep apnea and snoring. There are no cough, no hemoptysis. GI: No hematemesis. No melena. : Incontinence. MUSCULOSKELETAL: None. NEUROLOGICAL: The patient is totally demented, but she is nicely demented. She is very nicely managed by her daughter. ENDOCRINE: The patient is diabetic and she is noncompliant with eating or drinking. SOCIAL HISTORY: She lives with her daughter. She is nonsmoker and non-alcohol drinker. She stopped smoking in 2009 when she was diagnosed with lung cancer. PAST MEDICAL HISTORY: 1. Diabetes mellitus. 2. Obesity. 3. Non-small cell cancer which was extremely metastatic involving inferior vena cava, status post extensive radiation and chemotherapy, also radiation to the brain, which led to dementia. 4. 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 5. Hypertension. 6. Hyperlipidemia. 7. Skin psoriasis. 8. Tubal ligation. 9. Tonsillectomy. FAMILY HISTORY: Mother was diabetic and hypertensive. She had a nephew who had cancer also. ALLERGIES: CODEINE AND ATIVAN. HOME MEDICATIONS: Include: 1. Norvasc 5 mg a day. 2. Lisinopril 10 mg a day. 3. Toprol-XL 10 mg a day. 4. Pravastatin 20 mg a day. 5. Trazodone. 6. Lantus insulin. 7. Lispro insulin. PHYSICAL EXAMINATION: VITAL SIGNS: Height of 5 feet 3 inches, weight of 192 pounds, blood pressure 140/70, heart rate of 90, respiratory rate of 18, afebrile. HEENT: Pupils are equal reactive. NECK: No elevation of jugular venous pulsation. No bruit. CHEST: Clear to auscultation and percussion. HEART: PMI 5th left intercostal space. Normal first and second heart sound. ABDOMEN: Obesity is noted. No organomegaly. No abdominal bruits. EXTREMITIES: No cyanosis, no clubbing, no edema. No signs of deep venous thrombosis. NEUROLOGIC: Awake, alert, oriented, but quite forgetful. She is able to move all extremities. LABORATORY DATA: 1. Chest x-ray finding of right apical spiculated mass. The x-ray report given to the daughter by hand. 2. CT head showed no acute abnormalities. 3. Cardiac enzymes are normal. Hemoglobin A1c markedly elevated at 10.4%. TSH of 2.2. Electrolytes were normal. Hemoglobin of 10.6, hematocrit 35%. Lipid profile showed triglycerides of 279, cholesterol of 153, HDL of 30, LDL of 67. EKG normal sinus rhythm, left ventricular hypertrophy voltage. IMPRESSION AND PLAN: 1. Syncope. 2. Diabetes mellitus, poorly controlled. 3. Hypertension. 4. Hyperlipidemia. 5. Advanced metastatic non-small cell cancer of the lung, successfully treated with radiation. 6. 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 7. Spiculated lung mass noted on chest x-ray. 8. Hypertension. 9. Diabetes mellitus, poorly controlled. Very high probability of coronary artery disease, but no positive markers and no active symptoms. From a cardiac point of view, we will keep the patient on telemetry. If no major abnormality noted, then we will let the patient go home. Explained to the daughter, she needs to establish relationship with Cardiology and after a few visit and they need to make their mind if they want to investigate her coronary or carotid disease further. Probably stress test will be warranted. All this explained and discussed. Questions are answered. The copies of the chest x-ray and CT head are given to the patient daughter, speak to her PCP and to her oncologist. MD DELIA Felipe/WALLY /[id number]
--- NOTE | 2020-10-22 20:30 | NUR ---
BP AFTER BOLUS 114/66 HR 79
[2020-10-22] MEDS ORDERED: INSULIN GLARGINE 100 UNITS/ML VIAL SQ SCH ×2 (21:00)
[2020-10-22] MEDS ORDERED: PRAVASTATIN 20 MG TAB PO SCH (21:00)
[2020-10-23] VITALS: BP 120/80
[2020-10-23 04:00] VITALS: BP 133/66
[2020-10-23 05:35] LABS: BASOPHILS # (AUTO) 0.1 (0.0-0.1); BASOPHILS % 0.6 % (0.0-1.0); EOSINOPHILS # (AUTO) 0.2 (0.0-0.4); EOSINOPHILS % 1.8 % (0.0-6.0); HEMATOCRIT 36.3 % (34.2-44.1); HEMOGLOBIN 10.6 g/dL (12.0-16.0); LYMPHOCYTES # (AUTO) 2.3 (1.0-3.2); LYMPHOCYTES % 22.6 % (18.0-39.1); MEAN CORPUSCULAR HEMOGLOBIN 21.2 pg (28-32); MEAN CORPUSCULAR HGB CONC 29.2 g/dL (31-35); MEAN CORPUSCULAR VOLUME 72.6 fL (81-99); MONOCYTES # (AUTO) 0.7 (0.2-0.8); MONOCYTES % 7.2 % (4.4-11.3); NEUTROPHILS # (AUTO) 6.7 (2.1-6.9); NEUTROPHILS % 67.4 % (38.7-80.0); PLATELET COUNT 234 x10e3/uL (140-360); RED CELL DISTRIBUTION WIDTH 18.5 % (11.7-14.4)
[2020-10-23 06:06] LABS: ANION GAP 13.1 mmol/L (8-16); CALCIUM 8.8 mg/dL (8.4-10.2); CREATININE, SERUM 1.38 mg/dL (0.57-1.11); PHOSPHORUS 3.6 MG/DL (2.3-4.7); POTASSIUM 4.1 mmol/L (3.5-5.1)
[2020-10-23] MEDS: FAMOTIDINE 20 MG/2 ML VIAL IV SCH ×2 (06:15→17:42)
[2020-10-23] MEDS: AMOXICILLIN/CLAVULANATE K 500 MG TAB PO SCH ×2 (06:15→14:11)
--- NOTE | 2020-10-23 07:00 | NUR ---
RECEIVED BEDSIDE SHIFT REPORT FROM OFF GOING NIGHT NURSE. RESPIRATIONS EVEN AND NONLABORED. PATENT ABLE TO VOICE NEEDS. PATIENT IN STABLE CONDITION, NO S/S OF DISTRESS NOTED. IV SITE ASYMPTOMATIC AND PATENT , TRANSPARENT DRESSING C/D/I. BED IN LOWEST POSITION AND LOCKED, SIDE RAILS X 2, NON SKID SOCKS APPLIED. CALL LIGHT WITHIN REACH. Addendum: 10/23/20 at 0933 by Michelle Daly RN TELEMETRY APPLIED.
[2020-10-23] MEDS: INSULIN LISPRO 100 UNIT/1 ML 3ML VIAL SQ SCH ×6 (07:30→16:59)
[2020-10-23 08:00] VITALS: BP 139/75
[2020-10-23 08:45] VITALS: BP 139/75
[2020-10-23] MEDS: ASPIRIN 81 MG ENTERIC COATED PO SCH (09:21)
[2020-10-23] MEDS: DOCUSATE SODIUM 100 MG CAP PO SCH ×2 (09:21→16:57)
[2020-10-23] MEDS: LISINOPRIL 10 MG TAB PO SCH (09:22)
[2020-10-23] MEDS: METOPROLOL SUCCINATE 50 MG TAB XL PO SCH (09:22)
[2020-10-23 11:44] VITALS: BP 118/62
[2020-10-23] MEDS ORDERED: SODIUM CHLORIDE 0.9% 1000ML 1,000 ML IV SCH (13:00)
[2020-10-23] MEDS ORDERED: ONDANSETRON HCL 4 MG ORAL DISINTEGRATING TAB PO PRN (14:00)
--- NOTE | 2020-10-23 14:43 | NUR ---
Informed ALAN Sutton that pt and daughter wants her to go home with home health. He gave order for home health and said plan to dc today. CM called and spoke with Jocelyn at [facility] and verified that they take pt's insurance. Informed her CM will send referral. Home health referral faxed to [facility] at [phone] / Evan Nogueira rep with [facility] was also informed of referral and anticipated dc for today. Addendum: 10/23/20 at 1447 by Jyoti Carrillo CM Also gave home health correct address for pt. She is at [address] [place] [address] [address] [place], [place] [address]
[2020-10-23] MEDS ORDERED: AUGMENTIN 500-1 EACH PO (15:22)
[2020-10-23] MEDS ORDERED: NORVASC5 MG PO (15:22)
[2020-10-23] MEDS ORDERED: Insulin Glargine SQ (15:22)
[2020-10-23] MEDS ORDERED: COLACE100 MG PO (15:22)
[2020-10-23] MEDS ORDERED: Acetamin/Butalbital/Caffeine PO (15:22)
[2020-10-23] MEDS ORDERED: ASPIRIN EC81 MG PO (15:22)
[2020-10-23 15:59] VITALS: BP 130/64
--- NOTE | 2020-10-23 16:44 | NUR ---
Per Evan with [facility], they are able to accept pt. CM called pt's daughter Iliana and gave her [facility] contact information. CM asked her to call them if she does not hear from them within 24 hrs of discharge.
--- NOTE | 2020-10-23 18:24 | NUR ---
PATIENT DISCHARGED HOME WITH [facility] at [phone] / . PATIENT OFF THE UNIT @ 1815 VIA WHEELCHAIR ACCOMPANIED, TO THE LOBBY BY PCT. PATIENT IN STABLE CONDITION, NO S/S OF DISTRESS NOTED. IV ACCESS REMOVED WITH TIP INTACT. ALL PERSONAL ITEMS TAKEN WITH THE PATIENT. DISCHARGE TEACHING AND INSTRUCTION GIVEN TO THE PATIENT. PATIENT VERBALIZED UNDERSTANDING. DISCHARGE PAPERWORK AND PRESCRIPTION GIVEN TO THE PATIENT AND DAUGHTER.
--- NOTE | 2020-10-23 19:32 | Discharge Summary ---
CONSULTING PHYSICIAN: Dr. Charissa De Los Santos. PRIMARY CARE PHYSICIAN: Dr. Jay Tipton. OUTPATIENT ONCOLOGIST: Dr. Guzman. CHIEF COMPLAINT: Syncope. HISTORY: The patient is a 70-year-old female, who fell from a chair, was found on the floor by her family. She was admitted to the emergency department via [facility]. Per the emergency room physician documentation, she did report a loss of consciousness. The patient was previously seen at this facility from 04/14/2018 through 04/22/2018 due to syncope. Please see the history of present illness as dictated in the history and physical for more specific details of diagnostic tests from that visit. She was found to have small cell lung cancer about 10 years ago, status post chemotherapy and radiation. She was diagnosed with dementia about a year and a half later and per Neurology who saw the patient during that hospitalization, it was likely due to radiation to the brain. Please see dictated H and P from 10/21/2020 for the patient's past medical, surgical, family, and social history. ALLERGIES: CODEINE AND LORAZEPAM. ADMITTING DIAGNOSES: 1. Syncope with underlying history of cerebrovascular accident and dementia, recurrent, severe headache. 2. Fall (from chair), ambulatory dysfunction. 3. Spiculated right apical subpleural mass with history of chemotherapy/radiation for small cell lung cancer. 4. Controlled hypertension. 5. Uncontrolled type 2 diabetes mellitus with hyperglycemia. DISCHARGE DIAGNOSES: 1. Syncope with underlying history of cerebrovascular accident and dementia, severe headache, now resolved (with headache being possibly due to right lower jaw toothache). 2. Leukocytosis, improving, acute urinary tract infection ruled out. 3. Fall (from chair), ambulatory dysfunction. 4. Spiculated right apical subpleural mass with underlying history of chemotherapy/radiation for small cell lung cancer. 5. Controlled hypertension. 6. Uncontrolled type 2 diabetes mellitus with hyperglycemia. 7. Acute hypomagnesemia, resolved. HOSPITAL COURSE: During her stay, a 12-lead EKG showed sinus rhythm with a heart rate of 72. CT of the brain was negative. Chest x-ray showed no acute thoracic abnormality. Spiculated right apical subpleural mass slightly increased in size when compared with prior exam and highly suspicious for malignancy. The patient will need to follow up with her outpatient oncologist, Dr. Guzman. CT of the cervical spine showed no cervical spine fractures or subluxation. Right upper lobe mass with bronchiectasis. Regarding the patient's syncope, an echocardiogram was ordered, which showed an estimated ejection fraction of 55% per the preliminary report. A bilateral carotid Doppler ultrasound showed evidence of carotid disease without significant carotid stenosis bilaterally. WBCs on 10/22 was 10.32 and today 9.97, platelet count within normal limits at 234. Creatinine on admission was 1.26 and today 1.38. Estimated GFR 42 on admission and 38, today. Normal saline at 100 mL an hour started due to acute renal insufficiency. Upon discharge, the patient encouraged to increase her oral fluid intake. Due to mildly elevated WBCs, there was concern for possible urinary tract infection. On 10/21, urine culture and sensitivity showed no growth after 36 to 48 hours. This was recollected and on 10/22, urine culture and sensitivity preliminary report shows no growth after 18 to 24 hours. Cardiology saw and evaluated the patient and determined that she could be discharged from their standpoint. Today, the patient states "I feel pretty good." She has no headache now. Otherwise headache was rated 10/10 earlier in her admission. She states she still has right jaw pain with eating at times. She has no complaints of dizziness. No change in physical examination. Today vital signs; temperature 98.5, pulse 90, blood pressure 139/75, respirations 19, oxygen saturation 99% on room air. Aleksey physical therapist, saw the patient today and the patient ambulated 10 feet with minimal assistance, bed mobility was moderate assistance, and the patient does need assistance in sitting up. She is unable to sit alone. Thus, physical therapist recommended inpatient rehab. However, per Case Management, the patient does not qualify for inpatient rehab or snf facility, especially considering she is not on any IV antibiotics. She would only be there for physical therapy. My nurse case management spoke with the patient's daughter, who states that the patient will likely do better at home anyway. Thus, home health will need to be arranged for physical therapy. The patient and daughter agree with discharge plan. The patient's daughter states that someone is with the patient at all times when she is at home. Daughter will steel pickler rolling walker for her. The patient to continue on 1800 calorie ADA diet. Activity level as tolerated. Magnesium had been low at 1.6 on 10/22, repleted with 2 g of magnesium sulfate IV and today her magnesium level was within normal limits at 2.0. The patient to follow up with PCP in 1 to [address] De Los Santos's office to set up an appointment. Follow up with Dr. Guzman with Oncology. Dictated by Herman Silva, ALAN Jay Márquez MD HWP/ABELL /[id number]
[2020-10-23] MEDS ORDERED: TRAZODONE HCL 50 MG TAB PO SCH (21:00)
[2020-10-24] MEDS ORDERED: FAMOTIDINE 20 MG TAB PO SCH (07:30)
[2020-10-24] MEDS ORDERED: AMLODIPINE BESYLATE 5 MG TAB PO SCH (09:00)
== END 2020-10-23 19:00 | disposition home health service (06) | DRG 312 ==
LOC: ER 16:15 → ERHOLD 18:29 → MED/SURG2 20:15 → OBSVTOIN 10-22 14:49 → INTOOBSV 10-22 14:49
PROVIDERS: ADMIT Internal Medicine; ATTEND Internal Medicine
DX: R55 Syncope and collapse (principal); W07.XXXA Fall from chair, initial encounter; Y93.89 Activity, other specified; Y92.019 Unspecified place in single-family (private) house as the place of occurrence of the external cause; E11.65 Type 2 diabetes mellitus with hyperglycemia; I10 Essential (primary) hypertension; Z85.118 Personal history of other malignant neoplasm of bronchus and lung; Z86.73 Personal history of transient ischemic attack (TIA), and cerebral infarction without residual deficits; E83.42 Hypomagnesemia; R91.8 Other nonspecific abnormal finding of lung field; R51.9 Headache, unspecified; K08.89 Other specified disorders of teeth and supporting structures; F02.80 Dementia in other diseases classified elsewhere, unspecified severity, without behavioral disturbance, psychotic disturbance, mood disturbance, and anxiety; T45.1X5A Adverse effect of antineoplastic and immunosuppressive drugs, initial encounter; Z20.828 Contact with and (suspected) exposure to other viral communicable diseases; Y84.2 Radiological procedure and radiotherapy as the cause of abnormal reaction of the patient, or of later complication, without mention of misadventure at the time of the procedure
CPT/HCPCS: 36415; 70450; 71045; 72125; 80048; 80053; 80061; 81001; 82550; 82553; 82948; 83036; 83735; 83880; 84100; 84439; 84443; 84484; 85025; 85610; 85730; 87086; 90732; 93005; 93306; 93880; 96360; 99284; G0378; J7030; U0002